=== PATIENT | male | born 1945 | race Caucasian/White ===

== ENCOUNTER 2019-10-19 10:04 | Outpatient (CLI) | payer MEDICARE, SELFPAY ==
[2019-10-19 10:29] LABS: Basophils # 0.1 10^3/uL (0.0-0.1); Basophils % 0.5 %; Eosinophils # 0.3 10^3/uL (0.0-0.8); Eosinophils % 1.3 %; Hematocrit 38.8 % (42.0-52.0); Hemoglobin 12.7 g/dL (11.7-16.6); Lymphocytes # 18.9 10^3/uL (0.8-4.8); Lymphocytes % 74.9 %; Mean Corpuscular HGB Conc 32.7 g/dL (30.0-36.0); Mean Corpuscular Hemoglobin 30.1 pg (28.0-34.0); Mean Corpuscular Volume 91.9 fL (80-94); Mean Platelet Volume 11.7 fL (7.4-10.4); Monocytes # 0.9 10^3/uL (0.2-0.9); Monocytes % 3.4 %; Neutrophils % 19.7 %; Nucleated Red Blood Cells % 0 %; Platelet Count 212 10^3/cmm (130-400); Red Blood Count 4.22 10^6/uL (4.1-5.3); Red Cell Distribution Width 14.3 % (12.1-15.1); White Blood Count 25.3 10^3/uL (4.0-10.0)
[2019-10-19 10:42] LABS: Alanine Aminotransferase 39 U/L (0-41); Albumin Level 4.8 g/dL (3.5-5.2); Alkaline Phosphatase 56 IU/L (40-130); Anion Gap 17.6 (5-19); Aspartate Amino Transferase 30 U/L (0-40); Blood Urea Nitrogen 22 mg/dL (8-23); Calcium 9.6 mg/Dl (8.8-10.2); Carbon Dioxide 22 mmol/L (22-29); Chloride 102 mmol/L (98-107); Globulin 2.1 g/dL (1.3-4.6); Glucose 178 mg/dL (74-106); Lactate Dehydrogenase 185 U/L (135-225); Potassium 4.6 mmol/L (3.5-5.1); Sodium 137 mmol/L (136-145); Total Bilirubin 0.5 mg/dL (0.15-1.2); Total Protein 6.9 g/dL (6.6-8.7)
--- NOTE | 2019-10-19 12:31 | ONC FU_ITS ---
Dr. Phoenix follow up note Patient: Gianni Page Unit #: [id number]: 1945 Dicatated By: Gustavo Phoenix M.D.Date of Visit:Oct 19, 2019 Onc Med Follow-up/Prog Note History of Present Illness: Mr. 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 On 10/18/2017 his white blood count was 51,000 hemoglobin 13.8 hematocrit 43.5 platelets 126,000 neutrophil 14.9% lymphocytes 83.4% and on 10/23/2017 his white blood count was 19.2 hemoglobin 11.4 hematocrit 36 platelets 132,000 neutrophil 22.1% lymphocytes 74.4%. CT scan of chest abdomen pelvis done on 11/05/2017 showed no evidence of central lymphadenopathy or organomegaly except enlarged prostate gland Came for follow-up, denies any specific complaints, no fever or chills, no night sweats, no weight loss, no peripheral lymphadenopathy, no abdominal fullness. Patient has chronic hip problem for which he is going to [place] for evaluation. Medications: Allopurinol 1 (100 mg) Tablet Oral daily, Aspirin 1 (81 mg) Tablet Oral daily, Crestor 1 (20 mg) Tablet Oral daily, Ibuprofen 4 Tablet (of 200 mg) Oral t.i.d., Lisinopril 1 Tablet (of 20 mg) Oral daily, MetFORMIN HCl 1 Tablet (of 850 mg) Oral b.i.d., Metoprolol Succinate ER 0.5 (100 mg) Tablet SR 24 HR Oral daily Allergies: No Known Allergies. Review of Systems: Constitutional - Appetite is good and weight is stable. No fever, chills, hot flashes, or night sweats. Energy level is fair, ENMT - He has sinus congestion/drainage. No mouth sores. No sore throat or difficulty swallowing, Hematologic/Lymphatic - Patient states he bruises easily, Respiratory - No shortness of breath or cough. No pleuritic pain or hemoptysis, Cardiovascular - No angina pain. No palpitations, Gastrointestinal - Patient denies any nausea or vomiting. No heartburn or acid reflux. No diarrhea or constipation. No blood in the stool or black stools, Genitourinary (M) - No dysuria or hematuria. No urinary frequency. No urgency or incontinence, Musculoskeletal - Positive for pain, has appt with orthopedic physician, Neurologic - No headache or dizziness. No numbness/paresthesias or other focal neurologic symptoms, Psychiatric - No anxiety or depression. No insomnia. Vital Signs: Performed on Oct 19, 2019 11:30 Height - 70.00 in Weight - 231.2 lbs (HIGH) BSA - 2.22 sq.m BMI - 33.17 (HIGH) Temperature - 97.1 F (LOW) Pulse - 48 /min (LOW) Respiration - 20 /min BP - 142/70 mm(hg) (HIGH) O2 Sat - 95 % (LOW) Pain - 6 Performance Status: 1 - No physically strenuous activity, but ambulatory and able to carry out light or sedentary work (e.g. office work, light house work). (ECOG) Physical Examination: ENMT - No oral exudates, ulcers, masses, thrush or mucositis. Oropharynx clear. Tongue normal, Hematologic/Lymphatic - No petechiae or purpura. No tender or palpable lymph nodes in the cervical, supraclavicular, axillary or inguinal area, Respiratory - Lungs are clear to auscultation without rhonchi or wheezing, Cardiovascular - Regular rate and rhythm of heart, Abdomen - Non-tender, non-distended, Good bowel sounds. No guarding or rebound tenderness. No pulsatile masses, Extremities - no edema. Lab/Imaging: Test performed on Oct 19, 2019 10:16 Glucose 178 mg/dL LDH, Total 185 IU/L BUN 22 mg/dL Creatinine 0.9 mg/dL Cr Clearance (Est) 105.2000 mL/min Sodium 137 mmol/L Potassium 4.6 mmol/L Chloride 102 mmol/L CO2 22 mmol/L Calcium 9.6 mg/dL Protein, Total 6.9 g/dL Albumin 4.8 g/dL Globulin 2.1 g/dL Bilirubin, Total 0.5 mg/dL Alkaline Phosphatase 56 IU/L AST (SGOT) 30 IU/L ALT (SGPT) 39 IU/L WBC 25.3 10^9/L RBC 4.22 10^12/L HGB 12.7 g/dL HCT 38.8 % MCV 91.9 fl MCH 30.1 pg MCHC 32.7 g/dL RDW 14.3 % Platelet Count 212 10^9/L MPV 11.7 fL Neutrophils (Gran) 5.0 10^9/L Lymphocytes 18.9 10^9/L Monocytes 0.9 10^9/L Eosinophils 0.3 10^9/L Basophils 0.1 10^9/L Neutrophil % 1.3 % Manual Lymphocytes 74.9 % Manual Monocytes 3.4 % Manual Eosinophils 1.3 % Manual Basophils 0.5 % NRBCs 0.00 /100 WBC Test performed on May 04, 2019 12:32 Anion Gap 16.4 Lymphocyte % 71.3 % Monocyte % 4.2 % Eosinophil % 1.4 % Basophils % 0.4 % Impression: Chronic lymphocytic leukemia as per flow cytometry done on hold blood on 10/19/2017. It showed monotypic B cells lymphocytes positive for CD19, CD20, CD5 and CD23. And shows surface lambda light chains restriction. CD10 and FMC 7 are negative. For than 30% of monotypic B-cell expressed CD38 Stage 0 FISH analysis shows positive for gain or rearrangement of IGH, however IGH/CCND1 fusion was not detected ,so this finding suggests either again of IGH or an IGH rearrangement with an unidentified partner. this pattern is not of known prognostic significance IgA 290, IgG 790, IgM 170 and total LDH 227 , All within normal limits CT scan of chest abdomen pelvis done on 11/05/2017 showed no axillary supraclavicular, mediastinal or hilar lymphadenopathy and also there is a no evidence of intra-abdominal, retroperitoneal or pelvic lymphadenopathy either Prostrate gland enlargement, being followed by Dr. Lewis Plan: Discussed with patient regarding his labs white blood count 25.3 hemoglobin 12.7 crit 38.8 platelets 212,000 CMP within normal limit except glucose 178 and his LDH is also normal at 185 Clinically, patient is doing well with no B symptoms suggestive of disease progression his lab workup is within normal range. And no evidence of peripheral lymphadenopathy, At this point we'll continue to monitor and he will return to clinic in 6 months with CBC CMP and LDH. Signed By: Gustavo Phoenix M.D. <<Signature on File>>
== END 2019-10-19 10:05 | disposition home or self-care (01) ==
LOC: ONCMED 10:09
PROVIDERS: Family Provider Internal Medicine; PCP Internal Medicine; Visit Provider Internal Medicine Hematology & Oncology
DX: C91.10 Chronic lymphocytic leukemia of B-cell type not having achieved remission (principal); Z79.82 Long term (current) use of aspirin; N40.0 Benign prostatic hyperplasia without lower urinary tract symptoms
CPT/HCPCS: 80053; 83615; 85025; G0463

== ENCOUNTER 2020-04-19 09:28 | Outpatient (CLI) | payer MEDICARE, SELFPAY ==
[2020-04-19 09:54] LABS: Basophils # 0.2 10^3/uL (0.0-0.1); Basophils % 0.6 %; Eosinophils # 0.3 10^3/uL (0.0-0.8); Eosinophils % 1.1 %; Hematocrit 42.8 % (42.0-52.0); Hemoglobin 13.5 g/dL (11.7-16.6); Lymphocytes # 22.9 10^3/uL (0.8-4.8); Lymphocytes % 79.3 %; Mean Corpuscular HGB Conc 31.5 g/dL (30.0-36.0); Mean Corpuscular Hemoglobin 29.8 pg (28.0-34.0); Mean Corpuscular Volume 94.5 fL (80-94); Mean Platelet Volume 12.2 fL (7.4-10.4); Monocytes # 0.8 10^3/uL (0.2-0.9); Monocytes % 2.7 %; Neutrophils # 4.68 10^3/uL (1.8-7.7); Neutrophils % 16.1 %; Nucleated Red Blood Cells % 0 %; Platelet Count 175 10^3/cmm (130-400); Red Blood Count 4.53 10^6/uL (4.1-5.3); Red Cell Distribution Width 14.3 % (12.1-15.1); White Blood Count 28.9 10^3/uL (4.0-10.0)
[2020-04-19 10:26] LABS: Alanine Aminotransferase 36 U/L (0-41); Albumin Level 4.8 g/dL (3.5-5.2); Alkaline Phosphatase 52 IU/L (40-130); Anion Gap 17.8 (5-19); Aspartate Amino Transferase 33 U/L (0-40); Blood Urea Nitrogen 13 mg/dL (8-23); Calcium 9.2 mg/dL (8.5-10.5); Carbon Dioxide 23 mmol/L (22-29); Chloride 104 mmol/L (98-107); Globulin 2.7 g/dL (1.3-4.6); Glucose 154 mg/dL (65-115); Lactate Dehydrogenase 183 U/L (135-225); Osmolality Calculated 289 mOsm/kg (285-295); Potassium 4.8 mmol/L (3.5-5.1); Sodium 140 mmol/L (136-145); Total Bilirubin 0.6 mg/dL (0.15-1.2); Total Protein 7.5 g/dL (6.6-8.7)
[2020-04-19 10:50] LABS: Slide Review Slide Review Perform
--- NOTE | 2020-04-19 11:27 | ONC FU_ITS ---
Dr. Phoenix follow up note Patient: Gianni Page Unit #: [id number]: 1945 Dicatated By: Gustavo Phoenix M.D.Date of Visit:Apr 19, 2020 Onc Med Follow-up/Prog Note History of Present Illness: Mr. 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 On 10/18/2017 his white blood count was 51,000 hemoglobin 13.8 hematocrit 43.5 platelets 126,000 neutrophil 14.9% lymphocytes 83.4% and on 10/23/2017 his white blood count was 19.2 hemoglobin 11.4 hematocrit 36 platelets 132,000 neutrophil 22.1% lymphocytes 74.4%. CT scan of chest abdomen pelvis done on 11/05/2017 showed no evidence of central lymphadenopathy or organomegaly except enlarged prostate gland Came for follow-up, denies any specific complaints, no fever chills, no nausea or vomiting, no diarrhea or constipation, no night sweats, no weight loss, no peripheral lymphadenopathy, no recurrent fever. Patient is scheduled for left hip surgery/replacement. Medications: Allopurinol 1 (100 mg) Tablet Oral daily, Aspirin 1 (81 mg) Tablet Oral daily, Crestor 1 (20 mg) Tablet Oral daily, Ibuprofen 4 Tablet (of 200 mg) Oral t.i.d., Lisinopril 1 Tablet (of 20 mg) Oral daily, MetFORMIN HCl 1 Tablet (of 850 mg) Oral b.i.d., Metoprolol Succinate ER 0.5 (100 mg) Tablet SR 24 HR Oral daily Allergies: No Known Allergies. Review of Systems: Constitutional - Appetite is good and weight is stable. No fever, chills, hot flashes, or night sweats. Energy level is fair, ENMT - He has sinus congestion/drainage. No mouth sores. No sore throat or difficulty swallowing, Hematologic/Lymphatic - Patient states he bruises easily, Respiratory - No shortness of breath or cough. No pleuritic pain or hemoptysis, Cardiovascular - No angina pain. No palpitations, Gastrointestinal - Patient denies any nausea or vomiting. No heartburn or acid reflux. No diarrhea or constipation. No blood in the stool or black stools, Genitourinary (M) - No dysuria or hematuria. No urinary frequency. No urgency or incontinence, Musculoskeletal - Positive for pain, has appt with orthopedic physician, Neurologic - No headache or dizziness. No numbness/paresthesias or other focal neurologic symptoms, Psychiatric - No anxiety or depression. No insomnia. Vital Signs: Performed on Apr 19, 2020 11:05 Height - 70.00 in Weight - 218.0 lbs (LOW) BSA - 2.17 sq.m BMI - 31.28 (HIGH) Temperature - 97.6 F (LOW) Pulse - 50 /min (LOW) Respiration - 20 /min BP - 130/64 mm(hg) O2 Sat - 97 % Pain - 0 Performance Status: 1 - No physically strenuous activity, but ambulatory and able to carry out light or sedentary work (e.g. office work, light house work). (ECOG) Physical Examination: ENMT - No mouth sores no thrush no jaundice, Respiratory - Lungs are clear, Cardiovascular - Regular rate and rhythm of heart, Abdomen - soft, bowel sounds present, Extremities - No visible edema. Lab/Imaging: Most recent lab results are not available for this patient. Impression: Chronic lymphocytic leukemia as per flow cytometry done on hold blood on 10/19/2017. It showed monotypic B cells lymphocytes positive for CD19, CD20, CD5 and CD23. And shows surface lambda light chains restriction. CD10 and FMC 7 are negative. For than 30% of monotypic B-cell expressed CD38 Stage 0 FISH analysis shows positive for gain or rearrangement of IGH, however IGH/CCND1 fusion was not detected ,so this finding suggests either again of IGH or an IGH rearrangement with an unidentified partner. this pattern is not of known prognostic significance IgA 290, IgG 790, IgM 170 and total LDH 227 , All within normal limits CT scan of chest abdomen pelvis done on 11/05/2017 showed no axillary supraclavicular, mediastinal or hilar lymphadenopathy and also there is a no evidence of intra-abdominal, retroperitoneal or pelvic lymphadenopathy either Prostrate gland enlargement, being followed by Dr. Lewis Plan: Discussed with patient regarding his labs white blood count 28.9 hemoglobin 13.5 crit 42.8 platelets 175,000 CMP within normal limits except glucose 154 and an LDH is also within normal limits at 183 Clinically, patient doing well with no signs symptoms suggestive of disease progression his follow-up labs shows mild/moderate lymphocytosis due to CLL with a normal hemoglobin and platelets as well as LDH. No evidence of peripheral lymphadenopathy or organomegaly we will continue to monitor and he will return to clinic in 6 months with CBC CMP and LDH Signed By: Gustavo Phoenix M.D. <<Signature on File>>
== END 2020-04-19 09:29 | disposition home or self-care (01) ==
LOC: ONCMED 09:31
PROVIDERS: PCP Internal Medicine; Visit Provider Internal Medicine Hematology & Oncology
DX: C91.10 Chronic lymphocytic leukemia of B-cell type not having achieved remission (principal); N40.0 Benign prostatic hyperplasia without lower urinary tract symptoms
CPT/HCPCS: 80053; 83615; 85025; G0463

== ENCOUNTER 2020-10-11 09:23 | Outpatient (CLI) | payer MEDICARE, SELFPAY ==
[2020-10-11 10:15] LABS: Basophils # 0.1 10^3/uL (0.0-0.1); Basophils % 0.5 %; Eosinophils # 0.2 10^3/uL (0.0-0.8); Hematocrit 40.1 % (42.0-52.0); Hemoglobin 12.7 g/dL (11.7-16.6); Lymphocytes # 14.1 10^3/uL (0.8-4.8); Mean Corpuscular HGB Conc 31.7 g/dL (30.0-36.0); Mean Corpuscular Hemoglobin 29.5 pg (28.0-34.0); Mean Corpuscular Volume 93.3 fL (80-94); Mean Platelet Volume 12.8 fL (7.4-10.4); Monocytes # 0.8 10^3/uL (0.2-0.9); Neutrophils # 1.57 10^3/uL (1.8-7.7); Neutrophils % 9.4 %; Nucleated Red Blood Cells % 0 %; Platelet Count 169 10^3/cmm (130-400); Red Cell Distribution Width 14.8 % (12.1-15.1); White Blood Count 16.7 10^3/uL (4.0-10.0)
[2020-10-11 10:34] LABS: Alanine Aminotransferase 32 U/L (0-41); Albumin Level 4.7 g/dL (3.5-5.2); Alkaline Phosphatase 58 IU/L (40-130); Anion Gap 16.7 (5-19); Aspartate Amino Transferase 28 U/L (0-40); Blood Urea Nitrogen 23 mg/dL (8-23); Calcium 9.3 mg/dL (8.5-10.5); Carbon Dioxide 22 mmol/L (22-29); Chloride 102 mmol/L (98-107); Globulin 2.6 g/dL (1.3-4.6); Glucose 139 mg/dL (65-115); Lactate Dehydrogenase 181 U/L (135-225); Osmolality Calculated 288 mOsm/kg (285-295); Potassium 4.7 mmol/L (3.5-5.1); Sodium 136 mmol/L (136-145); Total Protein 7.3 g/dL (6.6-8.7)
[2020-10-11 11:28] LABS: Slide Review Slide Review Perform
--- NOTE | 2020-10-11 12:20 | ONC FU_ITS ---
Dr. Phoenix follow up note Patient: Gianni Page Unit #: [id number]: 1945 Dicatated By: Gustavo Phoenix M.D.Date of Visit:Oct 11, 2020 Onc Med Follow-up/Prog Note History of Present Illness: Mr. 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 On 10/18/2017 his white blood count was 51,000 hemoglobin 13.8 hematocrit 43.5 platelets 126,000 neutrophil 14.9% lymphocytes 83.4% and on 10/23/2017 his white blood count was 19.2 hemoglobin 11.4 hematocrit 36 platelets 132,000 neutrophil 22.1% lymphocytes 74.4%. CT scan of chest abdomen pelvis done on 11/05/2017 showed no evidence of central lymphadenopathy or organomegaly except enlarged prostate gland Came for follow-up, denies any specific complaints, no fever chills, no nausea vomiting, no diarrhea or constipation, no night sweats, no recurrent fever but weight loss which is intentional to control diabetes. Patient is watching his diet and following diabetic diet. No peripheral lymphadenopathy Medications: Allopurinol 1 (100 mg) Tablet Oral daily, Aspirin 1 (81 mg) Tablet Oral daily, Crestor 1 (20 mg) Tablet Oral daily, Ibuprofen 4 Tablet (of 200 mg) Oral t.i.d., Lisinopril 1 Tablet (of 20 mg) Oral daily, MetFORMIN HCl 1 Tablet (of 850 mg) Oral b.i.d., Metoprolol Succinate ER 0.5 (100 mg) Tablet SR 24 HR Oral daily Allergies: No Known Allergies. Review of Systems: Review of Systems is not available for this patient. Vital Signs: Performed on Oct 11, 2020 11:22 Height - 70.00 in Weight - 212.4 lbs (LOW) BSA - 2.14 sq.m BMI - 30.48 (HIGH) Temperature - 97.3 F (LOW) Pulse - 51 /min (LOW) Respiration - 16 /min BP - 126/63 mm(hg) O2 Sat - 97 % Pain - 0 Performance Status: 0 - Fully active, able to carry on all predisease activities without restrictions. (ECOG) Physical Examination: ENMT - No mouth sores, no thrush, no jaundice no cervical or axillary lymphadenopathy, Respiratory - Lungs are clear to auscultation, Cardiovascular - Regular rate and rhythm of heart, Abdomen - Soft, bowel sounds present, Extremities - No visible edema. Lab/Imaging: Test performed on Apr 19, 2020 09:39 LDH (Total) 183 U/L Sodium 140 mmol/L Potassium 4.8 mmol/L Chloride 104 mmol/L CO2 23 mmol/L Anion Gap 17.8 BUN 13 mg/dL Creatinine 0.7 mg/dL Cr Clearance (Est) 125.57 mL/min Glucose 154 mg/dL Calcium 9.2 mg/dL Osmolality - Calculated 289 mOsm/kg Protein, Total 7.5 g/dL Albumin 4.8 g/dL Globulin 2.7 g/dL Bilirubin, Total 0.6 mg/dL ALT (SGPT) 36 U/L AST (SGOT) 33 U/L Alkaline Phosphatase 52 IU/L WBC 28.9 10 3/uL RBC 4.53 10 6/uL HGB 13.5 g/dL HCT 42.8 % MCV 94.5 fL MCH 29.8 pg MCHC 31.5 g/dL RDW 14.3 % Platelet Count 175 10 3/cmm MPV 12.2 fL Neutrophils 4.68 10 3/uL Lymphocytes 22.9 10 3/uL Monocytes 0.8 10 3/uL Eosinophils 0.3 10 3/uL Basophils 0.2 10 3/uL Neutrophil % 16.1 % Lymphocyte % 79.3 % Monocyte % 2.7 % Eosinophil % 1.1 % Basophils % 0.6 % NRBC % 0 % CBC Slide Review Slide Review Perform SLIDE REVIEW AGREES WITH AUTOMATED DIFFERENTIAL Impression: Chronic lymphocytic leukemia as per flow cytometry done on hold blood on 10/19/2017. It showed monotypic B cells lymphocytes positive for CD19, CD20, CD5 and CD23. And shows surface lambda light chains restriction. CD10 and FMC 7 are negative. For than 30% of monotypic B-cell expressed CD38 Stage 0 FISH analysis shows positive for gain or rearrangement of IGH, however IGH/CCND1 fusion was not detected ,so this finding suggests either again of IGH or an IGH rearrangement with an unidentified partner. this pattern is not of known prognostic significance IgA 290, IgG 790, IgM 170 and total LDH 227 , All within normal limits CT scan of chest abdomen pelvis done on 11/05/2017 showed no axillary supraclavicular, mediastinal or hilar lymphadenopathy and also there is a no evidence of intra-abdominal, retroperitoneal or pelvic lymphadenopathy either Prostrate gland enlargement, being followed by Dr. Lewis Plan: Discussed with patient regarding his labs white blood count 16.7 compared to 28.9 on April 19, 2020, hemoglobin 12.7 g hematocrit 40.1 platelets 169,000 CMP within normal limits LDH 181 Clinically, patient doing well with no new signs symptoms, no B symptoms, no peripheral lymphadenopathy, no abdominal fullness, there is no signs symptom suggestive of disease progression his follow-up labs shows mild leukocytosis/lymphocytosis which is stable rather improved with normal hemoglobin and platelet count and LDH, will continue to monitor and he will return to clinic in 6 months with CBC CMP and LDH. Signed By: Gustavo Phoenix M.D. <<Signature on File>>
== END 2020-10-11 09:24 | disposition home or self-care (01) ==
LOC: ONCMED 09:26
PROVIDERS: PCP Physician Assistant; Visit Provider Internal Medicine Hematology & Oncology
DX: C91.10 Chronic lymphocytic leukemia of B-cell type not having achieved remission (principal); D72.820 Lymphocytosis (symptomatic); N40.0 Benign prostatic hyperplasia without lower urinary tract symptoms; Z79.899 Other long term (current) drug therapy
CPT/HCPCS: 36415; 80053; 83615; 85025; G0463

== ENCOUNTER 2021-04-18 09:04 | Outpatient (CLI) | payer MEDICARE, SELFPAY ==
[2021-04-18 09:45] LABS: Basophils # 0.1 10^3/uL (0.0-0.1); Basophils % 0.5 %; Eosinophils # 0.4 10^3/uL (0.0-0.8); Eosinophils % 1.4 %; Hematocrit 38.3 % (42.0-52.0); Hemoglobin 12.5 g/dL (11.7-16.6); Lymphocytes # 22.7 10^3/uL (0.8-4.8); Mean Corpuscular HGB Conc 32.6 g/dL (30.0-36.0); Mean Corpuscular Hemoglobin 31.6 pg (28.0-34.0); Monocytes # 0.8 10^3/uL (0.2-0.9); Monocytes % 2.9 %; Neutrophils # 4.27 10^3/uL (1.8-7.7); Nucleated Red Blood Cells % 0.1 %; Platelet Count 185 10^3/cmm (130-400); Red Blood Count 3.95 10^6/uL (4.1-5.3); Red Cell Distribution Width 14.3 % (12.1-15.1); White Blood Count 28.4 10^3/uL (4.0-10.0)
[2021-04-18 10:10] LABS: Alanine Aminotransferase 20 U/L (0-41); Albumin Level 4.3 g/dL (3.5-5.2); Alkaline Phosphatase 45 IU/L (40-130); Anion Gap 15.7 (5-19); Aspartate Amino Transferase 18 U/L (0-40); Blood Urea Nitrogen 25 mg/dL (8-23); Calcium 8.7 mg/dL (8.5-10.5); Carbon Dioxide 20 mmol/L (22-29); Chloride 105 mmol/L (98-107); Globulin 2.2 g/dL (1.3-4.6); Glucose 125 mg/dL (65-115); Lactate Dehydrogenase 172 U/L (135-225); Osmolality Calculated 288 mOsm/kg (285-295); Potassium 4.7 mmol/L (3.5-5.1); Sodium 136 mmol/L (136-145); Total Bilirubin 0.4 mg/dL (0.15-1.2); Total Protein 6.5 g/dL (6.6-8.7)
--- NOTE | 2021-04-18 11:53 | ONC FU_ITS ---
Dr. Phoenix follow up note Patient: Gianni Page Unit #: [id number]: 1945 Dicatated By: Gustavo Phoenix M.D.Date of Visit:Apr 18, 2021 Onc Med Follow-up/Prog Note History of Present Illness: Mr. 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 On 10/18/2017 his white blood count was 51,000 hemoglobin 13.8 hematocrit 43.5 platelets 126,000 neutrophil 14.9% lymphocytes 83.4% and on 10/23/2017 his white blood count was 19.2 hemoglobin 11.4 hematocrit 36 platelets 132,000 neutrophil 22.1% lymphocytes 74.4%. CT scan of chest abdomen pelvis done on 11/05/2017 showed no evidence of central lymphadenopathy or organomegaly except enlarged prostate gland Came for follow-up, denies any specific complaint, patient said he is feeling much better after hip replacement, no fever chills, no nausea or vomiting, no diarrhea or constipation, no night sweats, no recurrent fever but weight loss which is intentional as patient is watching carbs and sugars. No peripheral lymphadenopathy, no abdominal fullness Medications: Allopurinol 1 (100 mg) Tablet Oral daily, Aspirin 1 (81 mg) Tablet Oral daily, Crestor 1 (20 mg) Tablet Oral daily, Ibuprofen 4 Tablet (of 200 mg) Oral t.i.d., Lisinopril 1 Tablet (of 20 mg) Oral daily, MetFORMIN HCl 1 Tablet (of 850 mg) Oral b.i.d., Metoprolol Succinate ER 0.5 (100 mg) Tablet SR 24 HR Oral daily Allergies: No Known Allergies. Review of Systems: Review of Systems is not available for this patient. Vital Signs: Performed on Apr 18, 2021 11:00 Height - 70.00 in Weight - 203.2 lbs (LOW) BSA - 2.10 sq.m BMI - 29.16 Temperature - 97.3 F (LOW) Pulse - 53 /min (LOW) Respiration - 18 /min BP - 131/69 mm(hg) O2 Sat - 97 % Pain - 5 Fatigue - 0 Performance Status: 0 - Fully active, able to carry on all predisease activities without restrictions. (ECOG) Physical Examination: ENMT - No mouth sores, no thrush, no jaundice shotty cervical lymphadenopathy, Respiratory - Lungs are clear to auscultation, Cardiovascular - Regular rate and rhythm of heart, Abdomen - Soft, bowel sounds present, Extremities - No visible edema or rash. Lab/Imaging: Most recent lab results are not available for this patient. Impression: Chronic lymphocytic leukemia as per flow cytometry done on hold blood on 10/19/2017. It showed monotypic B cells lymphocytes positive for CD19, CD20, CD5 and CD23. And shows surface lambda light chains restriction. CD10 and FMC 7 are negative. For than 30% of monotypic B-cell expressed CD38 Stage 0 FISH analysis shows positive for gain or rearrangement of IGH, however IGH/CCND1 fusion was not detected ,so this finding suggests either again of IGH or an IGH rearrangement with an unidentified partner. this pattern is not of known prognostic significance IgA 290, IgG 790, IgM 170 and total LDH 227 , All within normal limits CT scan of chest abdomen pelvis done on 11/05/2017 showed no axillary supraclavicular, mediastinal or hilar lymphadenopathy and also there is a no evidence of intra-abdominal, retroperitoneal or pelvic lymphadenopathy either Prostrate gland enlargement, being followed by Dr. Lewis Plan: . Discussed with patient regarding his labs white blood count 28.4 compared to 16.7 previously hemoglobin 12.5 hematocrit 38.3 platelets 185,000 absolute lymphocyte count 22,700, CMP within normal limits including LDH Clinically, doing well with no new signs symptoms, no B symptoms his follow-up lab work-up shows fluctuating leukocytosis/lymphocytosis but normal hemoglobin and platelet count no evidence of peripheral lymphadenopathy or organomegaly, will continue to monitor and he will return to clinic in 6 months with CBC CMP and LDH Signed By: Gustavo Phoenix M.D. <<Signature on File>>
== END 2021-04-18 09:05 | disposition home or self-care (01) ==
LOC: ONCMED 09:11
PROVIDERS: PCP Internal Medicine; Visit Provider Internal Medicine Hematology & Oncology
DX: Z08 Encounter for follow-up examination after completed treatment for malignant neoplasm (principal); Z85.72 Personal history of non-Hodgkin lymphomas; N40.0 Benign prostatic hyperplasia without lower urinary tract symptoms; Z79.899 Other long term (current) drug therapy
CPT/HCPCS: 36415; 80053; 83615; 85025; 99214

== ENCOUNTER 2022-12-03 14:51 | Inpatient (IN) | payer MEDICARE, SELFPAY ==
[2022-12-03] VITALS (13 sets, daily range): BP systolic 107–160; BP diastolic 51–84; PULSE 78–92; RESP 18–45; TEMP 37; O2SAT 82–95; BMI 31.4
--- NOTE | 2022-12-03 15:31 | CTR_ITS ---
PROCEDURE INFORMATION: Exam: CT Chest With Contrast; Diagnostic Exam date and time: 12/03/2022 4:27 PM Age: 77 years old Clinical indication: Shortness of breath; Additional info: Covid with hypoxia TECHNIQUE: Imaging protocol: Diagnostic computed tomography of the chest with contrast. Contrast material: OMNI 350; Contrast volume: 80 ml; Contrast route: INTRAVENOUS (IV); REPORTING DATA: Count of CT and Cardiac NM exams in prior 12 months: This patient has received 0 known CTs and 0 known cardiac nuclear medicine studies in the 12 months prior to the current study. COMPARISON: CT chest abd pel w con* 11/05/2017 1:46 PM RADIATION DOSE METRICS: Total DLP (mGy-cm): 460.41 FINDINGS: Lungs: Right upper lobe 22 mm thick walled solitary cavitary lesion, concerning for malignancy, consider further evaluation with tissue sampling. Bilateral dependent airspace infiltrates. Pleural spaces: Unremarkable. No pneumothorax. No pleural effusion. Heart: Cardiomegaly. Coronary arteries: Coronary artery atherosclerotic calcifications. Lymph nodes: Scattered prominent subcentimeter short axis nonspecific mediastinal lymph nodes. Vasculature: Unremarkable. No aortic aneurysm. Liver: Hepatic steatosis. Kidneys and ureters: Right kidney cyst, negative for follow up. Bones/joints: Unremarkable. No acute fracture. Soft tissues: Unremarkable. CT/CT angio chest PE protcl [id number] IMPRESSION: 1. Negative for pulmonary embolus. 2. Right upper lobe 22 mm thick walled solitary cavitary lesion, concerning for malignancy, consider further evaluation with tissue sampling. 3. Coronary artery atherosclerotic calcifications. 4. Cardiomegaly. 5. Bilateral dependent airspace infiltrates. 6. Right kidney cyst, negative for follow up. 7. Hepatic steatosis. 8. Scattered prominent subcentimeter short axis nonspecific mediastinal lymph nodes. COMMENTS: Consistent with the [employer]'s Incidental Findings Committee white paper (J Am Marcell Radiol 2018): Any incidental renal lesion less than 1 cm or classified as too small to characterize, or any incidental cystic renal lesion characterized as simple-appearing, is likely benign. No follow-up imaging is recommended for these lesions per consensus recommendations based on imaging criteria.
--- NOTE | 2022-12-03 15:32 | ED_ITS ---
HPI - SOB/Dyspnea General: Chief Complaint: Shortness of Breath/Dyspnea Stated Complaint: BC sent, Covid + Time Seen by Provider: 12/03/22 15:24 Source: patient and family Mode of arrival: ambulatory Limitations: no limitations History of Present Illness: HPI Narrative: This patient presents to the emergency department by private vehicle accompanied by his family. His daughter assists in providing the history due to his presbycusis and not having his hearing aids with him. He has had body aches fever productive cough sore throat over the past number of days and was deter mined to be COVID-positive at his outpatient clinic. He apparently was started on Paxlovid but states that he is continues to be short of breath and have sore throat and productive cough sometimes of white sometimes of discolored sputum. He apparently has had oxygen saturations in the low to mid 80s at home on room air. He does wear CPAP at night but does not have a history of COPD as diagnosed. He does not have a history of heart failure or coronary artery disease. He has not been eating or drinking well over the last 24 hours. He is a non-smoker. He previously smoked many years ago but has not smoked for approximately 20 years. MD elicited complaint: shortness of breath and cough Associated symptoms: Reports fever(s); Deny abdominal pain, chest pain, extremity pain, hemoptysis, nausea, palpitations, polydipsia, polyuria or vomiting Related Data: Home oxygen amount: none Review of Systems Const: Reports: fever(s), chills and body aches Eyes: Denies: change in vision ENMT: Reports: throat pain and odynophagia Card: Denies: chest pain, palpitations or irregular heart rhythm Resp: Reports: productive cough; Denies: dyspnea, non-productive cough or hemoptysis GI: Denies: abdominal pain, nausea, vomiting or diarrhea : Denies: flank pain, difficulty urinating, dysuria or urinary frequency Musc: Reports: joint pain; Denies: neck pain, back pain, extremity pain or extremity swelling Skin/Breast: Denies: rash or erythema Neuro: Denies: headache(s), numbness in extremities or weakness in extremities Endo: Denies: polyuria or polydipsia [facility] ED PFSH: Medical History (Updated 12/03/22 @ 18:55 by Ant Krishnan MD) HOCM (hypertrophic obstructive cardiomyopathy) Hypertension Prediabetes Surgical History (Updated 12/03/22 @ 18:49 by Ant Krishnan MD) History of hip surgery Family History (Updated 12/03/22 @ 18:49 by Ant Krishnan MD) Other CAD (coronary artery disease) Social History (Updated 12/03/22 @ 18:50 by Ant Krishnan MD) Smoking and tobacco status: former smoker Alcohol intake: current Alcohol intake frequency: few times a week Housing: House Physical Exam Narrative: EXAM NARRATIVE: Appears to be in no acute distress. He is able to communicate with speaking with loud voice and his answers are appropriate and goal-directed. Const: COMMON NORMALS: average body habitus, patient oriented x3 and alert GENERAL APPEARANCE: cooperative ORIENTATION/CONSCIOUSNESS: Yes awake HENMT: COMMON NORMALS: normocephalic, Normal nasal mucous membranes and turbinates present, moist oral mucous membranes and oropharynx normal (No erythema, no masses, uvula midline. Tongue mobile.) HEAD & SCALP: normocephalic FACE & SINUS: normal facial exam and face symmetric NOSE: Normal nasal mucous membranes and turbinates present Eye: COMMON NORMALS: Equal, round and reactive pupils present, EOMs intact bilaterally and conjunctivae normal CONJUNCTIVA: Yes conjunctivae normal PUPIL: Yes Equal, round and reactive pupils present Neck/C-Spine: COMMON NORMALS: full ROM, no JVD and No carotid bruits Chest: COMMONS NORMALS: normal inspection of the chest Resp: COMMON NORMALS: normal respiratory effort and No retractions AUSCULTATION: crackles and no wheezes Cardio: COMMON NORMALS: no JVD, regular rate, regular rhythm, No murmurs present (Cardio) and Peripheral pulses 2+ throughout RATE: regular rate RHYTHM: regular rhythm PERIPHERAL PULSES: Peripheral pulses 2+ throughout GI: COMMON NORMALS: Normal to inspection, nondistended, normoactive bowel sounds present, Soft to palpation and non-tender PALPATION: Yes Soft to palpation : COMMON NORMALS: Yes no CVA tenderness BLADDER/KIDNEY EXAM: Yes no CVA tenderness Back/Pelvis: COMMON NORMALS: no CVA tenderness, thoracic and lumbar spine normal to inspection, no thoracic nor lumbar tenderness and thoraco-lumbar ROM normal Extremity: COMMON NORMALS: normal to inspection, full ROM, capillary refill normal, no calf tenderness and no pedal edema Neuro: COMMON NORMALS: patient oriented x3, moves all extremities and no focal motor deficits SENSORIUM/ORIENTATION: Yes alert Psych: COMMON NORMALS: mental status grossly normal Skin: COMMON NORMALS: no rashes or lesions noted and turgor normal GENERAL SKIN EXAM: no rashes or lesions noted and turgor normal Course Reevaluation(s): Reevaluation #1: The patient clinically looks somewhat better. His CTA is reassuring and that there is no pulmonary embolus however there is other changes that will need to be followed up. His initial laboratories are noted. Discussed admission with patient and family who agreed to that plan. Time: 17:58 Consultations: Consultation #1: Spoke with Dr. Rodriguez from the hospitalist service who agreed to accept the patient for admission. Time: 17:57 Vital Signs: Vital signs: Vital Signs Pulse Rate 89 12/03/22 18:30 Respiratory Rate 45 H 12/03/22 18:30 Blood Pressure 160/70 12/03/22 18:30 Pulse Oximetry 89 L 12/03/22 18:30 Oxygen Delivery Me thod 12/03/22 15:13 MDM - SOB/Dyspnea Medical Decision Making This patient with a history of COVID-positive status determined earlier this week who had progressive cough, subjective shortness of breath without chest pain as well as associated fever and notable hypoxia on room air noted by pulse oximetry at home presented to our emergency department for further evaluation and treatment. It was noted that he required oxygen to maintain his O2 sat greater than 90% in the emergency department. His work-up ensued to evaluate for any other potential etiologies to his current presentation other than Covid 19. It was notable that he had an elevation in his D-dimer which is known and expected as well as elevation in his BNP and troponin which certainly could be related to his acute COVID-19 illness but certainly also could be unmask cardiovascular disease. He has a history of chronic lymphocytic leukemia and is also notable that he had an incidental finding on the mass on his chest CT this evening. Negative for any evidence of pulmonary embolus. Does not appear to be ACS or other worrisome condition at this time. The patient is being admitted to the hospital service for continuing oxygen therapy, steroids as indicated, and monitoring his cardiovascular status. Medical Records I reviewed the patient's medical records. Prior history of CLL. Lab Data I reviewed the patient's lab results. 12/03/22 15:25 12/03/22 15:25 Labs/Radiology: Radiology Impressions Chest CTA 12/03/22 15:31 IMPRESSION: 1. Negative for pulmonary embolus. 2. Right upper lobe 22 mm thick walled solitary cavitary lesion, concerning for malignancy, consider further evaluation with tissue sampling. 3. Coronary artery atherosclerotic calcifications. 4. Cardiomegaly. 5. Bilateral dependent airspace infiltrates. 6. Right kidney cyst, negative for follow up. 7. Hepatic steatosis. 8. Scattered prominent subcentimeter short axis nonspecific mediastinal lymph nodes. COMMENTS: Consistent with the [employer]'s Incidental Findings Committee white paper (J Am Marcell Radiol 2018): Any incidental renal lesion less than 1 cm or classified as too small to characterize, or any incidental cystic renal lesion characterized as simple-appearing, is likely benign. No follow-up imaging is recommended for these lesions per consensus recommendations based on imaging criteria. Laboratory Results WBC 27.7 10^3/uL (4.0-10.0) H 12/03/22 15:25 RBC 4.05 10^6/uL (4.1-5.3) L 12/03/22 15:25 Hgb 12.3 g/dL (11.7-16.6) 12/03/22 15:25 Hct 37.6 % (42.0-52.0) L 12/03/22 15:25 MCV 92.8 fl (80-94) 12/03/22 15:25 MCH 30.4 pg (28.0-34.0) 12/03/22 15:25 MCHC 32.7 g/dL (30.0-36.0) 12/03/22 15:25 RDW 15.1 % (12.1-15.1) 12/03/22 15:25 Plt Count 157 10^3/cmm (130-400) 12/03/22 15:25 MPV 12.0 fL (7.4-10.4) H 12/03/22 15:25 Neut % (Auto) 21.3 % 12/03/22 15:25 Lymph % (Auto) 77.1 % 12/03/22 15:25 [place] % (Auto) 1.4 % 12/03/22 15:25 Eos % (Auto) 0.0 % 12/03/22 15:25 Baso % (Auto) 0.1 % 12/03/22 15:25 Neut # (Auto) 5.90 10^3/uL (1.8-7.7) 12/03/22 15:25 Lymph # (Auto) 21.4 10^3/uL (0.8-4.8) H 12/03/22 15:25 [place] # (Auto) 0.4 10^3/uL (0.2-0.9) 12/03/22 15:25 Eos # (Auto) 0.0 10^3/uL (0.0-0.8) 12/03/22 15:25 Baso # (Auto) 0.0 10^3/uL (0.0-0.1) 12/03/22 15:25 Nucleated RBC % (auto) 0 % 12/03/22 15:25 Nucleated RBCs # 0.0 /100WBC 12/03/22 15:25 D-Dimer 2.11 ug/mIFEU (0-0.59) H 12/03/22 15:25 Sodium 129 mmol/L (136-145) L 12/03/22 15:25 Potassium 4.5 mmol/L (3.5-5.1) 12/03/22 15:25 Chloride 92 mmol/L (98-107) L 12/03/22 15:25 Carbon Dioxide 17 mmol/L (22-29) L 12/03/22 15:25 Anion Gap 24.5 (5-19) H 12/03/22 15:25 BUN 45 mg/dL (8-23) H 12/03/22 15:25 Creatinine 1.8 mg/dL (0.7-1.2) H 12/03/22 15:25 GFR Calculation Not Reportable 12/03/22 15:25 Glucose 170 mg/dL (65-115) H 12/03/22 15:25 Calculated Osmolality 284 mOsm/kg (285-295) L 12/03/22 15:25 Calcium 8.4 mg/dL (8.5-10.5) L 12/03/22 15:25 Total Bilirubin 1.2 mg/dL (0.15-1.2) 12/03/22 15:25 AST 24 U/L (0-40) 12/03/22 15:25 ALT 22 U/L (0-41) 12/03/22 15:25 Alkaline Phosphatase 41 U/L (40-130) 12/03/22 15:25 Troponin T Baseline 203 ng/L (0-15) H* 12/03/22 15:25 Troponin T 120 Minute 145.6 ng/L (0-15) H 12/03/22 17:27 Delta Troponin T -57.4 ABS# (0-10) L 12/03/22 17:27 NT-Pro-B Natriuret Pep 707 pg/mL (0-450) H 12/03/22 15:25 Total Protein 7.2 g/dL (6.6-8.7) 12/03/22 15:25 Albumin 3.9 g/dL (3.5-5.2) 12/03/22 15:25 Globulin 3.3 g/dL (1.3-4.6) 12/03/22 15:25 Influenza Type A Ag negative (Negative) 12/03/22 15:58 Influenza Type B Ag negative (Negative) 12/03/22 15:58 SARS-CoV-2 Ag (Rapid) negative (Negative) 12/03/22 15:58 EKG Data EKG 1: I personally reviewed and interpreted this EKG as follows: Interpretation: Contemporaneous review of EKG reveals sinus rhythm with ventricular rate of 95 bpm. Normal OH interval, QRS duration, corrected QT interval. Loss of R wave anterior precordial leads suggestive of possible remote anterior wall MN. Isolated nonspecific ST-T wave changes noted in limb lead III. 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
--- NOTE | 2022-12-03 15:39 | ECG_ITS ---
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 Measurements Intervals [place] Rate: 95 P: 11 SD: 168 QRS: 33 QRSD: 90 T: 64 QT: 321 QTc: 405 Interpretive Statements SINUS RHYTHM POSSIBLE ANTERIOR MYOCARDIAL INFARCTION , OF INDETERMINATE AGE [30 ms Q WAVE IN V3/V4, OR R < 0.2 mV IN V4] Compared to ECG 10/19/2017 11:07:59 Myocardial infarct finding now present T-wave abnormality no longer present Electronically Signed On 12-03-2022 18:04:19 MICROMATIC HONE OPERATOR by Adryan Vieira M.D. [id number]
[2022-12-03 15:43] LABS: Basophils % 0.1 %; Hematocrit 37.6 % (42.0-52.0); Hemoglobin 12.3 g/dL (11.7-16.6); Lymphocytes # 21.4 10^3/uL (0.8-4.8); Lymphocytes % 77.1 %; Mean Corpuscular HGB Conc 32.7 g/dL (30.0-36.0); Mean Corpuscular Hemoglobin 30.4 pg (28.0-34.0); Mean Corpuscular Volume 92.8 fl (80-94); Monocytes # 0.4 10^3/uL (0.2-0.9); Monocytes % 1.4 %; Neutrophils % 21.3 %; Nucleated Red Blood Cells % 0 %; Platelet Count 157 10^3/cmm (130-400); Red Blood Count 4.05 10^6/uL (4.1-5.3); Red Cell Distribution Width 15.1 % (12.1-15.1); White Blood Count 27.7 10^3/uL (4.0-10.0)
[2022-12-03 15:58] LABS: D Dimer 2.11 ug/mIFEU (0-0.59)
[2022-12-03] MEDS: dexamethasone 10 mg/mL INJ IVP (16:01)
[2022-12-03] MEDS: sodium chloride 0.9% 1,000 ML 999 ML IV (16:01)
[2022-12-03 16:02] LABS: Troponin(5th) Baseline 203 ng/L (0-15)
[2022-12-03 16:11] LABS: Alanine Aminotransferase 22 U/L (0-41); Albumin Level 3.9 g/dL (3.5-5.2); Alkaline Phosphatase 41 U/L (40-130); Anion Gap 24.5 (5-19); Aspartate Amino Transferase 24 U/L (0-40); Blood Urea Nitrogen 45 mg/dL (8-23); Calcium 8.4 mg/dL (8.5-10.5); Carbon Dioxide 17 mmol/L (22-29); Chloride 92 mmol/L (98-107); Globulin 3.3 g/dL (1.3-4.6); Glucose 170 mg/dL (65-115); NT Pro B Type Natriuretic Pept 707 pg/mL (0-450); Osmolality Calculated 284 mOsm/kg (285-295); Potassium 4.5 mmol/L (3.5-5.1); Sodium 129 mmol/L (136-145); Total Bilirubin 1.2 mg/dL (0.15-1.2); Total Protein 7.2 g/dL (6.6-8.7)
[2022-12-03 16:33] LABS: Influenza A by IFA negative (Negative); Influenza B by IFA negative (Negative)
[2022-12-03 16:36] LABS: Slide Review Slide Review Perform
[2022-12-03] MEDS: iohexol 350 mg/mL 500 mL Btl (per mL) IV (16:41)
[2022-12-03 16:51] LABS: SARS Covid-2 Antigen negative (Negative)
--- NOTE | 2022-12-03 17:39 | ECG_ITS ---
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 Measurements Intervals [place] Rate: 89 P: 47 W[place]: 175 QRS: 42 QRSD: 93 T: 63 QT: 337 QTc: 412 Interpretive Statements SINUS RHYTHM POSSIBLE ANTERIOR MYOCARDIAL INFARCTION , OF INDETERMINATE AGE [30 ms Q WAVE IN V3/V4, OR R < 0.2 mV IN V4] Compared to ECG 12/03/2022 15:57:52 No significant changes Electronically Signed On 12-03-2022 18:09:23 ZINC PLATER by Adryan Vieira M.D. [email or web address]/store/[id number]
[2022-12-03 18:05] LABS: Troponin 5 2HR 145.6 ng/L (0-15); Troponin 5 2HR Delta -57.4 ABS# (0-10)
--- NOTE | 2022-12-03 18:06 | PC.NURSE ---
NOTIFIED DR. VELEZ OF [place] OF 145.6 HE VERBALIZED UNDERSTANDING NO FURTHER ORDERS.
--- NOTE | 2022-12-03 18:20 | PM.HP ---
Providers/Chief Complaint Primary Care Provider: Adriel Barboza DO Chief Complaint: BC sent, Covid + History of Present Illness Gianni Page is a 77 year old male who carries history of hokum, hypertension, prediabetes, COPD presented to the hospital for worsening of shortness of breath and hypoxia. He was diagnosed with COVID-19 this Wednesday by his PCP. His symptoms started a few days before his diagnosis, he has not noticed any fever but endorsing shortness of breath, productive cough yellow sputum production, no active chest pain, diarrhea or vomiting. He is endorsing sore throat which is making him very uncomfortable to the point he is not able to eat anything freely. In the ER CT was done to rule out PE however it showed right upper lobe 22 mm cavitary lesion, case was discussed with Dr. Rob who recommended management of COVID-19 first and then outpatient management for cavitary lesion Patient is requiring 6 L of oxygen Pleasant and cooperative Cracking jokes Very hard of tolerating Daughter is present in the room Patient is full code Review of Systems Const: Denies: fever(s) Eyes: Denies: change in vision ENMT: Denies: throat pain Card: Reports: dyspnea on exertion Resp: Reports: dyspnea and productive cough GI: Denies: abdominal pain : Denies: flank pain Musc: Denies: neck pain Skin/Breast: Denies: rash Neuro: Denies: headache(s) Psych: Denies: anxiety Endo: Denies: polyuria [place]/Lymph: Denies: easy bruising All/Imm: Denies: urticaria Medications/Allergies Home Medications Medication Instructions Recorded Confirmed Last Taken Type allopurinol 100 mg tablet 100 mg PO DAILY 12/03/22 12/03/22 12/02/22 History amlodipine 10 mg tablet 10 mg PO DAILY 12/03/22 12/03/22 12/02/22 History aspirin 81 mg chewable tablet 81 mg PO DAILY 12/03/22 12/03/22 12/02/22 History lisinopril 40 mg tablet 40 mg PO DAILY 12/03/22 12/03/22 12/02/22 History metformin 850 mg tablet 850 mg PO BID 12/03/22 12/03/22 12/02/22 History metoprolol succinate 100 mg 50 mg PO DAILY 12/03/22 12/03/22 12/02/22 History tablet,extended release 24 hr nirmatrelvir 300 mg (150 mg 1 ea PO . DIRECTED 12/03/22 12/03/22 12/03/22 History x2)-ritonavir 100 mg tablet,dose pack(EUA) (Paxlovid) rosuvastatin 20 mg tablet 20 mg PO DAILY 12/03/22 12/03/22 12/02/22 History Allergies Allergy/AdvReac Type Severity Reaction Status Date / Time No Known Allergies Allergy Verified 12/03/22 15:15 PFSH Acute PFSH: Medical History (Updated 12/03/22 @ 18:55 by Ant Krishnan MD) HOCM (hypertrophic obstructive cardiomyopathy) Hypertension Prediabetes Surgical History (Updated 12/03/22 @ 18:49 by Ant Krishnan MD) History of hip surgery Family History (Updated 12/03/22 @ 18:49 by Ant Krishnan MD) Other CAD (coronary artery disease) Social History (Updated 12/03/22 @ 18:50 by Ant Krishnan MD) Smoking and tobacco status: former smoker Alcohol intake: current Alcohol intake frequency: few times a week Housing: House Vitals/I&O/Wt Last Vital Signs Pulse 86 12/03/22 18:00 Resp 36 H 12/03/22 18:00 BP 147/69 12/03/22 18:00 Pulse Ox 90 12/03/22 18:00 O2 Del Method 12/03/22 15:13 Weight last 48 hrs Weight 92.986 kg Physical Exam Narrative: Morbidly obese Very hard of hearing Pleasant and cooperative Cracking jokes in the ER Currently on 6 L He is checking his email on the phone S1, S2 No audible stridor or wheezing Abdomen soft No signs of edema Clinically looks dehydrated Currently on 6 L of oxygen No audible stridor or wheezing Daughter at the bedside Appears stated age Data 12/03/22 15:25 12/03/22 15:25 A&P Assessment and plan (1) COVID-19: (2) Hypoxia: (3) Cavitary lesion of lung: (4) JO (acute kidney injury): (5) Sore throat: (6) Dehydration: Plan Acute hypoxia related to COVID-19 2.2 cm cavitary lesion right upper lobe Currently on 6 L Clinically looks dehydrated With history of HOCM I would like to hydrate him gently overnight D-dimer is high however no signs of PE Start remdesivir and Decadron He has taken a few doses of Paxlovid as well Patient is full code Cardiac diet I will check him A1c level and start sliding scale of insulin Admit to [facility] inpatient Afebrile Significant leukocytosis: Daughter is stating that he has some kind of leukemia for which she is following up with Dr. Lebron Phoenix, they are not aware of the diagnosis, review of records revealed he has been diagnosed with CLL and he follows up with him every 6 months No B-cell symptoms HOCM: Gentle fluid hydration Avoid diuresis Request echo Prediabetes Insulin sliding scale Hypertension: I would continue his amlodipine and hold lisinopril JO related to dehydration gentle fluid hydration Hold lisinopril Significant troponin elevation: No active chest pain: No ischemic changes on EKG, type II NM? Myocarditis? We will follow-up with echo No signs of PE High D-dimer All these elements could point towards underlying leukemia I would use DVT prophylaxis with heparin Full code Cardiac diet Attestations Medical Necessity Statement*: More than 2 midnights and is Diagnoses COVID-19 U07.1 Hypoxia R09.02 Cavitary lesion of lung J98.4 JO (acute kidney injury) N17.9 Sore throat J02.9 Dehydration E86.0
--- NOTE | 2022-12-03 19:39 | USCV_ITS ---
Camilo Asa Age: 77 Gender: M : 1945 Exam Date: 12/03/2022 20:23 Ordering Phys: Ant Krishnan MD Technologist: CYNTHIA Exam Location: [facility] [place] Indication: HCM, COVID + isolation, productive cough. No history of cardiac intervention per patient BP: 160 / 70 HR: 75 Rhythm: Sinus Technical Quality: Fair with OPTISON MEASUREMENTS (Male / Female) Normal Values 2D ECHO LV Diastolic Diameter PLAX 3.8 cm 4.2 - 5.9 / 3.9 - 5.3 cm LV Systolic Diameter PLAX 2.7 cm IVS Diastolic Thickness 1.2 cm 0.6 - 1.0 / 0.6 - 0.9 cm IVS Systolic Thickness 1.4 cm LVPW Diastolic Thickness 1.5 cm 0.6 - 1.0 / 0.6 - 0.9 cm LVPW Systolic Thickness 1.8 cm LVOT Diameter 2.2 cm LV Ejection Fraction 2D Teich 58.3 % LV Ejection Fraction MOD 2C 62.9 % LV Ejection Fraction 2C AL 64.2 % LA Diameter 4.6 cm LA Width 4.2 cm LA Height 6.3 cm RA Width 3.6 cm RA Height 4.2 cm Aorta at Sinotubular Diameter 3.0 cm IVC Diameter 1.6 cm M-MODE Aortic Annulus Diameter 3.1 cm LA Ao Ratio MM 1.5 MV E Point Septal Separation 0.4 cm DOPPLER AV Peak Velocity 145.0 cm/s LVOT Peak Velocity 137.0 cm/s AV Area Cont Eq vti 3.1 cm squared AV Area Cont Eq pk 3.5 cm squared MV Area PHT 2.4 cm squared Mitral E to A Ratio 0.7 MV E' Velocity 51.0 cm/s Mitral E to MV E' Ratio 12.0 Mitral E to LV E' Lateral Ratio 11.0 Mitral E to LV E' Septal Ratio 13.2 TR Peak Velocity 194.0 cm/s TR Peak Gradient 15.1 mmHg TV Peak E Velocity 64.0 cm/s Right Atrial Pressure 5.0 mmHg Pulmonary Artery Systolic Pressu 20.1 mmHg FINDINGS Left Ventricle Normal left ventricular size and systolic function, EF 57 %. No regional wall motion abnormalities. Grade I/IV diastolic dysfunction (abnormal relaxation filling pattern), normal to mildly elevated filling pressures. Right Ventricle The right ventricle is normal in size and function. Right Atrium The right atrium is normal in size. Left Atrium Mildly increased left atrial size. Mitral Valve No gross abnormalities noted Aortic Valve Thickened aortic valve. Tricuspid Valve No gross abnormalities noted Pulmonic Valve Pulmonic valve not well visualized. Pericardium Normal pericardium without effusion. Aorta Normal aortic annulus size. IVC Normal inferior vena cava. CONCLUSIONS Normal left ventricular size and systolic function, EF 57 %. No regional wall motion abnormalities. Grade I/IV diastolic dysfunction (abnormal relaxation filling pattern), normal to mildly elevated filling pressures. Thickened aortic valve. No significant stenotic or regurgitant lesions, based on the color-flow Doppler studies There is no pericardial effusion. Technically somewhat difficult study because of the poor ultrasonic window. Dr Lolis Corea MD FACC (Electronically Signed) Final Date: 04 December 2022 09:58 S
[2022-12-03 19:45] LABS: Procalcitonin 24.82 ng/mL (0-0.5)
[2022-12-03 20:09] LABS: Adenovirus Not Detected (NOT DETECT); Chlamydia Pneumoniae Not Detected (NOT DETECT); Coronavirus 229E,HKU1,NL63,OC4 Not Detected (NOT DETECT); Human Metapneumovirus Not Detected (NOT DETECT); Human Rhinovirus/Enterovirus Not Detected (NOT DETECT); Influenza A Not Detected (NOT DETECT); Influenza A H1 Not Detected (NOT DETECT); Influenza A H1-2009 Not Detected (NOT DETECT); Influenza A H3 Not Detected (NOT DETECT); Influenza B Not Detected (NOT DETECT); Mycoplasma Pneumoniae Not Detected (NOT DETECT); Parainfluenza Virus Type 1 Not Detected (NOT DETECT); Parainfluenza Virus Type 2 Not Detected (NOT DETECT); Parainfluenza Virus Type 3 Not Detected (NOT DETECT); Parainfluenza Virus Type 4 Not Detected (NOT DETECT); Respiratory Syncytial Virus A Not Detected (NOT DETECT); Respiratory Syncytial Virus B Not Detected (NOT DETECT); SARS-COV-2 Detected (NOT DETECT)
[2022-12-03 20:58] LABS: Lactate Dehydrogenase 187 U/L (135-225)
--- NOTE | 2022-12-03 21:39 | ECG_ITS ---
[facility] Test Date: 2022-12-03 Pat Name: Gianni Page Department: Room: 261 Gender: Male It Applications Analyst: : 1945 Requested By: Syed Bacon Order Number: [id number] Familia MD: Lolis Corea M.D. Measurements Intervals [place] Rate: 80 P: 37 FL: 189 QRS: 14 QRSD: 96 T: 47 QT: 369 QTc: 428 Interpretive Statements SINUS RHYTHM LOW QRS VOLTAGE IN PRECORDIAL LEADS [QRS DEFLECTION < 1.0 mV IN CHEST LEADS] POSSIBLE ANTERIOR MYOCARDIAL INFARCTION , OF INDETERMINATE AGE [30 ms Q WAVE IN V3/V4, OR R < 0.2 mV IN V4] Compared to ECG 12/03/2022 17:44:19 Low QRS voltage now present Myocardial infarct finding still present Electronically Signed On 12-04-2022 21:52:37 MANAGER MONEY by Lolis Corea M.D. [id number]
[2022-12-03] MEDS: aspirin 325 mg EC Tablet PO (21:40)
[2022-12-03] MEDS: hyDRALAzine 10 mg Tablet PO (21:41)
[2022-12-03] MEDS: sodium chloride 0.9% 1,000 ML 75 ML IV (21:42)
[2022-12-03] MEDS: remdesivir 200 MG in sodium chloride 0.9% (100 ml) 60 ML 100 MG IV (21:42)
[2022-12-03 21:55] LABS: Troponin 5 6HR 130.9 ng/L (0-15)
[2022-12-03 22:19] LABS: Glucose Point of Care 228 mg/dL (70-110)
[2022-12-03] MEDS: heparin drip 25,000 UNIT/500 ML PREMIX 26 UNIT IV (23:03)
[2022-12-03] MEDS: heparin 5,000 unit/mL INJ 1 mL IV (23:07)
[2022-12-03 23:08] LABS: Partial Thromboplastin Time 28.3 SECONDS (23.9-36.7)
[2022-12-04] VITALS (11 sets, daily range): BP systolic 106–134; BP diastolic 60–75; PULSE 63–88; RESP 16–20; TEMP 36.4–36.9; O2SAT 91–95
[2022-12-04 04:46] LABS: ABG PCO2 34.1 mmHg (35-45); ABG PH Result 7.35 (7.35-7.45); Arterial Blood Gas Hematocrit 36.1 % (42-52); Base Excess ABG -6.1 mmol/L (-2.0-2.0); Blood Gas Allen Test Pos; Blood Gas Sample Type Arterial; HCO3 ABG 18.8 mmol/L (22-26); PO2 ABG 70.9 mmHg (80.0-100.0)
[2022-12-04 04:48] LABS: Blood Gas Sample Site Radial, left; Oxygen Device BIPAP
[2022-12-04 05:29] LABS: Hematocrit 34.3 % (42.0-52.0); Hemoglobin 11.3 g/dL (11.7-16.6); Mean Corpuscular HGB Conc 32.9 g/dL (30.0-36.0); Mean Corpuscular Hemoglobin 30.1 pg (28.0-34.0); Mean Corpuscular Volume 91.5 fl (80-94); Mean Platelet Volume 12.1 fL (7.4-10.4); Platelet Count 125 10^3/cmm (130-400); Red Blood Count 3.75 10^6/uL (4.1-5.3); Red Cell Distribution Width 14.9 % (12.1-15.1); White Blood Count 24.4 10^3/uL (4.0-10.0)
[2022-12-04 05:49] LABS: Anion Gap 19.8 (5-19); Blood Urea Nitrogen 32 mg/dL (8-23); C Reactive Protein 292.6 mg/L (0.0-4.9); Calcium 8.2 mg/dL (8.5-10.5); Carbon Dioxide 18 mmol/L (22-29); Chloride 102 mmol/L (98-107); Glucose 266 mg/dL (65-115); Osmolality Calculated 298 mOsm/kg (285-295); Potassium 3.8 mmol/L (3.5-5.1); Sodium 136 mmol/L (136-145)
[2022-12-04] MEDS: perflutren protein-a microsphr 0.22 mg/mL SDV 3 mL IV (05:58)
[2022-12-04 06:08] LABS: Absolute Segmented Neutrophil 5.9 10/cmm (1.6-7.1); Eosinophils 0 %; Lymphocytes 74 %; Lymphocytes Absolute 18.1 10^3/cmm (1.2-3.4); Monocytes Absolute 0.5 10^3/cmm (0.1-0.6); Segmented Neutrophils 24 %; Total Cells Counted 100 (0-100)
[2022-12-04 06:09] LABS: Absolute Neutrophil 5.9 10^3/cmm (1.4-6.5); Burr Cells Trace; Platelet Estimate Decreased (Normal)
[2022-12-04 06:22] LABS: Partial Thromboplastin Time 124.2 SECONDS (23.9-36.7)
[2022-12-04 06:42] LABS: Glucose Point of Care 256 mg/dL (70-110)
[2022-12-04 06:47] LABS: INR 1.28 (0.8-1.2)
[2022-12-04 06:48] LABS: Fibrinogen 903 mg/dL (174-498)
[2022-12-04 06:51] LABS: D Dimer 2.26 ug/mIFEU (0-0.59)
[2022-12-04 06:55] LABS: Partial Thromboplastin Time 109.7 SECONDS (23.9-36.7)
[2022-12-04] MEDS: insulin lispro 100 unit/1 mL SUBCUT ×3 (08:42→17:52)
[2022-12-04] MEDS: atorvastatin 40 mg Tablet 80 MG PO (08:44)
[2022-12-04] MEDS: sennosides-docusate Tablet 1 TAB PO (08:44)
[2022-12-04] MEDS: amlodipine 10 mg Tablet PO (08:44)
[2022-12-04] MEDS: allopurinol 100 mg Tablet PO (08:44)
[2022-12-04] MEDS: zinc gluconate 50 mg Tablet PO (08:45)
[2022-12-04] MEDS: metoprolol succinate ER (24 HR) 100 mg Tablet 50 MG PO (08:45)
[2022-12-04] MEDS: ascorbic acid 500 mg Tablet PO (08:45)
[2022-12-04] MEDS: dexamethasone 4 mg Tablet 6 MG PO (08:45)
[2022-12-04] MEDS: aspirin 81 mg Chew Tablet PO (08:45)
[2022-12-04 11:50] LABS: Glucose Point of Care 306 mg/dL (70-110)
[2022-12-04] MEDS: sodium chloride 0.9% 1,000 ML 75 ML IV (12:17)
[2022-12-04 13:03] LABS: Partial Thromboplastin Time 57.8 SECONDS (23.9-36.7)
--- NOTE | 2022-12-04 17:05 | PM.PN ---
Subjective Subjective: Patient's cardiac enzymes down trended with negative troponin delta at 2 one 6-hour. He denies any current chest pain. No acute ST-T wave changes noted on his EKGs. Echocardiogram does not show any regional wall motion abnormalities. He has in the interim developed lower extremity minimal pitting edema and has a puffiness over his face. Medications: Reviewed: Yes Vitals/I&O/Wt Last Vital Signs Temp 98.0 F 12/04/22 14:00 Pulse 77 12/04/22 14:00 Resp 16 12/04/22 14:00 BP 134/68 12/04/22 14:00 Pulse Ox 95 12/04/22 14:00 O2 Del Method 12/04/22 14:00 O2 Flow Rate 6 12/04/22 09:18 12/04/22 12/04/22 12/04/22 06:59 14:59 22:59 Intake Total 191.967 / 1840.900 2471 / 1600 Balance 191.967 / 4624.928 2778 / 1600 Weight last 48 hrs Weight 93.621 kg Weight 92.986 kg Physical Exam Narrative: General: No acute distress, AO x3 HEENT: PERRLA, pupils bilaterally equal and reactive, pallors not present Chest: Normal vesicular breath sounds, no added sounds, equal good air entry bilaterally CVS: S1-S2 regular, no murmurs, no tachycardia, no gallops, no rubs Abdomen: Soft, nontender, no organomegaly, bowel sounds present Neuro: No focal deficits, no facial deformity, AO x3, power 5/5 in all limbs Extremities: Bilateral lower extremity pitting edema Data 12/04/22 05:04 12/04/22 05:04 Micro: Microbiology 12/03/22 23:10 MRSA Culture - Final Nose A&P Assessment and plan (1) COVID-19: (2) Hypoxia: (3) Cavitary lesion of lung: (4) JO (acute kidney injury): (5) Sore throat: (6) Dehydration: Plan # Acute hypoxia related to COVID-19 Currently on 6 L per minute Remdisivir 200mg iv x 1 followed by 100mg iv daily dexamethasone 6mg daily, change p.o. to IV duoneb q6h, budesonide q12h empiric CTX and azithromycin Flutter valve/spirometer at bedside trend inflammatory markers including CRP CTA negative for PE #Elevated troponins, NSTEMI Suspect this is related to NSTEMI versus type II [place] Troponin trend has been downtrending at 2 and 6-hour No acute ST-T wave changes on EKG Echocardiogram without any focal wall motion abnormalities Discontinue heparin drip, changed to full dose Lovenox subcutaneously to minimize fluid load We will likely benefit from ischemic w/up when optimized On asa 81mg daily continue lisinopril and metoprolol #Fluid overload Patient developing signs of fluid overload today with interval development of pitting edema, facial puffiness. Discontinue IV fluids and switch heparin to Lovenox to minimize fluid load Lasix 20 mg IV x1 #Complains of oropharyngeal dysphagia, difficulty swallowing, states this is new since COVID. May be related to sore throat and pharyngeal edema which would be helped with the steroids. We will additionally ask for a swallow evaluation to make sure patient is not aspirating. #Incidentally noted 2.2 cm cavitary lesion on CT scan, will need outpatient work-up for possible underlying malignancy. Full code Cardiac diet Attestations Medical Necessity Statement*: Needs ongoing treatment for COVID-19, IV remdesivir, IV steroids, antibiotics, anticoagulation Coding Level of Care Code Acute Code for [facility] Fwd Diagnoses COVID-19 U07.1 Hypoxia R09.02 Cavitary lesion of lung J98.4 JO (acute kidney injury) N17.9 Sore throat J02.9 Dehydration E86.0
[2022-12-04 17:10] LABS: Glucose Point of Care 289 mg/dL (70-110)
[2022-12-04] MEDS: remdesivir 100 MG in sodium chloride 0.9% (100 ml) 80 ML IV (17:52)
[2022-12-04] MEDS: enoxaparin 100 mg/mL Syringe 90 MG SUBCUT (18:02)
[2022-12-04] MEDS: cefTRIAXone 1,000 MG in sodium chloride 0.9% (plus) 50 ML 100 MG IV (18:02)
[2022-12-04] MEDS: FUROsemide 10 mg/mL SDV 2mL 20 MG IVP (18:03)
[2022-12-04] MEDS: dexamethasone 4 mg/mL INJ 6 MG IVP (18:04)
[2022-12-04] MEDS: budesonide 0.5 mg/2 mL Neb INHALATION (20:48)
[2022-12-04] MEDS: ipratropium-albuterol 3 mL Neb INHALATION (20:49)
[2022-12-04 20:55] LABS: Glucose Point of Care 357 mg/dL (70-110)
[2022-12-04] MEDS: hyDRALAzine 10 mg Tablet PO (21:34)
[2022-12-05] VITALS (12 sets, daily range): BP systolic 115–135; BP diastolic 62–74; PULSE 57–75; RESP 15–19; TEMP 36.4–36.8; O2SAT 93–98
[2022-12-05] MEDS: acetaminophen 500 mg Tablet PO (00:10)
[2022-12-05 04:22] LABS: Basophils % 0.2 %; Hematocrit 32.5 % (42.0-52.0); Hemoglobin 10.8 g/dL (11.7-16.6); Lymphocytes # 17.5 10^3/uL (0.8-4.8); Lymphocytes % 75.2 %; Mean Corpuscular HGB Conc 33.2 g/dL (30.0-36.0); Mean Corpuscular Hemoglobin 30.2 pg (28.0-34.0); Mean Corpuscular Volume 90.8 fl (80-94); Mean Platelet Volume 12.7 fL (7.4-10.4); Monocytes # 0.5 10^3/uL (0.2-0.9); Neutrophils # 5.15 10^3/uL (1.8-7.7); Neutrophils % 22.2 %; Nucleated Red Blood Cells % 0 %; Platelet Count 139 10^3/cmm (130-400); Red Blood Count 3.58 10^6/uL (4.1-5.3); Red Cell Distribution Width 14.8 % (12.1-15.1); White Blood Count 23.2 10^3/uL (4.0-10.0)
[2022-12-05 04:52] LABS: NT Pro B Type Natriuretic Pept 1224 pg/mL (0-450); Procalcitonin 8.58 ng/mL (0-0.5)
[2022-12-05 05:03] LABS: Alanine Aminotransferase 18 U/L (0-41); Albumin Level 3.1 g/dL (3.5-5.2); Alkaline Phosphatase 44 U/L (40-130); Aspartate Amino Transferase 24 U/L (0-40); Blood Urea Nitrogen 37 mg/dL (8-23); C Reactive Protein 185.2 mg/L (0.0-4.9); Carbon Dioxide 18 mmol/L (22-29); Chloride 99 mmol/L (98-107); Globulin 2.9 g/dL (1.3-4.6); Glucose 361 mg/dL (65-115); Osmolality Calculated 293 mOsm/kg (285-295); Sodium 130 mmol/L (136-145); Total Bilirubin 0.4 mg/dL (0.15-1.2)
[2022-12-05] MEDS: enoxaparin 100 mg/mL Syringe 90 MG SUBCUT ×2 (05:47→18:03)
[2022-12-05] MEDS: benzonatate 100 mg Capsule 200 MG PO ×2 (05:47→21:30)
[2022-12-05 06:46] LABS: Glucose Point of Care 301 mg/dL (70-110)
[2022-12-05] MEDS: budesonide 0.5 mg/2 mL Neb INHALATION ×2 (07:45→19:44)
[2022-12-05] MEDS: ipratropium-albuterol 3 mL Neb INHALATION ×3 (07:45→19:44)
[2022-12-05] MEDS: atorvastatin 40 mg Tablet 80 MG PO (09:46)
[2022-12-05] MEDS: aspirin 81 mg Chew Tablet PO (09:46)
[2022-12-05] MEDS: ascorbic acid 500 mg Tablet PO (09:46)
[2022-12-05] MEDS: allopurinol 100 mg Tablet PO (09:46)
[2022-12-05] MEDS: zinc gluconate 50 mg Tablet PO (09:46)
[2022-12-05] MEDS: sennosides-docusate Tablet 1 TAB PO (09:46)
[2022-12-05] MEDS: insulin lispro 100 unit/1 mL SUBCUT ×3 (09:46→18:01)
[2022-12-05] MEDS: amlodipine 10 mg Tablet PO (09:47)
[2022-12-05] MEDS: hyDRALAzine 10 mg Tablet PO ×3 (09:47→21:31)
[2022-12-05] MEDS: metoprolol succinate ER (24 HR) 100 mg Tablet 50 MG PO (09:48)
[2022-12-05 12:00] LABS: Glucose Point of Care 428 mg/dL (70-110)
[2022-12-05 16:22] LABS: Glucose Point of Care 414 mg/dL (70-110)
--- NOTE | 2022-12-05 16:54 | PM.PN ---
Subjective Subjective: Symptomatically feels like he is improving. He is sitting up in a chair today out of bedside. Cough is improved compared to yesterday. Reports easier swallowing. While in the room talking to him I have turned down his oxygen from 6 L/min to 3 L/min at which she is maintaining saturation around 93 to 94%. He was able to ambulate in the room while maintaining the same saturations. Edema is also additionally improved. Medications: Reviewed: Yes Vitals/I&O/Wt Last Vital Signs Temp 97.8 F 12/05/22 16:00 Pulse 75 12/05/22 16:00 Resp 16 12/05/22 16:00 BP 129/74 12/05/22 16:00 Pulse Ox 95 12/05/22 16:00 O2 Del Method 12/05/22 13:33 O2 Flow Rate 5 12/05/22 13:33 12/05/22 12/05/22 12/05/22 06:59 14:59 22:59 Intake Total 840 / 840 Balance 840 / 840 Weight last 48 hrs Weight 93.621 kg Physical Exam Narrative: General: No acute distress, AO x3 HEENT: PERRLA, pupils bilaterally equal and reactive, pallors not present Chest: Normal vesicular breath sounds, no added sounds, equal good air entry bilaterally CVS: S1-S2 regular, no murmurs, no tachycardia, no gallops, no rubs Abdomen: Soft, nontender, no organomegaly, bowel sounds present Neuro: No focal deficits, no facial deformity, AO x3, power 5/5 in all limbs Extremities: Bilateral lower extremity edema is now resolved Data 12/05/22 04:05 12/05/22 04:05 Micro: Microbiology 12/03/22 23:10 MRSA Culture - Final Nose A&P Assessment and plan (1) COVID-19: (2) Hypoxia: (3) Cavitary lesion of lung: (4) JO (acute kidney injury): (5) Sore throat: (6) Dehydration: Plan # Acute hypoxia related to COVID-19 Turned down to 3 L/min today which she is tolerating, we will continue to monitor closely Remdisivir 200mg iv x 1 followed by 100mg iv daily for 5 days dexamethasone 6mg IV daily duoneb q6h, budesonide q12h empiric CTX Flutter valve/spirometer at bedside trend inflammatory markers including CRP, down from greater than 2 70-1 80 today CTA negative for PE #Elevated troponins, NSTEMI Suspect this is related to NSTEMI versus type II [place] Troponin trend has been downtrending at 2 and 6-hour No acute ST-T wave changes on EKG Echocardiogram without any focal wall motion abnormalities changed to full dose Lovenox subcutaneously to minimize fluid load We will likely benefit from ischemic w/up when optimized, will plan for stress test on Wednesday On asa 81mg daily continue lisinopril and metoprolol #Fluid overload Now improving after discontinuing IV fluids and receiving Lasix yesterday. Breathing is significantly improved. Lasix 20 mg IV x1 additionally today #Complains of oropharyngeal dysphagia, difficulty swallowing, states this is new since COVID. May be related to sore throat and pharyngeal edema which would be helped with the steroids. We will additionally ask for a swallow evaluation to make sure patient is not aspirating. #Incidentally noted 2.2 cm cavitary lesion on CT scan, will need outpatient work-up for possible underlying malignancy. Full code Cardiac diet Attestations Medical Necessity Statement*: Continued attempts at oxygen weaning, trend inflammatory markers, continue IV steroids for treatment of COVID, plan stress test on Wednesday Coding Level of Care Code Acute Code for [facility] Fwd Diagnoses COVID-19 U07.1 Hypoxia R09.02 Cavitary lesion of lung J98.4 JO (acute kidney injury) N17.9 Sore throat J02.9 Dehydration E86.0
[2022-12-05] MEDS: FUROsemide 10 mg/mL SDV 2mL 20 MG IVP (18:00)
[2022-12-05] MEDS: cefTRIAXone 1,000 MG in sodium chloride 0.9% (plus) 50 ML 100 MG IV (18:01)
[2022-12-05] MEDS: dexamethasone 4 mg/mL INJ 6 MG IVP (18:02)
[2022-12-05] MEDS: remdesivir 100 MG in sodium chloride 0.9% (100 ml) 80 ML IV (18:18)
[2022-12-05 22:51] LABS: Glucose Point of Care 396 mg/dL (70-110)
[2022-12-06] VITALS (14 sets, daily range): BP systolic 133–147; BP diastolic 64–75; PULSE 59–75; RESP 16–19; TEMP 36.6–36.7; O2SAT 91–97
[2022-12-06] MEDS: ipratropium-albuterol 3 mL Neb INHALATION ×4 (02:06→19:54)
[2022-12-06 05:22] LABS: Basophils # 0.1 10^3/uL (0.0-0.1); Basophils % 0.2 %; Hematocrit 34.6 % (42.0-52.0); Hemoglobin 11.5 g/dL (11.7-16.6); Lymphocytes # 18.7 10^3/uL (0.8-4.8); Lymphocytes % 73.1 %; Mean Corpuscular HGB Conc 33.2 g/dL (30.0-36.0); Mean Corpuscular Hemoglobin 29.9 pg (28.0-34.0); Mean Corpuscular Volume 89.9 fl (80-94); Mean Platelet Volume 12.6 fL (7.4-10.4); Monocytes # 0.5 10^3/uL (0.2-0.9); Neutrophils # 6.06 10^3/uL (1.8-7.7); Neutrophils % 23.8 %; Nucleated Red Blood Cells % 0 %; Platelet Count 176 10^3/cmm (130-400); Red Blood Count 3.85 10^6/uL (4.1-5.3); Red Cell Distribution Width 14.6 % (12.1-15.1); White Blood Count 25.6 10^3/uL (4.0-10.0)
[2022-12-06 05:45] LABS: Alanine Aminotransferase 26 U/L (0-41); Albumin Level 3.2 g/dL (3.5-5.2); Alkaline Phosphatase 50 U/L (40-130); Anion Gap 19.1 (5-19); Aspartate Amino Transferase 31 U/L (0-40); Blood Urea Nitrogen 32 mg/dL (8-23); C Reactive Protein 95.9 mg/L (0.0-4.9); Calcium 8.3 mg/dL (8.5-10.5); Carbon Dioxide 19 mmol/L (22-29); Chloride 101 mmol/L (98-107); Globulin 3.2 g/dL (1.3-4.6); Glucose 358 mg/dL (65-115); Osmolality Calculated 301 mOsm/kg (285-295); Potassium 4.1 mmol/L (3.5-5.1); Sodium 135 mmol/L (136-145); Total Bilirubin 0.4 mg/dL (0.15-1.2); Total Protein 6.4 g/dL (6.6-8.7)
[2022-12-06] MEDS: enoxaparin 100 mg/mL Syringe 90 MG SUBCUT ×2 (06:02→17:19)
[2022-12-06 06:24] LABS: Glucose Point of Care 325 mg/dL (70-110)
[2022-12-06 07:01] LABS: Slide Review Slide Review Perform
[2022-12-06] MEDS: insulin lispro 100 unit/1 mL SUBCUT ×4 (08:42→21:33)
[2022-12-06] MEDS: amlodipine 10 mg Tablet PO (08:43)
[2022-12-06] MEDS: metoprolol succinate ER (24 HR) 100 mg Tablet 50 MG PO (08:43)
[2022-12-06] MEDS: sennosides-docusate Tablet 1 TAB PO (08:43)
[2022-12-06] MEDS: zinc gluconate 50 mg Tablet PO (08:43)
[2022-12-06] MEDS: aspirin 81 mg Chew Tablet PO (08:43)
[2022-12-06] MEDS: atorvastatin 40 mg Tablet 80 MG PO (08:44)
[2022-12-06] MEDS: allopurinol 100 mg Tablet PO (08:44)
[2022-12-06] MEDS: ascorbic acid 500 mg Tablet PO (08:44)
[2022-12-06] MEDS: hyDRALAzine 10 mg Tablet PO ×3 (08:44→20:49)
[2022-12-06] MEDS: budesonide 0.5 mg/2 mL Neb INHALATION ×2 (09:09→19:54)
--- NOTE | 2022-12-06 09:59 | PC.SOCIAL ---
Imm update Imm updated with patient by phone. Copy of page 2 provided. Patient verbalized understanding. Copy in chart initialed, dated and timed.
[2022-12-06 12:38] LABS: Glucose Point of Care 397 mg/dL (70-110)
--- NOTE | 2022-12-06 16:09 | PM.PN ---
Subjective Subjective: Patient feels much better today. oxygen requirement is down to 1 lpm today. Blood sugar continues to be uncontrolled today. Overnight he had an episode of dyspnea, he felt suffocated , no chest pain, states that symptoms resolved once he turned the heat down. 02 saturation was maintained. Medications: Reviewed: Yes Vitals/I&O/Wt Last Vital Signs Temp 98.0 F 12/06/22 07:58 Pulse 75 12/06/22 13:56 Resp 18 12/06/22 13:56 BP 133/72 12/06/22 12:00 Pulse Ox 93 12/06/22 13:56 O2 Del Method 12/06/22 13:56 O2 Flow Rate 1 12/06/22 13:56 12/06/22 12/06/22 12/06/22 06:59 14:59 22:59 Intake Total 480 / 2270 480 / 480 Balance 480 / 2270 480 / 480 Physical Exam Narrative: General: No acute distress, AO x3 HEENT: PERRLA, pupils bilaterally equal and reactive, pallors not present Chest: Normal vesicular breath sounds, no added sounds, equal good air entry bilaterally CVS: S1-S2 regular, no murmurs, no tachycardia, no gallops, no rubs Abdomen: Soft, nontender, no organomegaly, bowel sounds present Neuro: No focal deficits, no facial deformity, AO x3, power 5/5 in all limbs Extremities: Bilateral lower extremity edema is now resolved Data 12/06/22 04:48 12/06/22 04:48 A&P Assessment and plan (1) COVID-19: (2) Hypoxia: (3) Cavitary lesion of lung: (4) JO (acute kidney injury): (5) Sore throat: (6) Dehydration: Plan # Acute hypoxia related to COVID-19 Tested positive on home test on 11/30/22 , day 7 since positive test Turned down to 1 L/min today which he is tolerating, we will continue to monitor closely Remdisivir 200mg iv x 1 followed by 100mg iv daily for 5 days; day 4 today dexamethasone 6mg IV daily---> taper down to 3mg today given uncontrolled blood sugar duoneb q6h, budesonide q12h empiric CTX 1g iv q24h given consolidation on CT chest Flutter valve/spirometer at bedside trend inflammatory markers including CRP, down from greater than 2 70 ---> 1 80 ---> 90 today CTA negative for PE #Elevated troponins, NSTEMI Suspect this is related to NSTEMI versus type II [place] Troponin trend downtrending at 2 and 6-hour No acute ST-T wave changes on EKG Echocardiogram without any focal wall motion abnormalities no chest pain however overnight had one episode of suffocation no new changes on EKG will plan for stress test on Wednesday On asa 81mg daily continue lisinopril and metoprolol #Fluid overload Now resolved after lasix 20mg iv over 2 days # Dm with uncotnrolled blood sugar. Increase to high dose sliding scale. Add Lantus 10mg at night. Check Hba1c #Complains of oropharyngeal dysphagia, difficulty swallowing, states this is new since COVID. May be related to sore throat and pharyngeal edema which would be helped with the steroids. this is now much improved #Incidentally noted 2.2 cm cavitary lesion on CT scan, will need outpatient work-up for possible underlying malignancy. Full code Cardiac diet Attestations Medical Necessity Statement*: continued care for covid 19, slowly improving now, planned stress test Coding Level of Care Code Acute Code for [facility] Fwd Diagnoses COVID-19 U07.1 Hypoxia R09.02 Cavitary lesion of lung J98.4 JO (acute kidney injury) N17.9 Sore throat J02.9 Dehydration E86.0
[2022-12-06 16:29] LABS: SARS Covid-2 Antigen negative (Negative)
[2022-12-06 16:53] LABS: Glucose Point of Care 447 mg/dL (70-110)
[2022-12-06] MEDS: cefTRIAXone 1,000 MG in sodium chloride 0.9% (plus) 50 ML 100 MG IV (17:13)
[2022-12-06] MEDS: dexamethasone 4 mg/mL INJ 3 MG IVP (17:15)
[2022-12-06] MEDS: remdesivir 100 MG in sodium chloride 0.9% (100 ml) 80 ML IV (18:09)
[2022-12-06] MEDS: benzonatate 100 mg Capsule 200 MG PO (20:49)
[2022-12-06 21:01] LABS: Glucose Point of Care 362 mg/dL (70-110)
[2022-12-06] MEDS: insulin glargine 100 units/1 mL 10 UNIT SUBCUT (21:34)
[2022-12-07] VITALS (8 sets, daily range): BP systolic 155–169; BP diastolic 74–83; PULSE 57–76; RESP 17–18; TEMP 36.3–36.6; O2SAT 90–94
[2022-12-07 02:27] LABS: Estmated Average Glucose 197; Hemoglobin A1C 8.5 % (4.0-6.0)
[2022-12-07] MEDS: enoxaparin 100 mg/mL Syringe 90 MG SUBCUT (05:45)
[2022-12-07 06:03] LABS: Basophils # 0.1 10^3/uL (0.0-0.1); Basophils % 0.2 %; Hematocrit 37.9 % (42.0-52.0); Hemoglobin 12.4 g/dL (11.7-16.6); Lymphocytes # 17.4 10^3/uL (0.8-4.8); Lymphocytes % 69.8 %; Mean Corpuscular HGB Conc 32.7 g/dL (30.0-36.0); Mean Corpuscular Hemoglobin 30.5 pg (28.0-34.0); Mean Corpuscular Volume 93.1 fl (80-94); Mean Platelet Volume 12.1 fL (7.4-10.4); Monocytes # 0.7 10^3/uL (0.2-0.9); Monocytes % 2.6 %; Neutrophils # 6.32 10^3/uL (1.8-7.7); Neutrophils % 25.4 %; Nucleated Red Blood Cells % 0.2 %; Platelet Count 199 10^3/cmm (130-400); Red Blood Count 4.07 10^6/uL (4.1-5.3); Red Cell Distribution Width 15.4 % (12.1-15.1); White Blood Count 24.9 10^3/uL (4.0-10.0)
[2022-12-07 06:12] LABS: Glucose Point of Care 259 mg/dL (70-110)
[2022-12-07] MEDS: budesonide 0.5 mg/2 mL Neb INHALATION (07:53)
[2022-12-07] MEDS: ipratropium-albuterol 3 mL Neb INHALATION (07:53)
--- NOTE | 2022-12-07 08:29 | P.DS_ITS ---
Discharge Providers Date of Admission: 12/03/22 18:34 Date of Discharge: December 07, 2022 Attending Provider at Admission: Kelsi Rodriguez MD Attending Provider at Discharge: Juan M Borden MD Primary Care Provider: Adriel Barboza DO Diagnoses at Discharge Discharge Diagnosis (1) COVID-19: Status: Acute (2) Hypoxia: Status: Acute (3) Cavitary lesion of lung: Status: Acute (4) JO (acute kidney injury): Status: Acute (5) Sore throat: Status: Acute (6) Dehydration: Status: Acute (7) Type 2 CA (myocardial infarction): Status: Acute Reason for Visit Reason for Visit: BC sent, Covid + Brief History: Gianni Page is a 77 year old male who carries history of HOCM, hypertension, prediabetes, COPD presented to the hospital for worsening of shortness of breath and hypoxia.? He was diagnosed with COVID-19 on 11/30 by his PCP.? His symptoms started a few days before his diagnosis, he has not noticed any fever but endorsing shortness of breath, productive cough yellow sputum production, no active chest pain, diarrhea or vomiting.? He is endorsing sore throat which is making him very uncomfortable to the point he is not able to eat anything freely. He had a new 02 requirement of 6-7 lpm on admission. Treatment course as below: Hospital Course Hospital Course # Acute hypoxia related to COVID-19 Tested positive on home test on 11/30/22 , day 8 since positive test at discharge 02 requirement improved from 6lpm to 1 L/min during course of admission. Home 02 eval obtained prior to discharge, Received Remdisivir 200mg iv x 1 followed by 100mg iv daily for 5 days dexamethasone 6mg IV daily---> tapered down to 3mg today given uncontrolled blood sugar---> discharge on PRednisone 20mg x 5 days duoneb q6h, budesonide q12h schdeuled nebulization empiric CTX 1g iv q24h given consolidation on CT chest---> transitioned to po augmentin at discharge Flutter valve/spirometer at bedside CRP, down from greater than 2 70 ---> 1 80 ---> 90 CTA negative for PE #Elevated troponins Suspect this is related type II CA vs possible NSTEMI Troponin trend?downtrending at 2 and 6-hour No acute ST-T wave changes on EKG Echocardiogram without any focal wall motion abnormalities no chest pain during course of admission Patient was planned for a stress test today however as an oversight he consumed caffeine this morning. Stress test has therefore been canceled. We will attempt to obtain the stress test as an outpatient, hopefully within the next week. Patient is instructed to return to the ER immediately in case of any chest pain, dyspnea that is worsened, reduced exercise capacity On asa 81mg daily continue lisinopril and metoprolol #Fluid overload Now resolved after lasix 20mg iv over 2 days he is currently euvolemic # Dm with uncotnrolled blood sugar. HbA1c at 8.5. Patient had uncontrolled fingersticks during admission, likely as a result of high-dose steroids. He has been tapered down to 20 mg at discharge over the next 5 days. He can continue his home doses of metformin. Follow-up with primary care provider to ensure better glycemic control. #Complains of oropharyngeal dysphagia, difficulty swallowing, states this is new since COVID.? May be related to sore throat and pharyngeal edema which would be helped with the steroids. this is now much improved. #Incidentally noted 2.2 cm cavitary lesion on CT scan, will need outpatient work-up for possible underlying malignancy. Follow up with pulmonology. Physical Exam Narrative: General: No acute distress, AO x3 HEENT: PERRLA, pupils bilaterally equal and reactive, pallors not present Chest: Normal vesicular breath sounds, no added sounds, equal good air entry bilaterally CVS: S1-S2 regular, no murmurs, no tachycardia, no gallops, no rubs Abdomen: Soft, nontender, no organomegaly, bowel sounds present Neuro: No focal deficits, no facial deformity, AO x3, power 5/5 in all limbs Discharge Data Studies Completed and Pending Completed Studies During Hospitalization Category Date Time Status CT angio chest PE protcl [id number] Stat Cat Scan 12/03/22 15:31 Completed CV. echo wo/w contrast [id number] Routine Ultrasound 12/03/22 19:39 Completed Pending at discharge Category Date Time Status Cardiac Stress Test MIBI [Sestamibi Stress Test Request Exams 12/06/22 16:08 Ordered ] Routine C Reactive Protein Routine Lab 12/07/22 06:47 Ordered Complete Blood Count w/Auto AM LABS Lab 12/08/22 04:00 Ordered Comprehensive Metabolic Panel Routine Lab 12/07/22 06:47 Ordered Radiology Impressions Chest CTA 12/03/22 15:31 IMPRESSION: 1. Negative for pulmonary embolus. 2. Right upper lobe 22 mm thick walled solitary cavitary lesion, concerning for malignancy, consider further evaluation with tissue sampling. 3. Coronary artery atherosclerotic calcifications. 4. Cardiomegaly. 5. Bilateral dependent airspace infiltrates. 6. Right kidney cyst, negative for follow up. 7. Hepatic steatosis. 8. Scattered prominent subcentimeter short axis nonspecific mediastinal lymph nodes. COMMENTS: Consistent with the [employer]'s Incidental Findings Committee white paper (J Am Marcell Radiol 2018): Any incidental renal lesion less than 1 cm or classified as too small to characterize, or any incidental cystic renal lesion characterized as simple-appearing, is likely benign. No follow-up imaging is recommended for these lesions per consensus recommendations based on imaging criteria. Laboratory Results WBC 24.9 10^3/uL (4.0-10.0) H 12/07/22 05:37 RBC 4.07 10^6/uL (4.1-5.3) L 12/07/22 05:37 Hgb 12.4 g/dL (11.7-16.6) 12/07/22 05:37 Hct 37.9 % (42.0-52.0) L 12/07/22 05:37 MCV 93.1 fl (80-94) 12/07/22 05:37 MCH 30.5 pg (28.0-34.0) 12/07/22 05:37 MCHC 32.7 g/dL (30.0-36.0) 12/07/22 05:37 RDW 15.4 % (12.1-15.1) H 12/07/22 05:37 Plt Count 199 10^3/cmm (130-400) 12/07/22 05:37 MPV 12.1 fL (7.4-10.4) H 12/07/22 05:37 Neut % (Auto) 25.4 % 12/07/22 05:37 Lymph % (Auto) 69.8 % 12/07/22 05:37 [place] % (Auto) 2.6 % 12/07/22 05:37 Eos % (Auto) 0.0 % 12/07/22 05:37 Baso % (Auto) 0.2 % 12/07/22 05:37 Neut # (Auto) 6.32 10^3/uL (1.8-7.7) 12/07/22 05:37 Lymph # (Auto) 17.4 10^3/uL (0.8-4.8) H 12/07/22 05:37 [place] # (Auto) 0.7 10^3/uL (0.2-0.9) 12/07/22 05:37 Eos # (Auto) 0.0 10^3/uL (0.0-0.8) 12/07/22 05:37 Baso # (Auto) 0.1 10^3/uL (0.0-0.1) 12/07/22 05:37 Nucleated RBC % (auto) 0.2 % 12/07/22 05:37 Total Counted 100 (0-100) 12/04/22 05:04 Atypical Lymphs % 0.0 % (0-5) 12/04/22 05:04 Absolute Neutrophils 5.9 10^3/cmm (1.4-6.5) 12/04/22 05:04 Segmented Neutrophils 24 % 12/04/22 05:04 Abs Segm Neuts (Man) 5.9 10/cmm (1.6-7.1) 12/04/22 05:04 Band Neutrophils 0.0 % 12/04/22 05:04 Abs Band Neuts (Man) 0.0 10^3/cmm (0.0-1.2) 12/04/22 05:04 Absolute Lymphocytes 18.1 10^3/cmm (1.2-3.4) H 12/04/22 05:04 Lymphocytes (Manual) 74 % 12/04/22 05:04 Monocytes (Manual) 2.0 % 12/04/22 05:04 Absolute Monocytes 0.5 10^3/cmm (0.1-0.6) 12/04/22 05:04 Eosinophils (Manual) 0 % 12/04/22 05:04 Absolute Eosinophils 0.0 10^3/cmm (0.0-0.7) 12/04/22 05:04 Basophils (Manual) 0.0 % 12/04/22 05:04 Absolute Basophils 0.0 10^3/cmm (0.0-0.2) 12/04/22 05:04 Nucleated RBCs # 0.0 /100WBC 12/07/22 05:37 Platelet Estimate Decreased (Normal) 12/04/22 05:04 [place] Cells Trace 12/04/22 05:04 PT 16.40 SECONDS (12.1-14.9) H 12/04/22 05:04 INR 1.28 (0.8-1.2) H 12/04/22 05:04 APTT 57.8 SECONDS (23.9-36.7) H 12/04/22 12:38 Fibrinogen 903 mg/dL (174-498) H 12/04/22 05:04 Fibrin Degrad Products Pos, >=40 ug/mL (NEG) H 12/04/22 05:04 D-Dimer 2.26 ug/mIFEU (0-0.59) H 12/04/22 05:04 Specimen Type Arterial 12/04/22 04:36 Sample Site Radial, left 12/04/22 04:36 ABG pH 7.35 (7.35-7.45) 12/04/22 04:36 ABG pCO2 34.1 mmHg (35-45) L 12/04/22 04:36 ABG pO2 70.9 mmHg (80.0-100.0) L 12/04/22 04:36 ABG HCO3 18.8 mmol/L (22-26) L 12/04/22 04:36 ABG Base Excess -6.1 mmol/L (-2.0-2.0) L 12/04/22 04:36 Russ Test Pos 12/04/22 04:36 Hematocrit 36.1 % (42-52) L 12/04/22 04:36 O2 Delivery Device Bipap 12/04/22 04:36 FiO2 21.0 % 12/04/22 04:36 CPAP 10.0 cmH20 12/04/22 04:36 [employer]as[employer]er [employer] [id number] 12/04/22 04:36 Sodium Cancelled 12/07/22 05:37 Potassium Cancelled 12/07/22 05:37 Chloride Cancelled 12/07/22 05:37 Carbon Dioxide Cancelled 12/07/22 05:37 Anion Gap Cancelled 12/07/22 05:37 BUN Cancelled 12/07/22 05:37 Creatinine Cancelled 12/07/22 05:37 GFR Calculation Cancelled 12/07/22 05:37 Glucose Cancelled 12/07/22 05:37 POC Glucose 259 mg/dL (70-110) H 12/07/22 06:09 Estimat Average Glucose 197 12/06/22 04:48 Hemoglobin A1c 8.5 % (4.0-6.0) H 12/06/22 04:48 Calculated Osmolality Cancelled 12/07/22 05:37 Calcium Cancelled 12/07/22 05:37 Phosphorus 3.0 mg/dL (2.5-4.5) 12/04/22 05:04 Magnesium 2.0 mg/dL (1.7-2.3) 12/04/22 05:04 Total Bilirubin Cancelled 12/07/22 05:37 AST Cancelled 12/07/22 05:37 ALT Cancelled 12/07/22 05:37 Alkaline Phosphatase Cancelled 12/07/22 05:37 Lactate Dehydrogenase 187 U/L (135-225) 12/03/22 20:25 Troponin T Baseline 203 ng/L (0-15) H* 12/03/22 15:25 Troponin T 120 Minute 145.6 ng/L (0-15) H 12/03/22 17:27 Delta Troponin T -57.4 ABS# (0-10) L 12/03/22 17:27 Troponin T Hi Sens 6Hr 130.9 ng/L (0-15) H 12/03/22 20:25 Troponin T Hi Sens 6Hr Delta -72.1 ng/L (0-12) L 12/03/22 20:25 C-Reactive Protein Cancelled 12/07/22 05:37 NT-Pro-B Natriuret Pep 1224 pg/mL (0-450) H 12/05/22 04:05 Total Protein Cancelled 12/07/22 05:37 Albumin Cancelled 12/07/22 05:37 Globulin Cancelled 12/07/22 05:37 Procalcitonin 8.58 ng/mL (0-0.5) H 12/05/22 04:05 Coronavirus 229E (PCR) Not detected (NOT DETECT) 12/03/22 18:20 Influenza Type A Ag negative (Negative) 12/03/22 15:58 Influenza Type B Ag negative (Negative) 12/03/22 15:58 SARS-CoV-2 (PCR) Detected (NOT DETECT) A 12/03/22 18:20 SARS-CoV-2 Ag (Rapid) negative (Negative) 12/06/22 15:09 Vitals Last Vital Signs Temp 97.4 F L 12/07/22 08:00 Pulse 66 12/07/22 08:00 Resp 17 12/07/22 08:00 BP 155/83 12/07/22 08:00 Pulse Ox 90 12/07/22 08:00 O2 Del Method 12/07/22 08:00 O2 Flow Rate 1 12/07/22 04:00 Discharge Plan Discharge Patient Disposition: Home Condition: Stable Prescriptions: New benzonatate 100 mg Capsule 200 mg PO Q6H PRN (Reason: Cough) 10 Days Qty: 30 0RF prednisone 20 mg tablet 20 mg PO DAILY 5 Days Qty: 10 0RF amoxicillin-pot clavulanate 875-125 mg tablet 1 tab PO BID 5 Days Qty: 10 0RF Advair Diskus 500-50 mcg/dose blister with device 1 inh inhalation BID 30 Days Qty: 60 0RF Spiriva with HandiHaler 18 mcg capsule, w/inhalation device 1 cap inhalation DAILY 14 Days Qty: 14 0RF Rx Instructions: puncture 1 cap using device; one dose = 2 inhalations Continued metoprolol succinate 100 mg tablet extended release 24 hr 50 mg PO DAILY metformin 850 mg tablet 850 mg PO BID allopurinol 100 mg tablet 100 mg PO DAILY amlodipine 10 mg tablet 10 mg PO DAILY aspirin 81 mg Tablet,Chewable 81 mg PO DAILY lisinopril 40 mg tablet 40 mg PO DAILY rosuvastatin 20 mg tablet 20 mg PO DAILY Discontinued Paxlovid (EUA) 300 mg (150 mg x 2)-100 mg tablets,dose pack 1 ea PO . DIRECTED Discharge Orders: Discharge Order (Routine); Ordered 12/07/22 Ordered By: Marianela Martinez Other Ambulatory Orders: Sestamibi Stress Test Request (Routine) Timeframe: 1 Week Facility: [facility] - Location: Card[facility] Diagnostic Laboratory Ordered By: Marianela Martinez Referrals: Beltran Sauceda MD [Physician] - 2 weeks (cavitary lung lesion suspicious for malignancy ) Adriel Barboza DO [Primary Care Provider] - 1 week (follow up hospital discharge after covid 19, uncontrolled blood sugar) Hanna Campo FNP [Nurse Practitioner] - 2 weeks (reveiw of stress test results ) Discharge Diet: Cardiac and Diabetic Discharge Activity: Resume usual activity Patient Instructions: Opioid Safety Discharge Attestations Time Spent in Discharge Care*: greater than 30 min Specific Discharge Activities: educating patient, educating and/or supporting family/caregiver, discussing with pcp/other providers, discussing with case checker/social workers/dc planners, documenting/other paperwork and evaluating patient/reviewing data Quality Metrics Clinical Quality Measures [ No reported AMI, CVA or VTE this stay] Coding Level of Care Code Acute Code for Chg Fwd Diagnoses COVID-19 U07.1 Hypoxia R09.02 Cavitary lesion of lung J98.4 JO (acute kidney injury) N17.9 Sore throat J02.9 Dehydration E86.0 Type 2 CA (myocardial infarction) I21.A1
[2022-12-07] MEDS: aspirin 81 mg Chew Tablet PO (09:57)
[2022-12-07] MEDS: ascorbic acid 500 mg Tablet PO (09:57)
[2022-12-07] MEDS: amlodipine 10 mg Tablet PO (09:57)
[2022-12-07] MEDS: allopurinol 100 mg Tablet PO (09:57)
[2022-12-07] MEDS: insulin lispro 100 unit/1 mL SUBCUT (09:57)
[2022-12-07] MEDS: metoprolol succinate ER (24 HR) 100 mg Tablet 50 MG PO (09:58)
[2022-12-07] MEDS: zinc gluconate 50 mg Tablet PO (09:58)
[2022-12-07] MEDS: hyDRALAzine 10 mg Tablet PO (09:58)
[2022-12-07] MEDS: sennosides-docusate Tablet 1 TAB PO (09:58)
[2022-12-07] MEDS: atorvastatin 40 mg Tablet 80 MG PO (09:58)
== END 2022-12-07 13:30 | disposition home or self-care (01) | DRG 177 ==
LOC: ER 18:34 → MEDSURG 18:34
PROVIDERS: Internal Medicine; Student in an Organized Health Care Education/Training Program; Admitting Provider Internal Medicine; Emergency Provider Emergency Medicine; PCP Internal Medicine; Visit Provider Student in an Organized Health Care Education/Training Program
DX: U07.1 COVID-19 (principal); I21.A1 Myocardial infarction type 2; I42.1 Obstructive hypertrophic cardiomyopathy; C91.10 Chronic lymphocytic leukemia of B-cell type not having achieved remission; N17.9 Acute kidney failure, unspecified; I10 Essential (primary) hypertension; E11.65 Type 2 diabetes mellitus with hyperglycemia; J44.9 Chronic obstructive pulmonary disease, unspecified; R13.12 Dysphagia, oropharyngeal phase; Z79.84 Long term (current) use of oral hypoglycemic drugs; Z79.82 Long term (current) use of aspirin; R91.8 Other nonspecific abnormal finding of lung field; Z87.891 Personal history of nicotine dependence; H91.90 Unspecified hearing loss, unspecified ear; E87.70 Fluid overload, unspecified; E86.0 Dehydration
CPT/HCPCS: 36415; 36416; 36600; 71275; 80048; 80053; 82803; 82962; 83036; 83615; 83735; 83880; 84100; 84145; 84484; 85007; 85025; 85362; 85378; 85384; 85610; 85730; 86140; 87426; 87635; 87641; 87804; 92523; 92610; 93005; 93306; 94640; 94660; 94664; 94760; 96372; 96374; 99285; C8929; J0248; J0696; J1100; J1644; J1650; J1815; J1940; J7030; J7626; J8540; Q9956; Q9967

== ENCOUNTER 2022-12-09 07:12 | Outpatient (CLI) | payer MEDICARE, SELFPAY ==
--- NOTE | 2022-12-09 | ECG_ITS ---
[facility] Test Date: 2022-12-09 Pat Name: Gianni Page Department: Room: Gender: Male Director Of Diversity And Inclusion: Alicja Guadarrama : 1945 Requested By: Marianela Martinez Order Number: [id number] Familia MD: Lolis Corea M.D. Interpretive Statements NAME OF STUDY: LEXISCAN SESTAMIBI STRESS TEST INDICATION: Chest Pain PROCEDURE: At the baseline, the EKG revealed normal sinus rhythm with a diffuse nonspecific ST-T changes. The baseline heart was 68 bpm with a blood pressue of 109/65 mm of Hg Lexiscan was infused over a period of 20 seconds. A total of 0.4 milligrams of Lexiscan was infused. The stress phase was continued for a total of 5 minutes. Heart rate at the end of the stress phase was 74 bpm with a blood pressure 97/58 mm of Hg. The EKG at the peak infusion revealed no significant changes. Sestamibi was injected 20 seconds after the Lexiscan infusion. Heart rate at the end of the recovery phase was 75 bpm with a blood pressure of 98/56 mm of Hg. CONCLUSION: 1. No significant EKG changes with the LexiScan infusion 2. No LexiScan induced chest pain or cardiac arrhythmia 3. Normal blood pressure and heart rate response 4. Sestamibi/sestamibi perfusion scan pending; see separate report. Electronically Signed On 12-13-2022 23:35:29 CDT by Lolis Corea M.D. [email or web address]
[2022-12-09 07:30] VITALS: BMI 29.6
--- NOTE | 2022-12-09 09:07 | NMCV_ITS ---
NM rama perf SPECT r/s* [id number] Camilo, Asa Age: 77 Gender: M : 1945 Exam Date: 12/09/2022 09:07 Ordering Phys: Marianela Martinez MD Technologist: ALYSSA Nagel Exam Location: [facility] Indications: MYOCARDIAL INFARCTION STRESS TEST Please see separate stress test report in [facility] for full findings IMAGE PROTOCOL Rest/Stress 1 Lexiscan Day Radiopharmaceutical Dose (mCi) Administration Site Administered by Rest: Tc-99m 10.8 IV ALYSSA De Jesus Sestamibi Stress:Tc-99m 32.5 IV ALYSSA De Jesus Sestamibi Rest: 09-Dec-2022 60 Discovery 630 Stress: 09-Dec-2022 30 Discovery 630 0.4mg Lexiscan. Images obtained in supine and prone position. SPECT RESULTS Technical Quality: Excellent Raw Data Analysis: Normal Image Corrections: No attenuation or motion correction applied Summed Stress Score: 9 Summed Rest Score: 5 Summed Difference Score: 4 PERFUSION FINDINGS Moderate area of moderately decreased tracer uptake was noted in the basal and mid inferior, inferolateral and apical lateral regions. Some reversibility was noted in these regions at rest. FUNCTIONAL RESULTS (calculated via Gated SPECT) Stress Image LV EF (%): 77 Stress EDV (mL):69 TID: 1 Stress ESV (mL):16 FUNCTIONAL FINDINGS: Segmental wall motion analysis revealing no gross wall motion abnormalities IMPRESSIONS 1. MPI revealed moderate area of moderately decreased tracer uptake in the inferior, inferolateral and apical lateral region with some reversibility, suggesting myocardial scarring in the distribution of the right coronary artery and circumflex artery with some areas of rajendra-infarction ischemia. 2. Normal LV ejection fraction of 77% 3. LV wall motion analysis revealing no gross wall motion abnormalities. 4. Normal LV volume No similar previous studies are available for comparison revised copy of the results from 12/09/2022 Dr Lolis Corea MD [facility] (Electronically Signed) Final Date: 09 December 2022 13:06 Amended: 09 December 2022 13:09 C
[2022-12-09] MEDS: regadenoson 0.4 Mg/5 ml Syringe IVP (09:40)
[2022-12-09 09:55] VITALS: BP 92/58; PULSE 94
== END 2022-12-09 07:13 | disposition home or self-care (01) ==
PROVIDERS: PCP Internal Medicine; Visit Provider Student in an Organized Health Care Education/Training Program
DX: I21.9 Acute myocardial infarction, unspecified (principal); R07.9 Chest pain, unspecified
CPT/HCPCS: 36415; 78452; 93017; 96374; A9500; J2785

== ENCOUNTER → 2023-01-12 14:47 | Outpatient (BNVA) | payer MEDICARE, SELFPAY | PROVIDERS: PCP Internal Medicine; Visit Provider Internal Medicine Pulmonary Disease | DX: J98.4 Other disorders of lung (principal); I21.4 Non-ST elevation (NSTEMI) myocardial infarction; F17.200 Nicotine dependence, unspecified, uncomplicated; R06.09 Other forms of dyspnea; Z86.16 Personal history of COVID-19 | CPT/HCPCS: 99204 ==

== ENCOUNTER 2023-01-16 10:29 | Outpatient (CLI) | payer MEDICARE, SELFPAY ==
--- NOTE | 2023-01-16 11:00 | CT_ITS ---
WS: [id number] CT chest wo con [id number] HISTORY: Check for resolution of lesion TECHNIQUE: Axial imaging performed through the thorax. Coronal and sagittal reformats are submitted. All CT scans at [facility] use at least one of these dose optimization techniques: automated exposure control; mA and/or kV adjustment per patient size (includes targeted exams where dose is mat ched to clinical indication); or iterative reconstruction. CONTRAST: None DLP: 370.91 mGy.cm COMPARISON: 12/03/2022, 11/05/2017 Lungs and central airway: Thick walled cavitary lesion RIGHT upper lobe is reidentified measuring 2.4 x 1.9 cm. Spiculated margins. Asymmetric soft tissue thickening is greatest along the inferior remington n measuring 0.8 cm. There is a ocean transportation intermediary stable pleural nodule measuring 5 mm in the RIGHT middle lob e. No change since 11/05/2017. No new mass. No pneumonia. Pleura: Normal. No pleural effusion. Heart and pericardium: Normal size heart. Extensive coronary artery atherosclerosis involving all 3 m ajor coronary arteries. Mediastinum and heriberto: No mediastinum or hilar adenopathy. Vessels: Moderate atherosclerosis aorta. No aneurysm. Normal size pulmonary artery. Chest wall and lower neck: No soft tissue masses. Upper abdomen: Incompletely visualized cystic mass lateral RIGHT kidney measures 4.6 x 6.0 cm. No adr enal mass. Osseous structures: Moderate thoracic spondylosis. No destructive bone lesions identified. CT/CT chest wo con [id number] IMPRESSION: 1. No improvement within the thick-walled cavitary mass RIGHT upper lobe measu ring 2.4 x 1.9 cm. Spiculated margins with asymmetric wall thickening. Highly s uspicious for neoplasm. 2. No mediastinal or hilar adenopathy. 3. Extensive coronary artery atherosclerosis involving all 3 major arteries.
== END 2023-01-16 10:30 | disposition home or self-care (01) ==
PROVIDERS: PCP Internal Medicine; Visit Provider Internal Medicine Pulmonary Disease
DX: J98.4 Other disorders of lung (principal)
CPT/HCPCS: 71250

== ENCOUNTER → 2023-01-27 14:51 | Outpatient (BNVA) | payer MEDICARE, SELFPAY | PROVIDERS: PCP Internal Medicine; Visit Provider Internal Medicine Cardiovascular Disease | DX: R94.39 Abnormal result of other cardiovascular function study (principal); R06.09 Other forms of dyspnea; J98.4 Other disorders of lung; E78.5 Hyperlipidemia, unspecified; Z87.891 Personal history of nicotine dependence; Z79.82 Long term (current) use of aspirin; R06.02 Shortness of breath | CPT/HCPCS: 36415; 80048; 83880; 99204 ==

== ENCOUNTER 2023-01-28 13:40 | Outpatient (CLI) | payer MEDICARE, SELFPAY | END 2023-01-28 13:41 | disposition home or self-care (01) | LOC: RT 13:42 | PROVIDERS: PCP Internal Medicine; Visit Provider Internal Medicine Pulmonary Disease | DX: R06.02 Shortness of breath (principal) | CPT/HCPCS: 94010; 94726; 94729 ==

== ENCOUNTER 2023-01-30 10:50 | Outpatient (CLI) | payer MEDICARE, SELFPAY ==
--- NOTE | 2023-01-30 10:00 | PETR_ITS ---
PROCEDURE INFORMATION: Exam: PET/CT Skull Base to Mid-thigh Exam date and time: 01/30/2023 1:31 PM Age: 77 years old Clinical indication: Abnormal findings; Lung mass noted on recent CT scan; Additional info: Lung lesion, please schedule for Wednesday01/23/23 LABS AND CLINICAL REPORTS: Glucose: 158 mg/dl Treatment strategy for malignancy (PET staging): Initial Staging (PI) TECHNIQUE: Imaging protocol: Following at least four-hour fasting and following the injection of radiopharmaceutical, low dose CT images were obtained. Then, PET images were obtained. Attenuation corrected images were constructed using the CT scan. Fused images of PET and CT were reviewed. The standardized uptake values (SUV) reported below are maximum values within a region of interest, expressed in gm/ml. Exam includes orbital meatal line to mid-thigh. Radiopharmaceutical: 14.25 mCi F-18 FDG (Fluorodeoxyglucose), IV. Time of imaging post radiopharmaceutical administration: 1 hour Injection site: Left antecubital vein COMPARISON: CT chest [facility] [id number] 01/16/2023 FINDINGS: Brain: Visualized brain has normal physiologic uptake. Paranasal sinuses: No abnormal uptake. Mild mucosal thickening inferiorly in the right maxillary sinus with no air-fluid level compatible with chronic sinusitis. Pharynx: No abnormal uptake. Larynx: No abnormal uptake. Lungs, pleura and trachea: 2.4 x 1.9 cm cavitary nodule in the right upper lobe with 1 x 0.9 cm central cavity and maximum wall thickness of 0.8 cm measures 9.9 SUV suggestive of malignancy. Subsegmental atelectases are seen in the lung bases. No pleural effusion. Heart: No abnormal uptake. No cardiomegaly. There is no pericardial effusion. Coronary arteries: Coronary artery calcification is present. Mediastinal space: No abnormal uptake. Diaphragm: There is a small hiatal hernia. Liver: No abnormal uptake. Fatty liver. Gallbladder and bile ducts: No abnormal uptake. No calcified gallstones. There is layering slightly hyperdense material in the gallbladder possibly representing sludge. Pancreas: No abnormal uptake. Spleen: No abnormal uptake. No splenomegaly. Adrenal glands: No abnormal uptake. No nodules. Kidneys and ureters: Normal physiologic uptake. No hydronephrosis. Nonobstructive stone in the lower blaine of each kidney measuring 5 mm on the left side and 3 mm on the right side. 6.5 cm simple cyst exophytic from the upper pole of the right kidney. Stomach and bowel: Increased uptake in the entire length of the colon most prominent in the sigmoid colon with no corresponding CT abnormality is benign. There is no abnormal dilatation of the bowel. Mild diverticulosis of the left and right colon. Reproductive: The prostate is severely enlarged (7.8 x 5.7 x 6.3 cm) with no abnormal uptake. Intraperitoneal space: No abnormal uptake. Minimal amount of free fluid in the pelvis. Vasculature: No abnormal uptake. 3.2 cm nonruptured infrarenal abdominal aortic aneurysm. Calcifications in the aorta, iliac and femoral arteries and visceral branches of the aorta including bilateral renal arteries. That is calcifications in the bifurcation of bilateral common carotid arteries. Lymph nodes: No abnormal uptake. No lymphadenopathy in the head, neck, chest, abdomen, pelvis, and extremities. Bones/joints: Bilateral increased synovial uptake in the shoulders is compatible with benign finding. Degenerative changes in the cervical spine including significant facet hypertrophy in the left C3-C4 facet and the right C4-C5 facet joint. There is metallic screw in the left humeral head suggestive of prior rotator cuff repair surgery. Status post left hip replacement. Soft tissues: No abnormal uptake in the visualized head, neck, chest, abdomen, pelvis, and extremities. PET/PET skulltothi INITIAL [id number] IMPRESSION: 1. 2.4 x 1.9 cm cavitary nodule in the right upper lobe with the highest uptake of 9.9 SUV suggestive of malignancy. No evidence of FDG avid metastatic disease. 2. Benign incidental findings (mild chronic sinusitis in the right maxillary sinus, small hiatal hernia, fatty liver, sludge in the gallbladder, bilateral small renal stones, simple cysts in the right kidney, mild diverticulosis of the left and right colon, severe enlargement of the prostate, minimal amount of free intraperitoneal fluid in the pelvis, diffuse arterial atherosclerosis, 3.2 cm abdominal aortic aneurysm, degenerative changes in the cervical spine and the shoulders, prior repair of the left rotator cuff, for left hip replacement).
== END 2023-01-30 10:51 | disposition home or self-care (01) ==
PROVIDERS: PCP Internal Medicine; Visit Provider Internal Medicine Pulmonary Disease
DX: J98.4 Other disorders of lung (principal); R91.8 Other nonspecific abnormal finding of lung field; R06.09 Other forms of dyspnea; R09.02 Hypoxemia; F17.200 Nicotine dependence, unspecified, uncomplicated; I71.40 Abdominal aortic aneurysm, without rupture, unspecified; K44.9 Diaphragmatic hernia without obstruction or gangrene; K76.0 Fatty (change of) liver, not elsewhere classified; N40.0 Benign prostatic hyperplasia without lower urinary tract symptoms; J32.0 Chronic maxillary sinusitis; N20.0 Calculus of kidney; U09.9 Post COVID-19 condition, unspecified
CPT/HCPCS: 78815; A9552

== ENCOUNTER 2023-02-02 05:52 | Day surgery (SDC) | payer MEDICARE, SELFPAY ==
[2023-01-29 10:36] VITALS: BMI 30.4
[2023-02-02] VITALS (8 sets, daily range): BP systolic 110–131; BP diastolic 44–73; PULSE 61–86; RESP 15–18; TEMP 36.1–36.2; O2SAT 93–100
[2023-02-02] MEDS: sodium chloride 0.9% 1,000 ML 30 ML IV (06:20)
[2023-02-02 06:51] LABS: Basophils # 0.1 10^3/uL (0.0-0.1); Basophils % 0.6 %; Eosinophils # 0.5 10^3/uL (0.0-0.8); Eosinophils % 2.5 %; Hematocrit 35.8 % (42.0-52.0); Hemoglobin 11.5 g/dL (11.7-16.6); Lymphocytes # 14.7 10^3/uL (0.8-4.8); Lymphocytes % 71.4 %; Mean Corpuscular HGB Conc 32.1 g/dL (30.0-36.0); Mean Corpuscular Hemoglobin 29.9 pg (28.0-34.0); Monocytes # 0.9 10^3/uL (0.2-0.9); Monocytes % 4.2 %; Neutrophils # 4.34 10^3/uL (1.8-7.7); Neutrophils % 21.1 %; Nucleated Red Blood Cells % 0 %; Platelet Count 182 10^3/cmm (130-400); Red Blood Count 3.85 10^6/uL (4.1-5.3); Red Cell Distribution Width 14.8 % (12.1-15.1); White Blood Count 20.6 10^3/uL (4.0-10.0)
--- NOTE | 2023-02-02 07:00 | ANES.PREANE2 ---
Pre-Anesthetic Assessment Height/Weight: Height 1.73 m Weight 90.718 kg Temp Pulse Resp BP Pulse Ox O2 Del Method 97.0 F L 61 18 119/62 96 Room Air 02/02/23 06:09 02/02/23 06:09 02/02/23 06:09 02/02/23 06:09 02/02/23 06:09 02/02/23 06:09 Operation Date: 02/02/23 07:00 Proposed Procedures p ION/EBUS,[id number],13920,96335,J98.4(Not Applicable) - Belrtan Sauceda MD s Ebus(Not Applicable) - Beltran Sauceda MD Familial anesthetic complications: Fam hx malignant hyperthermia Was Beta Sara taken within 24 hours: N/A Was Clonidine taken within 24 hours: N/A Last intake: Intake Last Liquid Date 02/01/23 Last Liquid Time 21:00 Last Solid Date 02/01/23 Last Solid Time 21:00 Social Tobacco and No alcohol Exam alert, oriented x 3, clear to auscultation bilaterally and regular rate & rhythm Airway Mallampati: Class IV Dentition: full CV/HEM Hypertension and Myocardial Infarction Metabolic Diabetes Mellitus, Hyperlipidemia and Morbid Obesity Anesthetic Plan ASA status: 3 Anesthesia: General Risk of > 500 ml blood loss (7ml/kg in children): No Medications/Allergies Home Medications Medication Instructions Recorded Confirmed Last Taken Type allopurinol 100 mg tablet 100 mg PO DAILY 12/03/22 01/29/23 02/01/23 History amlodipine 10 mg tablet 10 mg PO DAILY 12/03/22 01/29/23 02/02/23 History aspirin 81 mg chewable tablet 81 mg PO DAILY 12/03/22 01/29/23 01/29/23 History lisinopril 40 mg tablet 40 mg PO DAILY 12/03/22 01/29/23 02/01/23 History metformin 850 mg tablet 850 mg PO BID 12/03/22 01/29/23 02/01/23 History metoprolol succinate 100 mg 50 mg PO DAILY 12/03/22 01/29/23 02/02/23 History tablet,extended release 24 hr rosuvastatin 20 mg tablet 20 mg PO DAILY 12/03/22 01/29/23 02/02/23 History Allergies Allergy/AdvReac Type Severity Reaction Status Date / Time No Known Allergies Allergy Verified 02/02/23 06:18 Current Medications Generic Name Dose Route Start Last Admin Trade Name Freq PRN Reason Stop Dose Admin Sodium Chloride 1,000 mls @ 30 mls/hr 02/02/23 06:00 02/02/23 06:20 Sodium Chloride 0.9% IV 02/03/23 05:59 30 mls/hr .Q24H VIRGEN Administration PFSH Anesthesia Medical History (Updated 01/27/23 @ 20:24 by Lolis Corea MD) HOCM (hypertrophic obstructive cardiomyopathy) Hypertension Prediabetes Surgical History History of hip surgery Family History Other CAD (coronary artery disease) Social History Smoking and tobacco status: former smoker Alcohol intake: current Alcohol intake frequency: few times a week Housing: House Data Anesthesia 02/02/23 06:14 Short CBC 02/02/23 Range/Units 06:14 WBC 20.6 H (4.0-10.0) 10^3/uL Hgb 11.5 L (11.7-16.6) g/dL Hct 35.8 L (42.0-52.0) % MCV 93.0 (80-94) fl Plt Count 182 (130-400) 10^3/cmm Neut % (Auto) 21.1 % Neut # (Auto) 4.34 (1.8-7.7) 10^3/uL Cardiac Studies: Echocardiogram 12/03/22 Sestamibi Stress Test (Cardiology) 12/09/22
--- NOTE | 2023-02-02 07:18 | P.HPUD_ITS ---
Surgery/Procedure H&P Update DATE OF PROCEDURE: February 02, 2023 DATE H&P PERFORMED: 01/12/23 H&P UPDATE INFORMATION: I have reviewed H&P completed within last 30 days, I have examined patient prior to procedure and Changes to prior documentation as noted here CHANGES TO PREVIOUS DOCUMENTATION: Patient had PET/CT on 01/30/2023-reported 2.4 x 1.9 cm cavitary nodule right upper lobe highest uptake 9.9 SUV suggestive of malignancy. No evidence of FDG avid metastatic disease. Cardiology cleared the patient for procedure on 01/27/2023 PREOP DIAGNOSIS: right upper lobe lesion suspicious for malignancy PRIMARY INDICATION FOR PROCEDURE: rule out malignancy PLANNED PROCEDURE: Operation Date: 02/02/23 07:00 Proposed Procedures p ION/EBUS,[id number] ,67421,59018,J98.4(Not Applicable) - Beltran Sauceda MD s Ebus(Not Applicable) - Beltran Sauceda MD
[2023-02-02] MEDS: lidocaine 1% INJ 10 mL (per mL) XX (08:07)
--- NOTE | 2023-02-02 08:26 | P.ANESUD_ITS ---
Pre-Anesthetic Update Pre-Anesthetic Assessment: Date of Surgery/Procedure: 02/02/23 Preop Nelly gnosis: right upper lobe lesion suspicious for malignancy Proposed Procedure: Operation Date: 02/02/23 07:00 Proposed Procedures p ION/EBUS,[id number] ,17626,46708,J98.4(Not Applicable) - Beltran Sauceda MD s Ebus(Not Applicable) - Beltran IrizarryrMD Any changes to Pre-Anesthetic Assessment?: Yes Changes from Pre-Anesthetic Assessment: Patient reports family history of MH. Last Intake: Intake Last Liquid Date 02/01/23 Last Liquid Time 21:00 Last Solid Date 02/01/23 Last Solid Time 21:00 Labs Last 48hrs: Short CBC 02/02/23 Range/Units 06:14 WBC 20.6 H (4.0-10.0) 10^3/ uL Hgb 11.5 L (11.7-16.6) g/dL Hct 35.8 L (42.0-52.0) % MCV 93.0 (80-94) fl Plt Count 182 (130-400) 10^3/c mm Neut % (Auto) 21.1 % Neut # (Auto) 4.34 (1.8-7.7) 10^3/u L Vitals: Temperature 97.0 F L 02/02/23 06:09 Temperature Source Temporal Artery S can 02/02/23 06:09 Pulse Rate 61 02/02/23 06:09 Respiratory Rate 18 02/02/23 06:09 Blood Pressure 119/62 02/02/23 06:09 Blood Pressure Alena n 81 02/02/23 06:09 Pulse Oximetry 96 02/02/23 06:09 Oxygen Delivery Me thod Room Air 02/02/23 06:09 Cardiac Studies: Echocardiogram 12/03/22 Sestamibi Stress Test (Cardiology) 12/09
--- NOTE | 2023-02-02 09:24 | PM.OP ---
Operative Report Date of procedure: February 02, 2023 Pre-op diagnosis: Preop Diagnosis right upper lobe lesion suspicious for malignancy Procedure done: 78298? ? Dx Bronchoscope w/Washings or airway inspection 75341? ? Dx Bronchoscope w/BAL 01541? ? Bronch with computer image guided Navigational Bronchoscopy 10594? ? Bronchoscopy w/Transbronchial lung biopsy(s), single lobe 24534? ? Bronchoscopy w/Transbronchial needle aspiration biopsy(s), tracheal, main stem, and/or lobar bronchus 39706? ? Bronchoscopy w/ therapeutic aspiration of the tracheobronchial tree (clearance of airway secretions, removal of mucus plugs) 16692? ? EBUS Sampling 1 or 2 lymph nodes 11697? ? EBUS Diag or Interven Peripheral lesion (radial EBUS) Surgeon: Beltran Sauceda MD, [facility] Brief History: Mr. Gianni Brennan is a 77-year-old male with past medical history of HOCM, hypertension, prediabetes, COPD recently discharged from hospital for hypoxic respiratory failure secondary to COVID-19 came to pulmonary clinic on 01/12/2023 for incidental cavitary lesion seen on CT chest. Patient tells me that he was a former smoker-smoked 1.5 to 2 pack/day for 50 years. ? There is no radiological evidence of emphysema; there is no evidence of CO2 retention; 12/03/2022 CTA-during COVID-19 hospitalization-found to have incidental 2.2 cm thick-walled cavitary lesion on CTA 12/03/2022, 12/09/2022-myocardial perfusion scan-moderate area of moderately decreased tracer uptake in inferior, inferior lateral and apical lateral region with some reversibility suggesting myocardial scarring. 01/16/2023 follow-up CT chest-no improvement-showed 2.4 x 1.9 cm thick-walled cavitary right upper lobe lesion. 01/30/2023 PET/CT showed 2.4 x 1.9 cm cavitary nodule right upper lobe highest uptake 9.9 SUV suggestive of malignancy.? No evidence of FDG avid metastatic disease. 01/27/2023-cardiology cleared the patient for right upper lobe cavitary mass biopsies-given the patient had abnormal myocardial perfusion scan-he never had any chest pain hence further investigations were deferred at this point 02/02/2023:-Today scheduled for robotic navigational assisted bronchoscopic biopsies of right upper lobe lesion and endobronchial ultrasound surveillance of mediastinal/hilar lymph nodes. Today he denied any shortness of breath, fever, chills, chest pains.? Reported that he is breathing has improved and is slowly getting back his energy. Procedure: 95258? ? Dx Bronchoscope w/Washings or airway inspection 58100? ? Dx Bronchoscope w/BAL 88062? ? Bronch with computer image guided Navigational Bronchoscopy 42295? ? Bronchoscopy w/Transbronchial lung biopsy(s), single lobe 70817? ? Bronchoscopy w/Transbronchial needle aspiration biopsy(s), tracheal, main stem, and/or lobar bronchus 84153? ? Bronchoscopy w/ therapeutic aspiration of the tracheobronchial tree (clearance of airway secretions, removal of mucus plugs) 22682? ? EBUS Sampling 1 or 2 lymph nodes 85168? ? EBUS Diag or Interven Peripheral lesion (radial EBUS) Description of the procedure: The procedure was explained to the patient and the consent was obtained.? The patient was brought to the OR.? Anesthesia: The patient underwent endotracheal intubation for general anesthesia. Local anesthesia: The distal trachea-Suzanne, right and left mainstem bronchi were anesthetized with 1% lidocaine, 3 mL. Following induction of general anesthesia, the flexible bronchoscope was advanced through the? ET tube.? The? lower trachea mucosa appeared normal, no endotracheal lesion was seen.? The suzanne was sharp.? There were some mucus globs in the trachea which were suctioned right away.The suzanne, the right and left mainstem bronchi are anesthetized with 1% lidocaine.? There were some in a systematic manner bilateral bronchial tree was then examined. ? The bronchoscope was advanced into the left mainstem bronchus.? The mucosa appeared normal with no endobronchial lesions.? The left upper lobe, lingula and left lower lobe bronchi were examined up to the third subsegmental level and no abnormalities were identified.? Mucosa appeared normal with no endobronchial lesion, active bleeding or mucous plug.??There were some mucus secretions in all segments-which were suctioned right away.(11709) ?The bronchoscope was then introduced into the right mainstem bronchus.? The right upper lobe, right middle lobe and right lower lobe bronchi were examined up to the third subsegmental level and no abnormalities were identified.There were some mucus secretions in? Right upper, middle and lower lobe-which were suctioned right away.(81490) After initial inspection as well as?airway clearance with flexible bronchoscope(13192),?ION robotic assisted navigational bronchoscope (03917)?was introduced-and?right?upper lobe lesion was accessed.? After?confirming the location with radial EBUS (49476),?under the fluoroscopy guidance? -we were able to obtain biopsies using fine-needle, forceps.? 1 pass with forceps and fine-needle were used for touch prep and sent for rapid onsite evaluation-pathology reported seeing cells suspicious for malignancy on both forceps and biopsy slides.? Targeting the same area, 3 additional passes were made with fine-needle and 3 passes were made with forceps and all the samples were placed in formalin for histopathology examination. Bronchoscope was wedged at the entrance of the posterior segment of? right upper lobe, 10 mL of saline was instilled and returned 6 mL of bronchoalveolar lavage (91644).? The fluid was mixed with blood and specks of tissue. There was some evidence of grade 2 bleeding-cold saline was instilled and after making sure there is no active bleeding, ION robotic assisted navigational bronchoscope was retracted and?introduced Endobronchial ultrasound EBUS(77802). ? With the help of EBUS, identified a lymph node at station 7.??Fine-needle aspiration biopsies? were performed from station 7 (19823).?Rapid onsite evaluation by pathology did not see any malignant cells.? 3 additional passes were made at station 7 and the material was placed in formalin for histopathology review.? There was some evidence of bleeding-cold saline was instilled. ?After making sure there is no active bleeding EBUS was retracted and procedure terminated. ? Samples: Right upper lobe lesion 1.? Total of 4 passes were made?using needle aspiration(12340);?first pass used for touch prep -pathology reported seeing cells suspicious for malignancy; remaining material placed in formalin for histopathology 2.? Targeting the same area 4 passes were?made using forceps (39186); first pass used for touch prep -pathology reported seeing cells suspicious for malignancy; remaining material placed in formalin for histopathology 3.?Bronchoscope was wedged at the entrance of the posterior segment of right upper lobe, 10 mL of saline was instilled and returned 6 mL of bronchoalveolar lavage (08495).? The fluid was mixed with blood and specks of tissue..samples for cell count, cytology, cultures, fungal cultures. EBUS guided biopsies of station 7 lymph node (10342) 1.? Total of 4? passes were made?using needle aspiration(23159) from station 7;?first pass used for touch prep -pathology reported seeing?negative for malignancy;?remaining specimen were placed in formalin for histopathology Complications: None.The patient was extubated and brought to the PACU in stable condition. Postprocedure chest x-ray: No pneumothorax Disposition: Patient can be discharged home in stable condition. ? Pt, and family are aware that I am going to call them? to update final biopsy results once available. Related Problem List Diagnoses (1) Cavitary lesion of lung:
--- NOTE | 2023-02-02 09:36 | XR_ITS ---
WS: [id number] PORTABLE CHEST HISTORY: post ion COMPARISON: 10/23/2017 No pneumothorax post biopsy by bronchoscopy. Lung volumes are decreased. Mass RIGHT upper lobe measures 3.4 x 3.3 cm was targeted for biopsy. No p leural effusion or pneumothorax. Cardiac size: Normal. Mediastinum/Aorta: Mild atherosclerosis aorta. No osseous abnormality seen. XR/XR chest 1V portable [id number] IMPRESSION: 1. No pneumothorax status post RIGHT upper lobe mass biopsied by bronchoscopy. 2. No associated hemorrhage. Discussed with Beltran Sauceda MD at 02/02/2023 10:47 AM.
[2023-02-02 10:03] LABS: Apprearance, Bronch Wash Cloudy (CLEAR)
[2023-02-02 10:04] LABS: Bronch Source Right Upper Lobe; Color, Bronc Wash Slight Pink; PATH Referral Yes
[2023-02-02 12:32] LABS: Total Cells Counted Bronch 35
--- NOTE | 2023-02-02 13:55 | ANE.PACU2 ---
Inpatient post-anesthesia follow up: Airway intact: Yes Vital signs: Temperature 97.0 F Pulse Rate 71 Respiratory Rate 18 Blood Pressure 120/57 Pulse Oximetry 93 Oxygen Delivery Me thod Room Air Oxygen Flow Rate 6 Fraction of Inspir ed Oxygen Hydration adequate: Yes Nausea and vomiting: No Pain level: 1 Mental status: Baseline
== END 2023-02-02 10:40 | disposition home or self-care (01) ==
PROVIDERS: Anesthesiology; PCP Internal Medicine; Visit Provider Internal Medicine Pulmonary Disease
PROC: 0BJ08ZZ Inspection of Tracheobronchial Tree, Via Natural or Artificial Opening Endoscopic (ICD-10-PCS; CPT 31622; principal; 2023-02-02 07:00)
PROC: BB4BZZZ Ultrasonography of Pleura (ICD-10-PCS; 2023-02-02 07:00)
DX: C34.11 Malignant neoplasm of upper lobe, right bronchus or lung (principal); E11.9 Type 2 diabetes mellitus without complications; I10 Essential (primary) hypertension; E78.5 Hyperlipidemia, unspecified; J44.9 Chronic obstructive pulmonary disease, unspecified; I42.1 Obstructive hypertrophic cardiomyopathy; I25.2 Old myocardial infarction; E66.01 Morbid (severe) obesity due to excess calories; Z68.30 Body mass index [BMI] 30.0-30.9, adult; Z79.899 Other long term (current) drug therapy; Z79.82 Long term (current) use of aspirin; Z79.84 Long term (current) use of oral hypoglycemic drugs; Z86.16 Personal history of COVID-19; Z87.891 Personal history of nicotine dependence
CPT/HCPCS: 31624; 31627; 31628; 31629; 31645; 31652; 31654; 71045; 80503; 85025; 87070; 87102; 87205; 87206; 88112; 88305; 88309; 88342; 89050; J1100; J2405; J2704; J2710; J3010; J3490; J7030

== ENCOUNTER 2023-03-22 14:37 | Outpatient (CLI) | payer OTHER, SELFPAY ==
--- NOTE | 2023-03-22 14:47 | XR_ITS ---
WS: [id number] EXAMINATION: XR chest 2V* [id number] REASON FOR EXAM: pleural catheter COMPARISON: No postop chest radiographs for comparison. ORDER DATE: 03/22/2023 3:01 PM FINDINGS: There is a small triangular-shaped peripheral opacity in the medial right lower lobe. This is best s een on the lateral projection extending to the posterior costophrenic angle.. Slightly diminished rig ht lung volume remains. The nodule is no longer present due to partial lobectomy of the right upper l obe. There is a small lucency with a fluid level is present anteriorly on the lateral view with the t ip of the chest tube position posteriorly. The air-fluid level could be in either the lung due to res ection or in the pleural space. The cardiac and mediastinal outlines are unremarkable. There are no s ignificant pleural effusions . Degenerative spine changes with significant kyphosis noted. XR/XR chest 2V* [id number] IMPRESSION: INFILTRATE/ATELECTASIS IN THE MEDIAL RIGHT LOWER LOBE FLUID IN CAVITARY APPEARANCE IN THE LATERAL RIGHT UPPER LOBE NO OTHER SIGNS OF PNEUMOTHORAX MAY REQUIRE CT IMAGING FOR DISTINGUISHING THE SIGNIFICANCE OF THE ABOVE FINDING SUCH A BENIGN POSTSURGICAL CHANGE VERSUS A SMALL BRONCHOPLEURAL FISTULA IF CLINICALLY INDICATED
== END 2023-03-22 14:38 | disposition home or self-care (01) ==
PROVIDERS: PCP Internal Medicine; Visit Provider Internal Medicine Pulmonary Disease
DX: C34.90 Malignant neoplasm of unspecified part of unspecified bronchus or lung (principal); R06.09 Other forms of dyspnea; F17.200 Nicotine dependence, unspecified, uncomplicated; G31.89 Other specified degenerative diseases of nervous system; M40.209 Unspecified kyphosis, site unspecified
CPT/HCPCS: 71046

== ENCOUNTER 2023-03-29 11:13 | Outpatient (CLI) | payer OTHER, SELFPAY ==
--- NOTE | 2023-03-29 11:35 | XR_ITS ---
WS: [id number] Exam: XR chest 2V* [id number] Date/Time of Exam: 03/29/2023 11:37 AM Reason For Exam: post lung surgery Comparison 03/22/2023. Right-sided thoracostomy tube has been removed. The right lung remains fully inflated. Again noted is a possible fluid level in the upper lobe of the right lung. There is plaque atelectasis in the right lower lobe. The left lung remains clear and fully expanded. Normal cardiomediastinal silhouette. Bon y structures are intact. Degenerative changes noted in both shoulders. XR/XR chest 2V* [id number] IMPRESSION: 1. Right-sided thoracostomy tube has been removed since the prior study. No pne umothorax is seen. 2. Possible Fluid level seen in the upper lobe of the right lung essentially un changed since the previous study.
[2023-03-29 11:48] LABS: Basophils # 0.2 10^3/uL (0.0-0.1); Basophils % 0.8 %; Eosinophils # 0.5 10^3/uL (0.0-0.8); Eosinophils % 2.5 %; Hematocrit 32.7 % (42.0-52.0); Hemoglobin 10.1 g/dL (11.7-16.6); Lymphocytes # 12.4 10^3/uL (0.8-4.8); Mean Corpuscular HGB Conc 30.9 g/dL (30.0-36.0); Mean Corpuscular Hemoglobin 28.9 pg (28.0-34.0); Mean Corpuscular Volume 93.4 fl (80-94); Mean Platelet Volume 10.9 fL (7.4-10.4); Monocytes # 0.9 10^3/uL (0.2-0.9); Monocytes % 4.5 %; Neutrophils # 5.44 10^3/uL (1.8-7.7); Nucleated Red Blood Cells % 0 %; Platelet Count 396 10^3/cmm (130-400); Red Cell Distribution Width 14.6 % (12.1-15.1); White Blood Count 19.4 10^3/uL (4.0-10.0)
[2023-03-29 12:01] LABS: Alanine Aminotransferase 32 U/L (0-41); Albumin Level 3.9 g/dL (3.5-5.2); Alkaline Phosphatase 73 U/L (40-130); Anion Gap 18.8 (5-19); Aspartate Amino Transferase 27 U/L (0-40); Blood Urea Nitrogen 32 mg/dL (8-23); Carbon Dioxide 22 mmol/L (22-29); Chloride 102 mmol/L (98-107); Globulin 2.6 g/dL (1.3-4.6); Glucose 125 mg/dL (65-115); Osmolality Calculated 294 mOsm/kg (285-295); Potassium 4.8 mmol/L (3.5-5.1); Sodium 138 mmol/L (136-145); Total Bilirubin 0.2 mg/dL (0.15-1.2); Total Protein 6.5 g/dL (6.6-8.7)
== END 2023-03-29 11:14 | disposition home or self-care (01) ==
PROVIDERS: PCP Internal Medicine; Visit Provider Internal Medicine Pulmonary Disease
DX: C34.90 Malignant neoplasm of unspecified part of unspecified bronchus or lung (principal)
CPT/HCPCS: 36415; 71046; 80053; 85025

== ENCOUNTER → 2023-04-05 09:20 | Outpatient (BNVA) | payer OTHER, SELFPAY | PROVIDERS: PCP Internal Medicine; Visit Provider Internal Medicine Pulmonary Disease | DX: C34.90 Malignant neoplasm of unspecified part of unspecified bronchus or lung (principal) | CPT/HCPCS: 36415; 71046; 80048; 85025 ==

== ENCOUNTER 2023-04-12 08:02 | Oncology outpatient (recurring) (ONCR) | payer OTHER, SELFPAY ==
[2023-04-12 08:12] VITALS: BP 135/74; PULSE 76; RESP 18; TEMP 36.5; O2SAT 96
[2023-04-12 08:31] LABS: Basophils # 0.1 10^3/uL (0.0-0.1); Basophils % 0.6 %; Eosinophils # 0.7 10^3/uL (0.0-0.8); Eosinophils % 3.9 %; Hematocrit 34.2 % (42.0-52.0); Hemoglobin 10.7 g/dL (11.7-16.6); Lymphocytes # 10.5 10^3/uL (0.8-4.8); Mean Corpuscular HGB Conc 31.3 g/dL (30.0-36.0); Mean Corpuscular Hemoglobin 28.7 pg (28.0-34.0); Mean Corpuscular Volume 91.7 fl (80-94); Mean Platelet Volume 11.4 fL (7.4-10.4); Monocytes # 0.9 10^3/uL (0.2-0.9); Neutrophils # 5.28 10^3/uL (1.8-7.7); Neutrophils % 30.3 %; Nucleated Red Blood Cells % 0 %; Platelet Count 198 10^3/cmm (130-400); Red Blood Count 3.73 10^6/uL (4.1-5.3); Red Cell Distribution Width 14.8 % (12.1-15.1); White Blood Count 17.4 10^3/uL (4.0-10.0)
[2023-04-12 08:57] LABS: Alanine Aminotransferase 14 U/L (0-41); Albumin Level 4.2 g/dL (3.5-5.2); Alkaline Phosphatase 65 U/L (40-130); Anion Gap 18.5 (5-19); Aspartate Amino Transferase 17 U/L (0-40); Blood Urea Nitrogen 17 mg/dL (8-23); Calcium 8.9 mg/dL (8.5-10.5); Carbon Dioxide 22 mmol/L (22-29); Chloride 105 mmol/L (98-107); Globulin 2.4 g/dL (1.3-4.6); Glucose 135 mg/dL (65-115); Lactate Dehydrogenase 182 U/L (135-225); Osmolality Calculated 296 mOsm/kg (285-295); Potassium 4.5 mmol/L (3.5-5.1); Sodium 141 mmol/L (136-145); Total Bilirubin 0.5 mg/dL (0.15-1.2); Total Protein 6.6 g/dL (6.6-8.7)
[2023-04-12 09:20] LABS: Slide Review Slide Review Perform
[2023-04-12 11:15] LABS: Ferritin 36 ng/mL (30-400); Iron 67 ug/dL (59-158); Percent Saturation 17.8 % (20-50); Total Iron Binding Capacity 376 mcg/dl; Unsaturated Iron Binding 309 ug/dL (112-347)
[2023-04-12 11:31] LABS: Vitamin B12 433 pg/mL (232-1245)
== END 2023-05-03 23:59 | disposition home or self-care (01) ==
PROVIDERS: PCP Internal Medicine; Visit Provider Internal Medicine Hematology & Oncology
DX: C34.90 Malignant neoplasm of unspecified part of unspecified bronchus or lung (principal)
CPT/HCPCS: 36415; 80053; 82607; 82728; 83540; 83550; 83615; 85025

== ENCOUNTER 2023-05-04 06:00 | Outpatient (RCR) | payer OTHER, SELFPAY | END 2023-06-03 23:59 | disposition home or self-care (01) | LOC: PULRHB 06:00 | PROVIDERS: PCP Internal Medicine; Visit Provider Internal Medicine Pulmonary Disease | DX: U09.9 Post COVID-19 condition, unspecified (principal); R09.02 Hypoxemia; Z98.890 Other specified postprocedural states | CPT/HCPCS: 94625; G0239 ==

== ENCOUNTER 2023-06-25 09:37 | Outpatient (CLI) | payer MEDICARE, SELFPAY ==
--- NOTE | 2023-06-25 10:00 | CT_ITS ---
WS: [id number] CT CHEST TECHNIQUE: Contrast enhanced CT of the chest with coronal and sagittal reformatted images. CLINICAL INFORMATION: Follow up COMPARISON: CT 01/16/2023 DLP: 511.[address] scans at [facility] use at least one of these dose optimization techniques: automated e xposure control; mA and/or kV adjustment per patient size (includes targeted exams where dose is matc hed to clinical indication); or iterative reconstruction. FINDINGS: Interval postoperative changes RIGHT upper lobectomy. Resection of the previously described cavitary mass in the RIGHT upper lobe. No evidence of recurrent disease. Trace RIGHT pleural fluid. Small amou nt of fluid along the RIGHT fissure. Subsegmental atelectasis RIGHT lower lobe. Tiny subpleural nodule RIGHT superior segment lower lobe laterally adjacent to the fissure measuring 6 mm appears stable. LEFT lung is well aerated. Aortic calcification. No mediastinal or hilar lymphad enopathy. No axillary lymphadenopathy. Adrenal glands are normal. RIGHT renal cyst measuring 5.9 cm. Tiny esophageal hiatal hernia. Moderate thoracic kyphosis with ankylosis. IMPRESSION: 1. Interval postoperative changes RIGHT upper lobectomy. No evidence of recurrent disease. 2. 6 mm subpleural nodule RIGHT lower lobe near the fissure unchanged from previous. 3. Trace RIGHT pleural fluid with subsegmental atelectasis RIGHT lower lobe.
[2023-06-25] MEDS: iohexol 350 mg/mL 500 mL Btl (per mL) IV (10:36)
[2023-06-25 13:02] LABS: Blood Urea Nitrogen 18 mg/dL (8-23)
== END 2023-06-25 09:38 | disposition home or self-care (01) ==
PROVIDERS: PCP Internal Medicine; Visit Provider Internal Medicine Pulmonary Disease
DX: C91.10 Chronic lymphocytic leukemia of B-cell type not having achieved remission (principal); Z90.2 Acquired absence of lung [part of]; R91.1 Solitary pulmonary nodule; J98.11 Atelectasis
CPT/HCPCS: 71260; 82565; 84520; Q9967

== ENCOUNTER → 2023-07-05 08:29 | Outpatient (BNVA) | payer MEDICARE, SELFPAY | PROVIDERS: PCP Internal Medicine; Visit Provider Internal Medicine Pulmonary Disease | DX: C34.11 Malignant neoplasm of upper lobe, right bronchus or lung (principal); U09.9 Post COVID-19 condition, unspecified; I21.4 Non-ST elevation (NSTEMI) myocardial infarction; J44.9 Chronic obstructive pulmonary disease, unspecified; Z87.891 Personal history of nicotine dependence; Z90.2 Acquired absence of lung [part of] | CPT/HCPCS: 99214 ==

== ENCOUNTER → 2023-08-18 13:41 | Outpatient (BNVA) | payer MEDICARE, SELFPAY | PROVIDERS: PCP Internal Medicine; Visit Provider Internal Medicine Cardiovascular Disease | DX: I25.10 Atherosclerotic heart disease of native coronary artery without angina pectoris (principal); R06.09 Other forms of dyspnea; E78.5 Hyperlipidemia, unspecified; G47.33 Obstructive sleep apnea (adult) (pediatric); I10 Essential (primary) hypertension; Z87.891 Personal history of nicotine dependence | CPT/HCPCS: 99214 ==

== ENCOUNTER → 2023-08-19 13:47 | Outpatient (BNVA) | payer MEDICARE, SELFPAY | PROVIDERS: PCP Internal Medicine; Visit Provider Dermatology | DX: L57.0 Actinic keratosis (principal); L81.4 Other melanin hyperpigmentation; L57.8 Other skin changes due to chronic exposure to nonionizing radiation; L82.1 Other seborrheic keratosis; D22.62 Melanocytic nevi of left upper limb, including shoulder | CPT/HCPCS: 17000; 99204 ==

== ENCOUNTER 2023-08-25 13:59 | Outpatient (CLI) | payer MEDICARE, SELFPAY ==
--- NOTE | 2023-08-25 14:15 | USCV_ITS ---
Camilo Asa Age: 78 Gender: M : 1945 Exam Date: 08/25/2023 14:17 Ordering Phys: Lolis Corea MD ([email or web address]) Technologist: [place]am [place] [facility] [place]: sob BP: 118 / 64 HR: 60 Rhythm: Sinus Technical Quality: Adequate MEASUREMENTS (Male / Female) Normal Values 2D ECHO LV Diastolic Diameter PLAX 4.0 cm 4.2 - 5.9 / 3.9 - 5.3 cm LV Systolic Diameter PLAX 2.4 cm IVS Diastolic Thickness 1.6 cm 0.6 - 1.0 / 0.6 - 0.9 cm IVS Systolic Thickness 1.6 cm LVPW Diastolic Thickness 1.8 cm 0.6 - 1.0 / 0.6 - 0.9 cm LVPW Systolic Thickness 1.6 cm LVOT Diameter 2.1 cm LV Ejection Fraction 2D Teich 70.2 % LV Ejection Fraction MOD 2C 73.6 % LV Ejection Fraction 2C AL 74.1 % LA Diameter 4.8 cm M-MODE Aortic Annulus Diameter 3.7 cm LA Ao Ratio MM 1.4 MV E Point Septal Separation 0.8 cm DOPPLER AV Peak Velocity 140.0 cm/s LVOT Peak Velocity 107.0 cm/s AV Area Cont Eq vti 2.0 cm squared AV Area Cont Eq pk 2.6 cm squared MV Area PHT 2.7 cm squared Mitral E to A Ratio 0.9 MV E' Velocity 51.5 cm/s Mitral E to MV E' Ratio 14.8 Mitral E to LV E' Lateral Ratio 12.4 Mitral E to LV E' Septal Ratio 18.2 TR Peak Velocity 142.0 cm/s TR Peak Gradient 8.1 mmHg TV Peak E Velocity 89.0 cm/s Right Atrial Pressure 3.0 mmHg Pulmonary Artery Systolic Pressu 11.1 mmHg RV Acceleration Time 0.2 s FINDINGS Left Ventricle Normal left ventricular size and systolic function, EF 67 %. No regional wall motion abnormalities. Grade I/IV diastolic dysfunction (abnormal relaxation filling pattern), normal to mildly elevated filling pressures. Moderate left ventricular hypertrophy. Contrast echo was used Right Ventricle Right Atrium Left Atrium Mitral Valve No gross morphologic. abnormalities were noted. Aortic Valve Thickened aortic valve. Tricuspid Valve Pulmonic Valve Pericardium Aorta IVC CONCLUSIONS (Echo contrast - Optison was used to delineate the endocardium and to estimate the LV ejection fraction) Normal LV size with ejection fraction of around 73%. Moderate concentric left-ventricular hypertrophy. No gross wall motion abnormalities. Thickened aortic valve. The mitral valve appears to no significant morphologic abnormalities. Technically limited study Dr Lolis Corea MD FACC (Electronically Signed) Final Date: 27 August 2023 12:06 S
[2023-08-25] MEDS: perflutren protein-a microsphr 0.22 mg/mL SDV 3 mL IV (14:48)
== END 2023-08-25 14:00 | disposition home or self-care (01) ==
LOC: RAD 13:59
PROVIDERS: PCP Internal Medicine; Visit Provider Internal Medicine Cardiovascular Disease
DX: R06.09 Other forms of dyspnea (principal)
CPT/HCPCS: C8929; Q9956

== ENCOUNTER 2023-09-06 14:00 | Oncology outpatient (recurring) (ONCR) | payer OTHER, SELFPAY ==
[2023-09-06 14:13] VITALS: BP 129/70; PULSE 59; RESP 16; TEMP 36.3; O2SAT 97
[2023-09-06 14:47] LABS: Hematocrit 39.4 % (37-53); Mean Corpuscular HGB Conc 31.7 g/dL (30-55); Mean Corpuscular Hemoglobin 27.5 pg (27-33); Mean Corpuscular Volume 86.6 fl (82-101); Mean Platelet Volume 11.6 fL (7.4-10.4); Platelet Count 193 10^3/cmm (157-399); Red Blood Count 4.55 10^6/uL (3.85-5.65); Red Cell Distribution Width 15.9 % (12.1-15.1); White Blood Count 15.91 10^3/uL (3.29-11.43)
[2023-09-06 15:07] LABS: Alanine Aminotransferase 29 U/L (0-41); Albumin Level 4.5 g/dL (3.5-5.2); Alkaline Phosphatase 58 U/L (40-130); Anion Gap 14.9 (5-19); Aspartate Amino Transferase 28 U/L (0-40); Blood Urea Nitrogen 15 mg/dL (8-23); Carbon Dioxide 23 mmol/L (22-29); Chloride 102 mmol/L (98-107); Globulin 2.8 g/dL (1.3-4.6); Glucose 108 mg/dL (65-115); Lactate Dehydrogenase 201 U/L (135-225); Osmolality Calculated 281 mOsm/kg (285-295); Potassium 4.9 mmol/L (3.5-5.1); Sodium 135 mmol/L (136-145); Total Bilirubin 0.9 mg/dL (0.15-1.2); Total Protein 7.3 g/dL (6.6-8.7)
[2023-09-06 15:08] LABS: Slide Review Slide Review Perform
[2023-09-06 15:12] LABS: Absolute Eosinophils 0.5 10^3/cmm (0.0-0.7); Absolute Segmented Neutrophil 5.9 10/cmm (1.6-7.1); Band Neutrophils Absolute 0.3 10^3/cmm (0.0-1.2); Eosinophils 3 %; Lymphocytes 51 %; Monocytes Absolute 0.8 10^3/cmm (0.1-0.6); Segmented Neutrophils 37 %; Total Cells Counted 100 (0-100)
[2023-09-06 15:13] LABS: Lymphocytes Absolute 8.1 10^3/cmm (1.2-3.4)
[2023-09-06 15:14] LABS: Absolute Neutrophil 6.2 10^3/cmm (1.4-6.5); Platelet Estimate Normal (Normal); Smudge Cells 1+
[2023-09-06 15:15] LABS: Blastocytes 2 % (0-0)
[2023-09-06 17:16] LABS: LAB Peripheral Smear Sent for Review
== END 2023-10-03 23:59 | disposition home or self-care (01) ==
PROVIDERS: Internal Medicine; Nurse Practitioner Family; PCP Internal Medicine; Visit Provider Internal Medicine Medical Oncology
DX: C34.90 Malignant neoplasm of unspecified part of unspecified bronchus or lung (principal); C91.10 Chronic lymphocytic leukemia of B-cell type not having achieved remission; Z79.899 Other long term (current) drug therapy
CPT/HCPCS: 36415; 80053; 80503; 83615; 85007; 85025

== ENCOUNTER 2023-10-07 14:19 | Oncology outpatient (recurring) (ONCR) | payer OTHER, SELFPAY ==
[2023-10-07 15:06] LABS: Hematocrit 38.3 % (37-53); Mean Corpuscular HGB Conc 32.6 g/dL (30-55); Mean Corpuscular Hemoglobin 28.5 pg (27-33); Mean Corpuscular Volume 87.2 fl (82-101); Mean Platelet Volume 11.3 fL (7.4-10.4); Platelet Count 196 10^3/cmm (157-399); Red Blood Count 4.39 10^6/uL (3.85-5.65); Red Cell Distribution Width 15.9 % (12.1-15.1); White Blood Count 14.62 10^3/uL (3.29-11.43)
[2023-10-07 16:41] LABS: Slide Review Slide Review Perform
[2023-10-07 16:46] LABS: Absolute Eosinophils 0.9 10^3/cmm (0.0-0.7); Eosinophils 6 %; Lymphocytes 42 %; Lymphocytes Absolute 7.3 10^3/cmm (1.2-3.4); Monocytes Absolute 0.4 10^3/cmm (0.1-0.6); Platelet Estimate Normal (Normal); Segmented Neutrophils 41 %; Total Cells Counted 100 (0-100)
== END 2023-11-03 23:59 | disposition home or self-care (01) ==
PROVIDERS: Internal Medicine; PCP Internal Medicine; Visit Provider Internal Medicine Medical Oncology
DX: C91.10 Chronic lymphocytic leukemia of B-cell type not having achieved remission
CPT/HCPCS: 36415; 85007; 85025

== ENCOUNTER → 2023-11-25 10:07 | Outpatient (BNVA) | payer MEDICARE, SELFPAY | PROVIDERS: PCP Internal Medicine; Visit Provider Nurse Practitioner Family | DX: I10 Essential (primary) hypertension (principal); I25.10 Atherosclerotic heart disease of native coronary artery without angina pectoris; Z87.891 Personal history of nicotine dependence | CPT/HCPCS: 99214 ==

== ENCOUNTER 2023-12-09 12:23 | Oncology outpatient (recurring) (ONCR) | payer MEDICARE, SELFPAY ==
[2023-12-09 12:58] LABS: Basophils # 0.1 10^3/uL (0.0-0.1); Basophils % 0.7 %; Eosinophils # 0.3 10^3/uL (0.0-0.8); Eosinophils % 1.7 %; Hematocrit 42.9 % (37-53); Lymphocytes # 9.6 10^3/uL (0.8-4.8); Lymphocytes % 63.4 %; Mean Corpuscular HGB Conc 32.6 g/dL (30-55); Mean Corpuscular Hemoglobin 29.2 pg (27-33); Mean Corpuscular Volume 89.6 fl (82-101); Mean Platelet Volume 11.4 fL (7.4-10.4); Monocytes # 0.8 10^3/uL (0.2-0.9); Monocytes % 5.2 %; Neutrophils # 4.35 10^3/uL (1.8-7.7); Neutrophils % 28.7 %; Nucleated Red Blood Cells % 0 %; Platelet Count 185 10^3/cmm (157-399); Red Blood Count 4.79 10^6/uL (3.85-5.65); Red Cell Distribution Width 15.5 % (12.1-15.1); White Blood Count 15.18 10^3/uL (3.29-11.43)
[2023-12-09 13:19] LABS: Alanine Aminotransferase 30 U/L (0-41); Albumin Level 4.6 g/dL (3.5-5.2); Alkaline Phosphatase 61 U/L (40-130); Aspartate Amino Transferase 29 U/L (0-40); Blood Urea Nitrogen 14 mg/dL (8-23); Carbon Dioxide 27 mmol/L (22-29); Chloride 100 mmol/L (98-107); Globulin 2.8 g/dL (1.3-4.6); Glucose 159 mg/dL (65-115); Osmolality Calculated 290 mOsm/kg (285-295); Sodium 138 mmol/L (136-145); Total Bilirubin 0.7 mg/dL (0.15-1.2); Total Protein 7.4 g/dL (6.6-8.7)
[2023-12-09 13:25] LABS: Anion Gap 15.7 (5-19); Potassium 4.7 mmol/L (3.5-5.1)
[2023-12-09 13:29] LABS: Lactate Dehydrogenase 236 U/L (135-225)
[2023-12-09 13:33] LABS: LAB Peripheral Smear Sent for Review
[2023-12-09 13:49] LABS: Slide Review Slide Review Perform
== END 2024-01-02 23:59 | disposition home or self-care (01) ==
PROVIDERS: Internal Medicine; PCP Internal Medicine; Visit Provider Internal Medicine Medical Oncology
DX: C91.10 Chronic lymphocytic leukemia of B-cell type not having achieved remission (principal); Z79.899 Other long term (current) drug therapy
CPT/HCPCS: 36415; 80053; 83615; 85025; 99214

== ENCOUNTER 2023-12-15 12:19 | Outpatient (CLI) | payer MEDICARE, SELFPAY ==
--- NOTE | 2023-12-15 12:30 | CT_ITS ---
WS: [id number] CT ABDOMEN AND PELVIS WITH CONTRAST HISTORY: restaging/RUQ pain TECHNIQUE: Imaging performed of the abdomen and pelvis with IV contrast. Single phase imaging of the abdomen. Coronal and sagittal reformats are submitted. All CT scans at [facility] use at [facility] one of these dose optimization techniques: automated exposure control; mA and/or kV adjustment per patient size (includes targeted exams where dose is matched to clinical indication); or iterative re construction. IV CONTRAST: Omnipaque 350; 100 mL IV. Oral contrast: Yes. DLP: 704.51 mGy.cm COMPARISON: 11/05/2017 Lower thorax: Atelectatic changes at the lung bases. Mild cardiomegaly. Small hiatal hernia. Liver/biliary system: Normal size with no intrahepatic dilatation. Gallbladder: Normal. No gallstones or wall thickening. No pericholecystic fluid. Pancreas: Normal size pancreas and pancreatic duct. No adjacent inflammation. Spleen: Normal size spleen. No mass or infarct. Adrenal glands: Normal. Right kidney: Mild atrophy and cortical thinning. Nonobstructing 4 mm calcification in the lower pole . Exophytic simple cyst from the mid kidney measures 5.6 x 7.0 cm. No solid mass. Left kidney: Mild cortical thinning. Nonobstructing central calcification measuring 7 mm. No obstruct ion or mass. Aorta: Moderate atherosclerotic plaque throughout the aorta extending into the mesenteric arteries. C omponent of stenosis involving the origin of the celiac axis. No significant stenosis SMA although th ere is plaque. Heavy calcification near the renal arteries greater on the RIGHT. Mild aneurysmal dila tation infrarenal aorta of 3.1 cm. No interval change or progression. Heavy calcification continues i nto the iliac arteries. Lymphadenopathy: Stable subcentimeter RIGHT retrocrural lymph node. Small stable severo hepatis lymph nodes. No enlarging or new mesenteric lymph nodes. Small shotty unremarkable retroperitoneal lymph no yaima. No pelvic lymphadenopathy. Free fluid: None. GI tract: No obstruction. Prior appendectomy. Mild sigmoid diverticulosis. Abdominal wall: Unremarkable abdominal wall. No hernia. Pelvis: Enlarged heterogeneous prostate gland. Urinary bladder is not well distended. Bones: Prior LEFT hip arthroplasty. Mild RIGHT hip arthritis. IMPRESSION: 1. No new or enlarging lymph nodes throughout the abdomen or pelvis. 2. No ascites. 3. Nonobstructing bilateral renal calculi and RIGHT renal cyst. 4. Prior appendectomy. 5. Marked enlargement of the prostate gland encroaching into the urinary bladder. 6. Moderate atherosclerotic plaque abdominal aorta and mesenteric arteries. Component of stenosis at the celiac axis is likely. 7. Mild abdominal aortic aneurysm at 3.1 cm, unchanged since 2018.
[2023-12-15] MEDS: iohexol 350 mg/mL 500 mL Btl (per mL) PO (13:19)
[2023-12-15] MEDS: iohexol 350 mg/mL 500 mL Btl (per mL) IV (13:47)
== END 2023-12-15 12:20 | disposition home or self-care (01) ==
LOC: RAD 12:20
PROVIDERS: PCP Internal Medicine; Visit Provider Nurse Practitioner Family
DX: C91.10 Chronic lymphocytic leukemia of B-cell type not having achieved remission (principal); R10.11 Right upper quadrant pain; N20.0 Calculus of kidney; Z90.89 Acquired absence of other organs; N40.0 Benign prostatic hyperplasia without lower urinary tract symptoms; I70.0 Atherosclerosis of aorta; K55.1 Chronic vascular disorders of intestine; I71.40 Abdominal aortic aneurysm, without rupture, unspecified
CPT/HCPCS: 74177; Q9967

== ENCOUNTER → 2023-12-20 09:25 | Outpatient (BNVA) | payer MEDICARE, SELFPAY | PROVIDERS: PCP Internal Medicine; Visit Provider Nurse Practitioner Family | DX: L57.0 Actinic keratosis (principal); L81.4 Other melanin hyperpigmentation; L57.8 Other skin changes due to chronic exposure to nonionizing radiation; L82.1 Other seborrheic keratosis; D22.62 Melanocytic nevi of left upper limb, including shoulder | CPT/HCPCS: 17000; 99214 ==

== ENCOUNTER 2023-12-24 09:53 | Outpatient (CLI) | payer MEDICARE, SELFPAY ==
--- NOTE | 2023-12-24 10:00 | CTR_ITS ---
PROCEDURE INFORMATION: Exam: CT Chest Without Contrast; Diagnostic Exam date and time: 12/24/2023 10:08 AM Age: 78 years old Clinical indication: Condition or disease; Lung condition and disease; Other: F/u lung removal 03/2023; Prior surgery; Surgery date: 6+ months; Surgery type: RT lung removal TECHNIQUE: Imaging protocol: Diagnostic computed tomography of the chest without contrast. Radiation optimization: All CT scans at this facility use at least one of these dose optimization techniques: automated exposure control; mA and/or kV adjustment per patient size (includes targeted exams where dose is matched to clinical indication); or iterative reconstruction. COMPARISON: CT chest w con* [id number] 06/25/2023 10:14 AM RADIATION DOSE METRICS: Total DLP (mGy-cm): 546.41 FINDINGS: Lungs: The trachea is unremarkable. There is surgical truncation of the right upper lobe bronchus. There is volume loss in the right hemithorax with mild rightward mediastinal shift, similar to findings on 06/25/2023. There is subpleural scarring and atelectasis in the right lung base, similar to 06/25/2023. A right lower lobe nodule visible on 06/25/2023 is not visible on this exam, obscured by atelectasis. There is subsegmental atelectasis in the left lower lobe. The left lung is otherwise clear. Pleural spaces: There is mild chronic pleural thickening in the right base, similar to the findings on 06/25/2023. There is no pleural effusion or pneumothorax. Heart: There is mild cardiac enlargement. There is no pericardial effusion. Coronary arteries: There is severe coronary artery calcification. Mediastinal space: There are surgical changes in the right hilum. No mediastinal hematoma. Lymph nodes: There is no mediastinal or hilar lymphadenopathy. Vasculature: There is moderate aortic atherosclerotic disease. Liver: There is diffuse low-attenuation of the liver relative to the spleen consistent with fatty infiltration. Bones/joints: Bones are unremarkable. Soft tissues: The extrathoracic soft tissues are unremarkable. CT/CT chest con [id number] IMPRESSION: 1. No sign of disease progression in the thorax. 2. Right upper lobectomy. No apparent complications. No change since 06/25/2023. 3. Hepatic steatosis.
== END 2023-12-24 09:54 | disposition home or self-care (01) ==
LOC: RAD 09:53
PROVIDERS: PCP Internal Medicine; Visit Provider Internal Medicine Pulmonary Disease
DX: J98.4 Other disorders of lung (principal); K76.0 Fatty (change of) liver, not elsewhere classified
CPT/HCPCS: 71250

== ENCOUNTER → 2024-01-07 12:15 | Outpatient (BNVA) | payer MEDICARE, SELFPAY | PROVIDERS: PCP Internal Medicine; Visit Provider Specialist | DX: G56.20 Lesion of ulnar nerve, unspecified upper limb (principal); G56.03 Carpal tunnel syndrome, bilateral upper limbs; G56.23 Lesion of ulnar nerve, bilateral upper limbs; G58.7 Mononeuritis multiplex | CPT/HCPCS: 95910; 95911 ==

== ENCOUNTER → 2024-02-18 08:41 | Outpatient (BNVA) | payer MEDICARE, SELFPAY | PROVIDERS: PCP Internal Medicine; Visit Provider Physician Assistant | DX: R20.0 Anesthesia of skin (principal); G56.22 Lesion of ulnar nerve, left upper limb | CPT/HCPCS: 73080; 99214 ==

== ENCOUNTER 2024-03-08 10:25 | Oncology outpatient (recurring) (ONCR) | payer MEDICARE, SELFPAY ==
[2024-03-08 10:51] LABS: Basophils # 0.1 10^3/uL (0.0-0.1); Basophils % 0.7 %; Eosinophils # 0.3 10^3/uL (0.0-0.8); Eosinophils % 1.9 %; Hematocrit 39.1 % (37-53); Lymphocytes % 59.8 %; Mean Corpuscular Hemoglobin 30.3 pg (27-33); Mean Corpuscular Volume 91.8 fl (82-101); Mean Platelet Volume 11.7 fL (7.4-10.4); Monocytes # 0.7 10^3/uL (0.2-0.9); Monocytes % 4.4 %; Neutrophils # 4.94 10^3/uL (1.8-7.7); Neutrophils % 32.9 %; Nucleated Red Blood Cells % 0 %; Platelet Count 166 10^3/cmm (157-399); Red Blood Count 4.26 10^6/uL (3.85-5.65); Red Cell Distribution Width 14.6 % (12.1-15.1); White Blood Count 15.01 10^3/uL (3.29-11.43)
[2024-03-08 11:08] LABS: Alanine Aminotransferase 21 U/L (0-41); Albumin Level 4.2 g/dL (3.5-5.2); Alkaline Phosphatase 51 U/L (40-130); Anion Gap 15.5 (5-19); Aspartate Amino Transferase 21 U/L (0-40); Blood Urea Nitrogen 13 mg/dL (8-23); Calcium 8.8 mg/dL (8.5-10.5); Carbon Dioxide 23 mmol/L (22-29); Chloride 104 mmol/L (98-107); Globulin 2.5 g/dL (1.3-4.6); Glucose 139 mg/dL (65-115); Lactate Dehydrogenase 182 U/L (135-225); Osmolality Calculated 288 mOsm/kg (285-295); Potassium 4.5 mmol/L (3.5-5.1); Sodium 138 mmol/L (136-145); Total Bilirubin 0.7 mg/dL (0.15-1.2); Total Protein 6.7 g/dL (6.6-8.7)
[2024-03-08 11:24] LABS: Slide Review Slide Review Perform
[2024-03-15 14:16] LABS: CLL Prognostic Panel (BBPL) See Report
== END 2024-04-02 23:59 | disposition home or self-care (01) ==
PROVIDERS: Internal Medicine; Nurse Practitioner Family; PCP Internal Medicine; Visit Provider Internal Medicine Medical Oncology
DX: C91.10 Chronic lymphocytic leukemia of B-cell type not having achieved remission (principal); Z48.02 Encounter for removal of sutures
CPT/HCPCS: 36415; 80053; 81263; 82232; 83615; 85025; 88185; 88264; 88271; 88367; 88374; 99213

== ENCOUNTER 2024-03-30 05:50 | Day surgery (SDC) | payer MEDICARE, SELFPAY ==
[2024-03-30] VITALS (10 sets, daily range): BP systolic 138–169; BP diastolic 67–88; PULSE 60–84; RESP 16–18; TEMP 36.3–36.4; O2SAT 93–95; BMI 30.4
[2024-03-30] MEDS: acetaminophen 1,000 MG/100 ML PIGGYBACK 400 MG IV (06:50)
[2024-03-30] MEDS: ketorolac 30 mg/mL INJ IVP (06:51)
[2024-03-30] MEDS: sodium chloride 0.9% 1,000 ML 30 ML IV (06:53)
[2024-03-30] MEDS: scopolamine 1.5 Patch 1 PATCH TRANSDERMA (06:55)
--- NOTE | 2024-03-30 06:59 | W.PM.OPSFHP ---
Same Day Surgery H&P Indication for Procedure/HPI DATE OF PROCEDURE: March 30, 2024 CHIEF COMPLAINT/INDICATIONFOR SURGICAL PROCEDURE: Left cubital tunnel syndrome PREOP DIAGNOSIS: Left cubital tunnel syndrome PLANNED PROCEDURE: Operation Date: 03/30/24 07:00 Proposed Procedures p Cubital Tunnel Release at the Elbow 20504, G56.22(Left) - Bird Atwood DO s Possible Ulnar Nerve Transposition(Left) - Bird Atwood DO Medications/Allergies* Home Medications Medication Instructions Recorded Confirmed Type aspirin 81 mg chewable tablet 81 mg PO DAILY 12/03/22 03/29/24 History metformin 850 mg tablet 850 mg PO BID 12/03/22 03/29/24 History rosuvastatin 20 mg tablet 20 mg PO DAILY 12/03/22 03/29/24 History allopurinol 100 mg tablet 100 mg PO DAILY 03/23/23 03/29/24 History lisinopril 40 mg tablet 10 mg PO DAILY 03/23/23 03/29/24 History metoprolol succinate 100 mg 25 mg PO DAILY 03/23/23 03/29/24 History tablet,extended release 24 hr fluticasone propionate 50 1 spray intranasal DAILY PRN 07/05/23 03/29/24 History mcg/actuation nasal allergy symptoms spray,suspension Allergies/Adverse Reactions Allergy/AdvReac Type Severity Reaction Status Date / Time No Known Allergies Allergy Verified 03/29/24 16:22 Current Medications: Generic Name Dose Route Start Last Admin Trade Name Freq PRN Reason Stop Dose Admin Sodium Chloride 1,000 mls @ 30 mls/hr 03/30/24 06:00 03/30/24 06:53 Sodium Chloride 0.9% IV 03/31/24 05:59 30 mls/hr .Q24H VIRGEN Administration Pertinent History/Comorbid Conditions* Medical History (Updated 02/18/24 @ 09:05 by TIMOTHY Johns) CLL (chronic lymphocytic leukemia) Hypertension Prediabetes HOCM (hypertrophic obstructive cardiomyopathy) Surgical History (Updated 12/03/22 @ 18:49 by Ant Krishnan MD) History of hip surgery Family History (Updated 12/03/22 @ 18:49 by Ant Krishnan MD) CAD (coronary artery disease) Social History Smoking and tobacco/nicotine status: former use of tobacco/nicotine Quit status (tobacco/nicotine): has quit using Year quit tobacco: quit 25 years ago Former quit date comment: smoked for 45 + years Alcohol intake: current Alcohol intake frequency: few times a week Additional social history: Family history of Malignant Hyperthermia-Anesthesia Housing: House Pertinent Exam Findings alert, oriented x 3, operative site marked and procedure specific exam findings Please refer to detailed orthopedic examination on 02/18/2024 see below: Left Hand exam-negative Tinel's and negative Phalen's test. No thenar atrophy and No thenar muscle weakness. Full range of motion in fingers and wrist and fingers are warm and well-perfused with normal cap refill under 2 seconds. Radial pulse 2+, intrinsic muscle weakness and atrophy noted. Left Elbow exam-positiveTinel's test Recommendations Surgery/Procedure today Other Plans: Plan to proceed to the OR today for left cubital tunnel release with possible ulnar nerve transposition. 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 As result we will proceed with a left cubital tunnel release with possible ulnar nerve transposition he understands the ins and outs procedure risk benefits complication alternatives of surgery and through shared decision make elects proceed with surgical intervention. All questions answered at this time. Coding Level of Care Code Acute Code for Chg Fwvivian
--- NOTE | 2024-03-30 07:03 | ANES.PREANE2 ---
Pre-Anesthetic Assessment Height/Weight: Height 1.73 m Weight 90.718 kg Temp Pulse Resp BP Pulse Ox O2 Del Method 97.6 F 60 18 140/69 95 Room Air 03/30/24 06:12 03/30/24 06:12 03/30/24 06:12 03/30/24 06:12 03/30/24 06:12 03/30/24 06:24 Preop Diagnosis: Left cubital tunnel syndrome Operation Date: 03/30/24 07:00 Proposed Procedures p Cubital Tunnel Release at the Elbow 57816, G56.22(Left) - Bird Atwood DO s Possible Ulnar Nerve Transposition(Left) - Bird Atwood DO Familial anesthetic complications: family history MH Was Beta Sara taken within 24 hours: N/A Was Clonidine taken within 24 hours: N/A Last intake: Intake Last Liquid Date 03/29/24 Last Liquid Time 21:00 Last Solid Date 03/29/24 Last Solid Time 15:00 Social No alcohol and No tobacco Exam alert, oriented x 3, clear to auscultation bilaterally and regular rate & rhythm Airway Dentition: other (patient has toothache) Pulmonary Chronic Obstructive Pulmonary Disease and Sleep Apnea Lobe resection for lung SCC CV/HEM Coronary Artery Disease, Hypertension and Myocardial Infarction Metabolic Diabetes Mellitus and Hyperlipidemia Anesthetic Plan ASA status: 3 Anesthesia: General Risk of > 500 ml blood loss (7ml/kg in children): No Medications/Allergies Home Medications Medication Instructions Recorded Confirmed Last Taken Type aspirin 81 mg chewable tablet 81 mg PO DAILY 12/03/22 03/29/24 03/24/24 History metformin 850 mg tablet 850 mg PO BID 12/03/22 03/29/24 03/29/24 History rosuvastatin 20 mg tablet 20 mg PO DAILY 12/03/22 03/29/24 03/29/24 History allopurinol 100 mg tablet 100 mg PO DAILY 03/23/23 03/29/24 03/29/24 History lisinopril 40 mg tablet 10 mg PO DAILY 03/23/23 03/29/24 03/29/24 History metoprolol succinate 100 mg 25 mg PO DAILY 03/23/23 03/29/24 03/30/24 History tablet,extended release 24 hr fluticasone propionate 50 1 spray intranasal DAILY PRN 07/05/23 03/29/24 Unknown History mcg/actuation nasal allergy symptoms spray,suspension Allergies Allergy/AdvReac Type Severity Reaction Status Date / Time No Known Allergies Allergy Verified 03/29/24 16:22 Current Medications Generic Name Dose Route Start Last Admin Trade Name Sorin PRN Reason Stop Dose Admin Sodium Chloride 1,000 mls @ 30 mls/hr 03/30/24 06:00 03/30/24 06:53 Sodium Chloride 0.9% IV 03/31/24 05:59 30 mls/hr .Q24H VIRGEN Administration PFSH Anesthesia Medical History CLL (chronic lymphocytic leukemia) Hypertension Prediabetes HOCM (hypertrophic obstructive cardiomyopathy) Surgical History History of hip surgery Family History Other CAD (coronary artery disease) Social History (Updated 03/30/24 @ 06:58 by Joanna Sherman RN) Smoking and tobacco/nicotine status: former use of tobacco/nicotine Quit status (tobacco/nicotine): has quit using Year quit tobacco: quit 25 years ago Former quit date comment: smoked for 45 + years Alcohol intake: current Alcohol intake frequency: few times a week Additional social history: Family history of Malignant Hyperthermia-Anesthesia Housing: House Data Anesthesia Cardiac Studies: Echocardiogram 08/25/23 Sestamibi Stress Test (Cardiology) 12/09/22
[2024-03-30 07:14] LABS: Glucose Point of Care 176 mg/dL (70-110)
[2024-03-30] MEDS: ceFAZolin 2,000 MG in sodium chloride 0.9% (plus) 50 ML 100 MG IV (07:43)
[2024-03-30] MEDS: ROPivacaine 0.5% SDV 30 mL 25 MG INJECTION (08:11)
[2024-03-30] MEDS: lidocaine 2% INJ 20 mL INJECTION (08:11)
[2024-03-30] MEDS: neomycin-poly-bacitracin oint 28 gm 1 APPLIC TOPICAL (08:30)
--- NOTE | 2024-03-30 08:51 | W.PM.BPON ---
Date of Procedure: 03/30/2024 Surgeon: Bird Atwood DO Insurance Special Agent(s): None Procedure(s) performed: Left cubital tunnel release(Ulnar nerve decompression at the elbow) Findings of the procedure(s): Patient was found to have severe left cubital tunnel syndrome underwent procedure as planned without issues or complications no subluxating of the ulnar nerve and as result in situ release was performed no transposition. Estimated blood loss: 5 mL Specimen(s) removed: None Post-operative diagnosis: Left cubital tunnel syndrome
--- NOTE | 2024-03-30 08:52 | P.OP_ITS ---
Operative Report Date of procedure: March 30, 2024 Surgeon: Bird Atwood DO Procedure: Preoperative diagnosis: Left cubital tunnel syndrome Post-op diagnosis:? Left?cubital?tunnel syndrome Post-op findings: See operative note Procedure done: Left?cubital?tunnel release(ulnar nerve decompression at the elbow) Surgeon: Bird Atwood DO Estimated blood loss: 5cc Tourniquet Time: 12 minutes IV fluids: See anesthesia record Complications: None Findings: See operative report narrative Condition: stable Disposition: same day Brief History: Patient is a pleasant 78-year-old Male was seen evaluated in the outpatient setting for Left ulnar nerve neuropathy at the elbow.? Patient had nerve conduction/EMG findings consistent with this having severe disease.? ?On my examination in the office patient findings are consistent with this preoperative diagnosis. We had detailed discussion in office about continued nonoperative intervention versus operative intervention.? Patient understands the risk benefits complications alternatives to surgical and nonsurgical treatment options.? Patient understands the risks include but not limited to make it better, make it worse, infection, permanent injury to nerve, decreased function and sensation to the hand with persistent weakness.? Given these risks patient understands and agrees to proceed with current plan.? Patient elects to proceed with a Left?cubital?tunnel release and possible ulnar nerve transposition. all questions answered. Procedure: Patient was seen and evaluated in the preoperative holding area.? The consent that was filled out in office was reviewed with patient and confirmed to be appropriate for Left ulnar nerve?cubital?tunnel release and possible ulnar nerve transposition.? Correct extremity was then marked.? Patient was seen evaluated by the preoperative team as well as anesthesia department.? Once cleared for surgery patient was then taken to the operative suite and transported onto the operative table all bony prominences were well-padded and patient was secured to the table.? Left upper extremity was placed on an armboard.? Patient then underwent anesthesia per the anesthesia department. The Left upper extremity tourniquet was applied. Patient's Left upper extremity was then prepped and draped in standard orthopedic fashion. This point a final timeout was performed. Patient received appropriate preop antibiotics. Esmarch tourniquet was used to exsanguinate the operative extremity and was insufflated to 250 mmHg.? Standard curvilinear incision was made centering over the ulnar nerve between the medial epicondyle and olecranon process.? Sharp scalpel excision through skin and subcutaneous tissue was performed.? Once I encountered subcutaneous tissue I then utilized dissection scissors to spread in the path of the [facility] and care was made to protect any nerve branches throughout this case.? I then utilized a scalpel to complete my dissection directly on over to the flexor pronator mass and elevated this fat tissue directly off of the fascia.? I started my dissection of the ulnar nerve the nerve proximally.? Once identified I then utilized Littler dissection scissors and decompress the nerve completely and proximally and utilized blunt dissection to make sure there was no entrapment proximally..? Once decompressed proximally I then traced the nerve distal through Fuentes's ligament and as it entered the FCU fascia aponeurosis and completed by decompression and ulnar nerve neurolysis distally.? The nerve was completely released in situ no areas of entrapment I was able to place my finger distally and proximally with no areas entrapment along the nerve.? At this point in time by in situ release was completed I then subsequently took the elbow through range of motion and no subluxation was noted over the medial epicondyle as result no transposition was performed. Wound bed was then thoroughly irrigated.? Tourniquet was deflated.? Maintained exact hemostasis with bipolar electrocautery.? As result the skin was reapproximated with interrupted Vicryl subcutaneous suture 3-0.? I next utilized a running horizontal mattress stitch with 3-0 nylon.? Extremity was then cleaned and the incision was then covered with Xeroform 4 x 4's ABD Curlex and soft roll and a applied with an Deepak wrap.? Patient was then awakened from anesthesia and taken to PACU in stable condition. Disposition: Patient taken to PACU in stable condition.? Patient given appropriate discharge instructions as well as pain medication.?Patient will see ortho in office in 2 weeks.? pt understands? if they has any questions they can contact the office.
--- NOTE | 2024-03-30 10:15 | ANE.PACU2 ---
Inpatient post-anesthesia follow up: Airway intact: Yes Vital signs: Temperature 97.4 F Pulse Rate 72 Respiratory Rate 18 Blood Pressure 156/88 Pulse Oximetry 94 Oxygen Delivery Me thod Room Air Oxygen Flow Rate Fraction of Inspir ed Oxygen Hydration adequate: Yes Nausea and vomiting: No Pain level: 1 Mental status: Baseline
== END 2024-03-30 10:19 | disposition home or self-care (01) ==
PROVIDERS: PCP Internal Medicine; Visit Provider Student in an Organized Health Care Education/Training Program
PROC: (CPT 64718; principal; 2024-03-30 07:00)
DX: G56.22 Lesion of ulnar nerve, left upper limb (principal); I25.2 Old myocardial infarction; J44.9 Chronic obstructive pulmonary disease, unspecified; I10 Essential (primary) hypertension; E11.9 Type 2 diabetes mellitus without complications; E78.5 Hyperlipidemia, unspecified; Z79.82 Long term (current) use of aspirin; E16.2 Hypoglycemia, unspecified; Z87.891 Personal history of nicotine dependence
CPT/HCPCS: 64718; 36416; 82962; J0131; J0690; J1100; J1885; J2250; J2371; J2405; J2704; J2795; J3010; J7030

== ENCOUNTER → 2024-04-14 08:25 | Outpatient (BNVA) | payer MEDICARE, SELFPAY | PROVIDERS: PCP Internal Medicine; Visit Provider Physician Assistant | DX: Z98.890 Other specified postprocedural states (principal) | CPT/HCPCS: 99024 ==

== ENCOUNTER → 2024-04-20 09:05 | Outpatient (BNVA) | payer MEDICARE, SELFPAY | PROVIDERS: PCP Internal Medicine; Visit Provider Nurse Practitioner Family | DX: L57.0 Actinic keratosis (principal); L81.4 Other melanin hyperpigmentation; L82.1 Other seborrheic keratosis; D22.62 Melanocytic nevi of left upper limb, including shoulder; L70.8 Other acne; L23.7 Allergic contact dermatitis due to plants, except food | CPT/HCPCS: 17000; 99214 ==

== ENCOUNTER 2024-06-21 11:14 | Oncology outpatient (recurring) (ONCR) | payer MEDICARE, SELFPAY ==
--- NOTE | 2024-06-14 13:04 | CTR_ITS ---
PROCEDURE INFORMATION: Exam: CT Chest With Contrast; Diagnostic Exam date and time: 06/14/2024 1:33 PM Age: 79 years old Clinical indication: Condition or disease; Other: Cll; Prior surgery; Surgery date: 6+ months; Surgery type: RT lobectomy TECHNIQUE: Imaging protocol: Diagnostic computed tomography of the chest with contrast. Radiation optimization: All CT scans at this facility use at least one of these dose optimization techniques: automated exposure control; mA and/or kV adjustment per patient size (includes targeted exams where dose is matched to clinical indication); or iterative reconstruction. Contrast material: OMNI 350; Contrast volume: 100 ml; Contrast route: INTRAVENOUS (IV); COMPARISON: CT chest wo con [id number] 12/24/2023 10:08 AM RADIATION DOSE METRICS: Total DLP (mGy-cm): 473.42 FINDINGS: Lungs: Prior right upper lobectomy. Mild linear scarring in the bilateral lung bases. Mild centrilobular and paraseptal emphysema. Mild right apical pleural-parenchymal scarring and traction saccular bronchiectasis. Pleural spaces: See Lungs finding. Heart: Unremarkable. No cardiomegaly. No pericardial effusion. Coronary arteries: Moderately extensive coronary calcification. Lymph nodes: Stable borderline superior mediastinal paratracheal nodes up to 9 mm (series 3, image 11). Vasculature: Moderately extensive atherosclerotic calcific plaque in the thoracic and visualized abdominal aorta. Liver: Mild diffuse hepatic steatosis. Kidneys: 6.3 cm right renal cyst again noted. Bones/joints: Moderate multilevel thoracic and upper lumbar spondylosis. Moderate bilateral glenohumeral arthrosis. Soft tissues: Unremarkable. CT/CT chest w con* [id number] IMPRESSION: 1. Stable appearance of the chest compared to 12/24/2023 CT. Previous right upper lobectomy .No suspicious nodularity , progressive adenopathy or mass lesion. 2. Mild emphysema, right apical scarring and mild traction bronchiectasis. Extensive coronary calcification and other chronic findings detailed above
[2024-06-14 13:33] LABS: Blood Urea Nitrogen 10 mg/dL (8-23)
[2024-06-14] MEDS: iohexol 350 mg/mL 500 mL Btl (per mL) IV (13:43)
[2024-06-21 11:32] LABS: Basophils # 0.1 10^3/uL (0.0-0.1); Basophils % 0.6 %; Eosinophils # 0.3 10^3/uL (0.0-0.8); Eosinophils % 1.5 %; Hematocrit 40.6 % (37-53); Lymphocytes # 11.3 10^3/uL (0.8-4.8); Lymphocytes % 64.1 %; Mean Corpuscular HGB Conc 33.3 g/dL (30-55); Mean Corpuscular Hemoglobin 29.9 pg (27-33); Mean Corpuscular Volume 89.8 fl (82-101); Mean Platelet Volume 11.7 fL (7.4-10.4); Monocytes # 0.8 10^3/uL (0.2-0.9); Monocytes % 4.4 %; Neutrophils # 5.17 10^3/uL (1.8-7.7); Neutrophils % 29.2 %; Nucleated Red Blood Cells % 0 %; Platelet Count 177 10^3/cmm (157-399); Red Blood Count 4.52 10^6/uL (3.85-5.65); Red Cell Distribution Width 14.4 % (12.1-15.1); White Blood Count 17.64 10^3/uL (3.29-11.43)
[2024-06-21 11:49] LABS: Alanine Aminotransferase 19 U/L (0-41); Albumin Level 4.3 g/dL (3.5-5.2); Alkaline Phosphatase 60 U/L (40-130); Anion Gap 17.3 (5-19); Aspartate Amino Transferase 24 U/L (0-40); Blood Urea Nitrogen 14 mg/dL (8-23); Calcium 8.8 mg/dL (8.5-10.5); Carbon Dioxide 23 mmol/L (22-29); Chloride 104 mmol/L (98-107); Globulin 2.4 g/dL (1.3-4.6); Glucose 137 mg/dL (65-115); Lactate Dehydrogenase 190 U/L (135-225); Osmolality Calculated 293 mOsm/kg (285-295); Potassium 4.3 mmol/L (3.5-5.1); Sodium 140 mmol/L (136-145); Total Protein 6.7 g/dL (6.6-8.7)
== END 2024-07-03 23:59 | disposition home or self-care (01) ==
PROVIDERS: Nurse Practitioner Family; PCP Internal Medicine; Visit Provider Internal Medicine
DX: Z53.9 Procedure and treatment not carried out, unspecified reason (principal); C34.90 Malignant neoplasm of unspecified part of unspecified bronchus or lung; Z90.2 Acquired absence of lung [part of]; C91.10 Chronic lymphocytic leukemia of B-cell type not having achieved remission
CPT/HCPCS: 36415; 71260; 80053; 82565; 83615; 84520; 85025; 99214

== ENCOUNTER → 2024-08-21 12:11 | Outpatient (BNVA) | payer MEDICARE, SELFPAY | PROVIDERS: PCP Internal Medicine; Visit Provider Internal Medicine Cardiovascular Disease | DX: R07.9 Chest pain, unspecified (principal); R06.02 Shortness of breath | CPT/HCPCS: 80048; 83880; 93005; 99214 ==

== ENCOUNTER → 2024-08-22 09:24 | Outpatient (BNVA) | payer MEDICARE, SELFPAY | PROVIDERS: PCP Internal Medicine; Visit Provider Nurse Practitioner Family | DX: L57.0 Actinic keratosis (principal); L81.4 Other melanin hyperpigmentation; L82.1 Other seborrheic keratosis; D22.62 Melanocytic nevi of left upper limb, including shoulder; L70.8 Other acne; D48.5 Neoplasm of uncertain behavior of skin | CPT/HCPCS: 11102; 17000; 99213 ==

== ENCOUNTER → 2024-11-20 09:28 | Outpatient (BNVA) | payer MEDICARE, SELFPAY | PROVIDERS: PCP Family Medicine; Visit Provider Nurse Practitioner Family | DX: L81.4 Other melanin hyperpigmentation (principal); L82.1 Other seborrheic keratosis; D22.62 Melanocytic nevi of left upper limb, including shoulder; L57.8 Other skin changes due to chronic exposure to nonionizing radiation; L57.0 Actinic keratosis | CPT/HCPCS: 17000; 99213 ==

== ENCOUNTER 2024-12-21 12:31 | Oncology outpatient (recurring) (ONCR) | payer MEDICARE, SELFPAY ==
--- NOTE | 2024-12-18 10:45 | CT_ITS ---
WS: [id number] CT CHEST TECHNIQUE: Contrast enhanced CT of the chest with coronal and sagittal reformatted images. CLINICAL INFORMATION: surveillance COMPARISON: 06/14/2024 DLP: 472.[address] scans at [facility] use at least one of these dose optimization techniques: automated exposure control; mA and/or kV adjustment per patient size (includes targeted exams where dose is matched to clinical indication); or iterative reconstruction. FINDINGS: Prior postoperative changes RIGHT upper lobectomy. Mild chronic emphysematous changes. Pleural-parenchymal scarring in the RIGHT greater than LEFT lung apices. Traction bronchiectasis RIGHT upper lobe. Subsegmental atelectasis with parenchymal scarring in the RIGHT lower lobe unchanged. Moderate coronary calcification. No mediastinal or hilar lymphadenopathy. Aortic calcification. Fatty liver. Partially visualized RIGHT renal cyst. Calcification of the celiac and SMA origins. Tiny esophageal hiatal hernia. Adrenal glands are normal. Moderate thoracic kyphosis. Ankylosis thoracic spine. CT/CT chest w con* [id number] IMPRESSION: 1. Stable postoperative changes RIGHT upper lobectomy. 2. No new suspicious pulmonary parenchymal abnormalities. 3. No mediastinal or hilar lymphadenopathy.
[2024-12-18 11:04] LABS: Blood Urea Nitrogen 14 mg/dL (8-23)
[2024-12-18] MEDS: iohexol 350 mg/mL 500 mL Btl (per mL) IV (11:12)
[2024-12-21 12:50] LABS: Basophils # 0.1 10^3/uL (0.0-0.1); Basophils % 0.5 %; Eosinophils # 0.2 10^3/uL (0.0-0.8); Eosinophils % 1.3 %; Hematocrit 40.2 % (37-53); Lymphocytes % 69.2 %; Mean Corpuscular HGB Conc 33.1 g/dL (30-55); Mean Corpuscular Hemoglobin 30.3 pg (27-33); Mean Corpuscular Volume 91.6 fl (82-101); Mean Platelet Volume 11.3 fL (7.4-10.4); Monocytes # 0.6 10^3/uL (0.2-0.9); Monocytes % 3.4 %; Neutrophils # 4.77 10^3/uL (1.8-7.7); Neutrophils % 25.3 %; Nucleated Red Blood Cells % 0.1 %; Platelet Count 158 10^3/cmm (157-399); Red Blood Count 4.39 10^6/uL (3.85-5.65); Red Cell Distribution Width 14.8 % (12.1-15.1); White Blood Count 18.82 10^3/uL (3.29-11.43)
[2024-12-21 13:12] LABS: Alanine Aminotransferase 29 U/L (0-41); Albumin Level 4.5 g/dL (3.5-5.2); Alkaline Phosphatase 47 U/L (40-130); Anion Gap 17.4 (5-19); Aspartate Amino Transferase 37 U/L (0-40); Blood Urea Nitrogen 19 mg/dL (8-23); Calcium 9.1 mg/dL (8.5-10.5); Carbon Dioxide 23 mmol/L (22-29); Chloride 100 mmol/L (98-107); Globulin 2.5 g/dL (1.3-4.6); Glucose 148 mg/dL (65-115); Lactate Dehydrogenase 198 U/L (135-225); Osmolality Calculated 287 mOsm/kg (285-295); Potassium 4.4 mmol/L (3.5-5.1); Sodium 136 mmol/L (136-145); Total Bilirubin 1.2 mg/dL (0.15-1.2)
== END 2025-01-01 23:59 | disposition home or self-care (01) ==
PROVIDERS: Nurse Practitioner Family; PCP Family Medicine; Visit Provider Internal Medicine
DX: Z53.9 Procedure and treatment not carried out, unspecified reason; Z08 Encounter for follow-up examination after completed treatment for malignant neoplasm; Z85.6 Personal history of leukemia; Z85.118 Personal history of other malignant neoplasm of bronchus and lung; Z87.891 Personal history of nicotine dependence; Z90.12 Acquired absence of left breast and nipple
CPT/HCPCS: 36415; 71260; 80053; 82565; 83615; 84520; 85025; 99214

== ENCOUNTER → 2025-02-19 10:37 | Outpatient (BNVA) | payer MEDICARE, SELFPAY | PROVIDERS: PCP Family Medicine; Visit Provider Nurse Practitioner Family | DX: I25.10 Atherosclerotic heart disease of native coronary artery without angina pectoris (principal); I10 Essential (primary) hypertension; R06.02 Shortness of breath; E78.5 Hyperlipidemia, unspecified; I95.9 Hypotension, unspecified; Z87.891 Personal history of nicotine dependence; I25.2 Old myocardial infarction | CPT/HCPCS: 99214 ==

== ENCOUNTER 2025-02-22 12:48 | Outpatient (CLI) | payer MEDICARE, SELFPAY ==
[2025-02-22 13:48] LABS: Alanine Aminotransferase 26 U/L (0-41); Albumin Level 4.5 g/dL (3.5-5.2); Alkaline Phosphatase 45 U/L (40-130); Anion Gap 16.5 (5-19); Aspartate Amino Transferase 25 U/L (0-40); Blood Urea Nitrogen 19 mg/dL (8-23); Calcium 9.6 mg/dL (8.5-10.5); Carbon Dioxide 25 mmol/L (22-29); Chloride 99 mmol/L (98-107); Chol HDL Ratio 3.56 mg/dL (1.0-5.00); Cholesterol 121 mg/dL (0-200); Globulin 2.4 g/dL (1.3-4.6); Glucose 195 mg/dL (65-115); HDL Cholesterol 34 mg/dL (60-100); LDL Cholesterol Calculated 32 mg/dL (50-129); LDL HDL Ratio 0.94 RATIO (0.00-3.22); Osmolality Calculated 290 mOsm/kg (285-295); Potassium 4.5 mmol/L (3.5-5.1); Sodium 136 mmol/L (136-145); Total Bilirubin 0.7 mg/dL (0.15-1.2); Total Protein 6.9 g/dL (6.6-8.7); Triglycerides 276 mg/dL (0-150)
[2025-02-22 15:09] LABS: Creatine Phosphokinase 104 U/L (39-308)
== END 2025-02-22 12:49 | disposition home or self-care (01) ==
PROVIDERS: PCP Family Medicine; Visit Provider Nurse Practitioner Family
DX: I10 Essential (primary) hypertension (principal); I21.A1 Myocardial infarction type 2
CPT/HCPCS: 36415; 80053; 80061; 82550

== ENCOUNTER → 2025-03-20 09:09 | Outpatient (BNVA) | payer MEDICARE, SELFPAY | PROVIDERS: PCP Family Medicine; Visit Provider Nurse Practitioner Family | DX: L57.8 Other skin changes due to chronic exposure to nonionizing radiation (principal); X32.XXXA Exposure to sunlight, initial encounter; L81.4 Other melanin hyperpigmentation; L82.1 Other seborrheic keratosis; Z08 Encounter for follow-up examination after completed treatment for malignant neoplasm; Z86.007 Personal history of in-situ neoplasm of skin; D48.5 Neoplasm of uncertain behavior of skin; L57.0 Actinic keratosis | CPT/HCPCS: 11102; 17000; 99213 ==

== ENCOUNTER → 2025-03-22 08:05 | Outpatient (BNVA) | payer MEDICARE, SELFPAY | PROVIDERS: PCP Family Medicine; Visit Provider Nurse Practitioner Family | DX: I42.1 Obstructive hypertrophic cardiomyopathy (principal); I10 Essential (primary) hypertension; F17.200 Nicotine dependence, unspecified, uncomplicated; G47.33 Obstructive sleep apnea (adult) (pediatric); I25.10 Atherosclerotic heart disease of native coronary artery without angina pectoris | CPT/HCPCS: 99214 ==

== ENCOUNTER 2025-04-26 06:39 | Oncology outpatient (recurring) (ONCR) | payer MEDICARE, SELFPAY ==
--- NOTE | 2025-04-26 07:00 | USCV_ITS ---
[facility] Age: 79 Gender: M : 1945 Exam Date: 04/26/2025 06:55 Ordering Phys: Spencer Merchant DO Technologist: Exam Location[place] [facility] [place]ication: cp leg swelling BP: 130 / 80 HR: 63 Rhythm: Sinus Technical Quality: Adequate MEASUREMENTS (Male / Female) Normal Values 2D ECHO LV Diastolic Diameter PLAX 5.2 cm 4.2 - 5.9 / 3.9 - 5.3 cm IVS Diastolic Thickness 1.1 cm 0.6 - 1.0 / 0.6 - 0.9 cm IVS Systolic Thickness 1.4 cm LVPW Diastolic Thickness 1.3 cm 0.6 - 1.0 / 0.6 - 0.9 cm LVPW Systolic Thickness 1.9 cm LVOT Diameter 2.1 cm LV Ejection Fraction 2D Teich 66.1 % LV Ejection Fraction MOD 4C 48.9 % LV Ejection Fraction MOD 2C 56.7 % LV Ejection Fraction 2C AL 56.1 % LA Diameter 4.3 cm RA Systolic Volume 4C AL 68.0 ml RA Systolic Volume 4C MOD 61.8 ml Aorta at Sinotubular Diameter 2.8 cm M-MODE LA Ao Ratio MM 1.4 AV Cusp Separation MM 2.1 cm DOPPLER AV Peak Velocity 135.0 cm/s LVOT Peak Velocity 116.0 cm/s AV Area Cont Eq vti 3.4 cm squared AV Area Cont Eq pk 2.9 cm squared MV Peak Velocity 122.0 cm/s MV Area PHT 2.5 cm squared Mitral E to A Ratio 0.7 TV Peak Velocity 146.0 cm/s TR Peak Velocity 160.0 cm/s TR Peak Gradient 10.2 mmHg TV Peak E Velocity 74.0 cm/s PV Peak Velocity 101.0 cm/s FINDINGS Left Ventricle Normal left ventricular size, systolic function and wall thickness, with no regional wall motion abnormalities. Left ventricular ejection fraction is estimated at 60 %. Grade I/IV diastolic dysfunction (abnormal relaxation filling pattern), normal to mildly elevated filling pressures. Right Ventricle The right ventricle is normal in size and function. Right Atrium The right atrium is normal in size. Left Atrium The left atrium is normal in size. Mitral Valve Thickened mitral valve. No mitral valve stenosis. Mild-moderate mitral valve regurgitation. Aortic Valve Mild aortic valve calcification. No aortic valve stenosis. Trace aortic valve regurgitation. Tricuspid Valve Structurally normal tricuspid valve without significant stenosis or regurgitation. Pulmonary artery systolic pressure is normal. Pulmonic Valve Structurally normal pulmonic valve without significant stenosis. There is no pulmonic regurgitation. Pericardium Normal pericardium without effusion. Aorta Normal ascending aorta dimension. IVC The inferior vena cava appears normal. CONCLUSIONS Normal left ventricular size, systolic function and wall thickness, with no regional wall motion abnormalities. Left ventricular ejection fraction is estimated at 60 %. Grade I/IV diastolic dysfunction (abnormal relaxation filling pattern), normal to mildly elevated filling pressures. Thickened mitral valve. No mitral valve stenosis. Mild-moderate mitral valve regurgitation. There is no pericardial effusion. Right atrial pressure is around 5 mm of mercury. Ant Starr MD (Electronically Signed) Final Date: 27 April 2025 21:20 S
== END 2025-05-03 23:59 | disposition home or self-care (01) ==
PROVIDERS: PCP Family Medicine; Visit Provider Internal Medicine
DX: Z53.9 Procedure and treatment not carried out, unspecified reason (principal); Z08 Encounter for follow-up examination after completed treatment for malignant neoplasm; Z85.6 Personal history of leukemia; Z85.118 Personal history of other malignant neoplasm of bronchus and lung; Z87.891 Personal history of nicotine dependence; Z90.12 Acquired absence of left breast and nipple; C91.10 Chronic lymphocytic leukemia of B-cell type not having achieved remission; C34.90 Malignant neoplasm of unspecified part of unspecified bronchus or lung; Z90.2 Acquired absence of lung [part of]; J98.4 Other disorders of lung; J43.8 Other emphysema; R91.1 Solitary pulmonary nodule; Z48.02 Encounter for removal of sutures; J81.1 Chronic pulmonary edema; M79.89 Other specified soft tissue disorders; R06.09 Other forms of dyspnea
CPT/HCPCS: 93306

== ENCOUNTER 2025-05-10 15:27 | Emergency (ER) | payer MEDICARE, SELFPAY ==
--- OUTSIDE RECORDS SUMMARY | 2025-05-10 15:32 | XMS_ITS | Clinical Summary ---
Author Organization [facility] Address [address] [place] [address] Care Team Providers Care It Security Architect Name Role Phone Adriel Barbozaiel Primary Care Provide r Allergies No known active allergies Medications metFORMIN (GLUCOPHAGE) 850 mg tablet TAKE 1 TABLET BY MOUTH TWICE A DAY 3 07/27/2019 Active rosuvastatin (CRESTOR) 20 mg tablet Take 20 mg by mouth daily. 10/17/2019 Active lisinopril (PRINIVIL) 40 mg tablet TAKE ONE TABLET BY MOUTH DAILY 10/03/2019 Active metoprolol succinate (TOPROL XL) 100 mg Extended Release 24 hour tablet TAKE 1/2 (ONE HALF) TAB TABLET DAILY 08/29/2019 Active amLODIPine (NORVASC) 10 mg tablet Take 10 mg by mouth daily. 09/15/2019 Active allopurinoL (ZYLOPRIM) 100 mg tablet Take 100 mg by mouth daily. 09/15/2019 Active fluticasone propionate (FLONASE) 50 mcg/spray [place], Suspension nasal inhaler INSTILL 1 SPRAY 2 TIMES DAILY 10/03/2019 Active walker Length of Need: 99 months Type of walker:walke r with wheels 1 Each 04/25/2020 Active acetaminophen (TYLENOL) 325 mg tablet Take 500 mg by mouth 1 time daily as needed. Active Active Problems Problem Noted Date Diagnosed Date Status post total replacement of left hip 2019 Leukocytosis 04/11/2020 Overview (04/11/2020): Follow by hematology. Dr. Phoenix at the [facility] located in [place] Anemia 04/11/2020 KRISTINE on CPAP 04/10/2020 Essential hypertension 04/10/2020 Dyslipidemia 04/10/2020 Type 2 diabetes mellitus wit h hyperglycemia, without long-term current use of insulin 04/10/2020 Gout 04/10/2020 Allergic rhinitis 04/10/2020 Obesity (BMI 30.0-34.9) 04/10/2020 Hyperkalemia 04/10/2020 Resolved Problems Problem Noted Date Diagnosed Date Resolved Date Primary osteoarthritis of left hip 04/10/2020 05/22/2020 Preoperative general physical examination 04/10/2020 04/24/2020 Family History Medical History Relation Name Comments No Known Problems Brother 1 No Known Problems Brother 2 No Known Problems Daughter 1 No Known Problems Daughter 2 No Known Problems Daughter 3 No Known Problems Father Stroke Mother Breast Cancer Sister 1 No Known Problems Sister 2 No Known Problems Sister 3 No Known Problems Son Relation Name Status Comments Brother 1 Alive Brother 2 Alive Brother 3 Alive Daughter 1 Alive Daughter 2 Alive Daughter 3 Alive Father (Age 84) Mother (Age 56) Sister 1 Alive Sister 2 Alive Sister 3 Alive Son Alive Social History Tobacco Use Types Packs/Day Years Used Date Smoking Tobacco: Former Cigarettes 1 40 0 04/10/1960 - 04/10/2000 Smokeless Tobacco: Former Chew Quit: 04/10/2000 Alcohol Use Standard Drinks/Week Comments Yes 3 (1 standard drink = 0.6 oz pur e alcohol) Sex and Gender Information Value Date Recorded Sex Assigned at Not on file Legal Sex Male 10:32 AM CDT Gender Identity Not on file Sexual Orientation Not on file Last Filed Vital Signs Vital Sign Reading Time Taken Comments Blood Pressure 122/88 09/02/2020 9:29 AM VETERINARY LIVESTOCK INSPECTOR Pulse 98 09/02/2020 9:29 AM VETERINARY LIVESTOCK INSPECTOR Temperature 36.6 C (97.9 F) 04/26/2020 8:06 AM CDT Respiratory Rate 16 04/26/2020 8:06 AM CDT Oxygen Saturation 91% 04/26/2020 8:06 AM CDT Inhaled Oxygen Concentration - - Weight 101.2 kg (223 lb) 09/02/2020 9:29 AM VETERINARY LIVESTOCK INSPECTOR Height 172.7 cm (5' 8 ) 09/02/2020 9:29 AM VETERINARY LIVESTOCK INSPECTOR Body Mass Index 33.91 09/02/2020 9:29 AM VETERINARY LIVESTOCK INSPECTOR Plan of Treatment Health Maintenance Due Date Last Done Comments DIABETES ANNUAL FOOT EXAM 1962 DIABETES ANNUAL RETINAL EXAM 1962 DIABETES MICROALBUMIN ANNUAL SCREEN 1962 LDL CHOLESTEROL ANNUAL 1962 DTAP/TDAP/TD VACCINES (1 - Tdap) 1963 PNEUMOCOCCAL VACCINE 50+ YEARS (1 of 2 - PCV) 05/01/19 63 ZOSTER VACCINE (1 of 2) 1994 RSV VACCINE (60+ or ) (1 - 1-dose 75+ series) 2019 DIABETES HBA1C Q 6 MONTHS 10/11/2020 04/10/2020 INFLUENZA VACCINE (#1) 2025 Medical Devices Implanted Type Area Natural Developer Device Identifier Shelf Expiration Date Model / Serial / Lot Head Fem Art/Rah Cer Sz36 1365-36-320 - [id number] Implanted:Qty: 1 on 04/25/2020 by Vincent Watts MD at [facility] Hip Left: Hip J&J- DEPUY ROJELIO [id number] 03/03/2025 [id number] / / [id number] Stem Fem Actis Colr Std Sz6 1010-11-060 - [id number] Implanted:Qty: 1 on 04/25/2020 by Vincent Watts MD at [facility] Hip Left: Hip J[employer]J- [employer] [id number] 08/03/20291009-11-060 / / [id number] Liner Pinn Altrx Poly 1221-36-054 - [id number] Implanted:Qty: 1 on 04/25/2020 by Vincent Watts MD at [facility] Hip Left: Hip J[employer]- [employer] [id number] 12/01/2024 [id number] / / [id number] Hole Eliminator [place] 1246-03-000 - [id number] Implanted:Qty: 1 on 04/25/2020 by Vincent Watts MD at [facility] Hip Left: Hip J&J- [employer] [id number] 09/02/2029 124-000 / / [id number] Cup Pinn Sctr Series 54mm 1217-22-054 - [id number] Implanted:Qty: 1 on 04/25/2020 by Vincent Watts MD at [facility] Hip Left: Hip J&J- [employer] [id number] 03/03/2030 [id number] / / [id number] Procedures Procedure Name Priority Date/Time Associated Diagnosis Comments HEMOGLOBIN A1C Routine 04/10/2020 10:46 AM CDT from Last 3 Months or Most Recently Relevant to Health Maintenance Results * (ABNORMAL) HEMOGLOBIN A1C (04/10/2020 10:46 AM CDT) HEMOGLOBIN A1C 8.3(H) <=5.6 % 04/10/2020 11:31 AM CDT [facility] EST. AVG GLUCOSE, A1C 192 mg/dL 04/10/2020 11:31 AM CDT [facility] Blood Venipuncture / Unknown 04/10/2020 10:46 AM CDT 04/10/2020 11:17 AM CDT Narrative [facility] - 04/10/2020 11:31 AM CDT HGB A1C INTERPRETATION NORMAL: <5.7% PRE-DIABETES: 5.7 - 6.4% DIABETES: 6.5% OR GREATER us Victorino Lucas MD CHEMISTRY ORDERABLES Final Resu lt [facility] CLIA #[id number] [address] [address] from Last 3 Months or Most Recently Relevant to Health Maintenance Insurance [facility] DUAL COMPLETE MCR PPO D-SNP RX OPT[employer] RX Member Subscriber Plan / Payer (Ef fective 2017-Present) Name:Gianni Page Relation to Subscriber:Self Name:Gianni Page Payer ID:Not on file Group ID:[id number] Type:RX Medicare Part D Address: [address] Advance Directives For more information, please contact: [phone] Documents on File Type Date Recorded Patient Non Categorical Preschool Teacher Expl anation Advance Directive POA 04/25/2020 9:03 AM A dvance Directive POA * Full Code (Latest Code Status on File) Date Activated Date Inactivated Comments 04/25/2020 11:13 AM 04/26/2020 4:38 PM * Full Code Date Activated Date Inactivated Comments 04/25/2020 6:35 AM 04/25/2020 11:13 AM Care Teams It Security Architect Relationship Specialty Start Date End Date Adriel Barboza DO [address] [facility] [place] [address] PCP - General Internal Medicine 04/10/20
--- OUTSIDE RECORDS SUMMARY | 2025-05-10 15:32 | XMS_ITS | Clinical Summary ---
Author Organization [facility] Address [address] Attn: Epic Prelude ADT [address] [address] Care Team Providers Care Railroad Track Inspector Name Role Phone Adriel Barboza DO Primary Care Provide r Allergies No known active allergies Medications acetaminophen (TYLENOL) 325 mg tablet Take 650 mg by mouth 1 time daily as needed. 0 Active aspirin (ECOTRIN EC) 81 mg Tablet, Delayed Release (E.C.) Take 81 mg by mouth daily. Active allopurinoL (ZYLOPRIM) 100 mg tablet Take 100 mg by mouth daily. Active metFORMIN (GLUCOPHAGE) 850 mg tablet TAKE 1 TABLET BY MOUTH TWICE A DAY 3 9 Active rosuvastatin (CRESTOR) 20 mg tablet Take 20 mg by mouth daily. 0 Active fluticasone propionate (FLONASE) 50 mcg/spray [place], Suspension nasal inhaler INSTILL 1 SPRAY 2 TIMES DAILY 9 Active lisinopriL (PRINIVIL) 10 mg tablet Take 1 Tablet (10 mg) by mouth daily. 30 Tablet 3 3 Active furosemide (LASIX) 20 mg tablet Take 1 Tablet (20 mg) by mouth daily. 30 Tablet 3 Active methocarbamoL (ROBAXIN) 500 mg tablet Take 0.5 Tablets (250 mg) by mouth every 6 hours. 30 Tablet 3 Active metoprolol tartrate (LOPRESSOR) 25 mg tablet Take 1 Tablet (25 mg) by mouth 2 times daily. 60 Tablet 2 3 Active polyethylene glycol (MIRALAX) 17 gram Powder in Packet Take 1 Packet (17 Grams) by mouth 2 times daily as needed for Constipation. 3 Active amLODIPine (NORVASC) 2.5 mg tablet Take 2.5 mg by mouth daily. Active traMADol (ULTRAM) 50 mg tablet Take 50 mg by mouth every 6 hours as needed. Active tiotropium (Spiriva with HandiHaler) 18 mcg capsule Take 18 mcg by inhalation daily. Active potassium CHLORIDE (MICRO-K EXTENCAPS) 8 mEq Extended Release capsule Take 1 Capsule by mouth daily. Active potassium CHLORIDE (K-TAB) 20 mEq Extended Release tablet Take 1 Tablet by mouth daily with breakfast. Active montelukast (SINGULAIR) 10 mg tablet Take 10 mg by mouth daily. Active metoprolol succinate (TOPROL XL) 100 mg Extended Release 24 hour tablet Take 100 mg by mouth daily. Active isosorbide dinitrate (ISORDIL) 5 mg tablet Take 5 mg by mouth 3 times daily. Active fluticasone propion-salmet Pino (ADVAIR DISKUS,WIXELA INHUB) 500-50 mcg/dose disk inhaler Take 1 Puff by inhalation see administration instructions. Active docusate sodium (COLACE) 100 mg capsule Take 1 Tablet by mouth daily. Active fluorouraciL (EFUDEX) 5 % Cream Apply to affected area see administration instructions. Active clobetasoL (TEMOVATE) 0.05 % Cream Apply to affected area see administration instructions. Active chlorthalidone (HYGROTON) 25 mg tablet Take 1 Tablet by mouth daily. 5 Active clindamycin phosphate (CLEOCIN) 1 % Solution Apply to affected area 2 times daily. Active amoxicillin (AMOXIL) 500 mg capsule Take 500 mg by mouth 3 times daily. Active Active Problems Problem Noted Date Diagnosed Date Chronic cough 01/31/2025 Cigarette nicotine dependence in remission 01/31 History of lobectomy of lung 01/31/2025 PAF (paroxysmal atrial fibrillation) 03/15/2023 Malignant neoplasm of upper lobe of right lung 0 03/12/2023 Preop cardiovascular exam 02/18/2023 Overview (02/18/2023): Added automatically from request for surgery [id number] Other forms of angina pectoris 02/18/2023 Shortness of breath 02/18/2023 Status post total replacement of left hip 2019 Leukocytosis 04/11/2020 Overview (01/31/2021): Follow by hematology. Dr. Phoenix at the [facility] located in [place] Anemia 04/11/2020 KRISTINE (obstructive sleep apnea) 04/10/2020 Type 2 diabetes mellitus wit h hyperglycemia, without long-term current use of insulin 04/10/2020 Allergic rhinitis 04/10/2020 Essential hypertension 04/10/2020 Gout 04/10/2020 Obesity (BMI 30.0-34.9) 04/10/2020 Dyslipidemia 04/10/2020 Hyperkalemia 04/10/2020 Resolved Problems Problem Noted [...] Years Used Date Smoking Tobacco: Former Cigarettes Q uit: 04/10/2000 Passive Smoke Exposure: Past Smokeless Tobacco: Former Tobacco Cessation:Counseling Given: Not Answered Alcohol Use Standard Drinks/Week Comments Yes 3 (1 standard drink = 0.6 oz pur e alcohol) occasionally Sex and Gender Information Value Date Recorded Sex Assigned at Not on file Legal Sex Male 9:26 PM MANAGER CATEGORY Gender Identity Not on file Sexual Orientation Not on file Last Filed Vital Signs Vital Sign Reading Time Taken Comments Blood Pressure 126/60 01/24/2025 11:20 AM CDT Pulse 66 01/24/2025 11:20 AM CDT Temperature 36.1 C (97 F) 03/19/2023 7:00 AM CDT Respiratory Rate 23 03/19/2023 7:00 AM CDT Oxygen Saturation 92% 01/24/2025 11:20 AM CDT Inhaled Oxygen Concentration - - Weight 96.2 kg (212 lb) 01/24/2025 11:20 AM CDT Height 172.7 cm (5' 8 ) 01/24/2025 11:20 AM CDT Body Mass Index 32.23 01/24/2025 11:20 AM CDT Plan of Treatment Health Maintenance Due Date Last Done Comments DIABETES ANNUAL FOOT EXAM 1962 DIABETES ANNUAL RETINAL EXAM 1962 DIABETES MICROALBUMIN ANNUAL SCREEN 1962 LDL CHOLESTEROL ANNUAL 1962 DTAP/TDAP/TD VACCINES (1 - Tdap) 1963 PNEUMOCOCCAL VACCINE 50+ YEA RS (1 of 2 - PCV) 1963 ZOSTER VACCINE (1 of 2) 1994 RSV VACCINE (60+ or ) (1 - 1-dose 75+ series) 2019 DIABETES HBA1C Q 6 MONTHS 11/17/20242023, 04/10/2020, 04/10/2020 INFLUENZA VACCINE (#1) 2025 , 08/25/2022, 10/17/2021, Additional history exists Medical Devices Implanted Type Area Pediatric Oncologist Device Identifier Shelf Expiration Date Model / Serial / Lot Hemostatic Surgicel 2x3in 1953 - [id number] Implanted:Qty: 1 on 03/12/2023 by Cecil Onofre DO at [facility] Hemostatic N/A: Chest J&J- [employer] [id number] 07/03/20261952 / / [id number] Hemostatic Surgicel 2x3in 1953 - [id number] Implanted:Qty: 1 on 03/12/2023 by Cecil Onofre DO at [facility] Hemostatic N/A: Chest J&J- [employer] [id number] 10/03/20261952 / / [id number] Hemostatic Surgicel 2x3in 1953 - [id number] Implanted:Qty: 1 on 03/12/2023 by Cecil Onofre DO at [facility] Hemostatic N/A: Chest J&J- [employer] [id number] 10/03/20261952 / / [id number] Hemostatic Surgicel 2x3in 1953 - [id number] Implanted:Qty: 1 on 03/12/2023 by Cecil Onofre DO at [facility] Hemostatic N/A: Chest J&J- [employer] [id number] 10/03/20261952 / / [id number] Hemostatic Surgicel 2x3in 1953 - [id number] Implanted:Qty: 1 on 03/12/2023 by Cecil Onofre DO at [facility] Hemostatic N/A: Chest J&J- [employer] [id number] 10/03/20261952 / / [id number] Hemostatic Surgicel 2x3in 1953 - [id number] Implanted:Qty: 1 on 03/12/2023 by Cecil Onofre DO at [facility] Hemostatic N/A: Chest J[employer]J- [employer] [id number] 10/03/20261952 / / [id number] Hemostatic Surgicel 2x3in 1953 - [id number] Implanted:Qty: 1 on 03/12/2023 by Cecil Onofre DO at [facility] Hemostatic N/A: Chest J[employer]J- [employer] [id number] 10/03/20261952 / / [id number] Hemostatic Surgicel 2x3in 1953 - [id number] Implanted:Qty: 1 on 03/12/2023 by Cecil Onofre DO at [facility] Hemostatic N/A: Chest J[employer] [id number] 10/03/20261952 / / [id number] Hemostatic Surgicel 2x3in 1953 - [id number] Implanted:Qty: 1 on 03/12/2023 by Cecil Onofre DO at [facility] Hemostatic N/A: Chest J&J- [employer] [id number] 10/03/20261952 / / [id number] Hemostatic Surgicel 2x3in 1953 - [id number] Implanted:Qty: 1 on 03/12/2023 by Cecil Onofre DO at [facility] Hemostatic N/A: Chest J[employer]J- [employer] [id number] 10/03/20261952 / / [id number] Hemostatic Surgicel 2x3in 1953 - [id number] Implanted:Qty: 1 on 03/12/2023 by Cecil Onofre DO at [facility] Hemostatic N/A: Chest J[employer] [id number] 10/03/20261952 / / [id number] Hemostatic Surgicel 2x3in 1953 - [id number] Implanted:Qty: 1 on 03/12/2023 by Cecil Onofre DO at [facility] Hemostatic N/A: Chest J[employer]J- [employer] [id number] 10/03/20261952 / / [id number] Cup Pinn Sctr Series 54mm 1217-22-054 - [id number] Implanted:Qty: 1 on 04/25/2020 by Vincent Watts MD Hip Left: Hip J&J- [employer] [id number] 03/03/2030 [id number] / / [id number] Head Fem Art/Rah Cer 36 1365-36-320 - [id number] Implanted:Qty: 1 on 04/25/2020 by Vincent Watts MD Hip Left: Hip J&J- DEPUY ROJELIO [id number] 03/03/2025 [id number] / / [id number] Hole Eliminator [place] 124000 - [id number] Implanted:Qty: 1 on 04/25/2020 by Vincent Watts MD Hip Left: Hip J&J- [employer] [id number] 09/02/2029 / / [id number] Liner Pinn Altrx Poly 1221-36-054 - [id number] Implanted:Qty: 1 on 04/25/2020 by Vincent Watts MD Hip Left: Hip J[employer]J- [employer] [id number] 12/01/2024 [id number] / / [id number] Stem Fem Actis Colr Std Sz6 1010-11-060 - [id number] Implanted:Qty: 1 on 04/25/2020 by Vincent Watts MD Hip Left: Hip J&J- [employer] [id number] 08/03/2029 1010-11-060 / / [id number] Sealant Progel Pleural 4ml [id number] - [id number] Implanted:Qty: 1 on 03/12/2023 by Cecil Onofre DO at [facility] Tissue N/A: Chest BARD DAVOL 06/28/2024 [id number] / / [id number] Sealant Progel Pleural 4ml [id number] - [id number] Implanted:Qty: 1 on 03/12/2023 by Cecil Onofre DO at [facility] Tissue N/A: Chest BARD DAVOL 06/28/2024 [id number] / / [id number] Procedures Procedure Name Priority Date/Time Associated Diagnosis Comments HEMOGLOBIN A1C Routine 04/10/2020 10:46 AM CDT from Last 3 Months or Most Recently Relevant to Health Maintenance Results * (ABNORMAL) HEMOGLOBIN A1C (04/10/2020 10:46 AM CDT) HEMOGLOBIN A1C 8.3(H) <=5.6 % 04/10/2020 11:31 AM CDT [facility] EST. AVG GLUCOSE, A1C 192 mg/dL 04/10/2020 11:31 AM CDT [facility] Blood Venipuncture / Unknown 04/10/2020 10:46 AM CDT 04/10/2020 11:17 AM CDT Narrative [facility] - 04/10/2020 11:31 AM CDT HGB A1C INTERPRETATION NORMAL: <5.7% PRE-DIABETES: 5.7 - 6.4% DIABETES: 6.5% OR GREATER us Victorino Lucas MD CHEMISTRY ORDERABLES Final Resu lt [facility] #[id number] [address] [address] [facility] #[id number] [address] [place] [address] from Last 3 Months or Most Recently Relevant to Health Maintenance Insurance [facility] [id number] * Guarantor: GIANNI ALBARADO Account Type Relation to Patient Date of Phone Billing Address Personal/Family [address] [place] [address] RX [employer] RX Member Subscriber Plan / Payer (Ef fective 2017-Present) Name:Gianni Albarado Relation to Subscriber:Self Name:Gianni Albarado Payer ID:Not on file Group ID:[id number] Type:RX Medicare Part D Address: [address] Advance Directives For more information, please contact: [phone] Documents on File Type Date Recorded Patient Motor Tester Expl anation Advance Directive POA 04/25/2020 9:03 AM A dvance Directive POA * Full Code (Latest Code Status on File) Date Activated Date Inactivated Comments 03/12/2023 5:46 PM 03/19/2023 1:32 PM * Full Code Date Activated Date Inactivated Comments 03/12/2023 7:48 AM 03/12/2023 5:46 PM * Full Code Date Activated Date Inactivated Comments 02/22/2023 12:42 PM 02/22/2023 4:44 PM * Full Code Date Activated Date Inactivated Comments 02/22/2023 10:17 AM 02/22/2023 12:42 PM Care Teams Railroad Track Inspector Relationship Specialty Start Date End Date Adriel Barboza DO [address] [address] PCP - General Internal Medicine 04/10/20
--- OUTSIDE RECORDS SUMMARY | 2025-05-10 15:32 | XMS_ITS ---
Author Organization [facility] Address [address] [facility] Attn: Epic Prelude ADT JEWELL CRISOSTOMO [id number] Care Team Providers Care Bell Person Name Role Phone Adriel Barboza DO Primary Care Provide r Active Problems Problem Noted Date Diagnosed Date Chronic cough 01/31/2025 Cigarette nicotine dependence in remission 01/31 History of lobectomy of lung 01/31/2025 PAF (paroxysmal atrial fibrillation) 03/15/2023 Malignant neoplasm of upper lobe of right lung 0 03/12/2023 Preop cardiovascular exam 02/18/2023 Overview (02/18/2023): Added automatically from request for surgery [id number] Other forms of angina pectoris 02/18/2023 Shortness of breath 02/18/2023 Status post total replacement of left hip 2019 Leukocytosis 04/11/2020 Overview (01/31/2021): Follow by hematology. Dr. Phoenix at the [facility] located in [facility] Anemia 04/11/2020 KRISTINE (obstructive sleep apnea) 04/10/2020 Type 2 diabetes mellitus wit h hyperglycemia, without long-term current use of insulin 04/10/2020 Allergic rhinitis 04/10/2020 Essential hypertension 04/10/2020 Gout 04/10/2020 Obesity (BMI 30.0-34.9) 04/10/2020 Dyslipidemia 04/10/2020 Hyperkalemia 04/10/2020 Current Treatment and Therapy Plans No current plan information found. Past Treatment and Therapy Plans No past plan information found. Lifetime Dose Tracking * Chemical Lifetime Dose Automatic Entry Manual Entr y Air Kerma 212 mGy 0 mGy 212 mGy Dose Area Product (DAP) 11.3 Gy-cm2 0 Gy-cm2 11.3 Gy-cm2 Resolved Problems Problem Noted Date Diagnosed Date Resolved Date Primary osteoarthritis of left hip 04/10/2020 05/22/2020 Preoperative general physical examination 04/10/2020 04/24/2020
[2025-05-10 15:59] VITALS: BP 106/54; PULSE 72; RESP 16; TEMP 36.7; O2SAT 90; BMI 30.4
--- NOTE | 2025-05-10 16:31 | CTR_ITS ---
PROCEDURE INFORMATION: Exam: CT Head Without Contrast Exam date and time: 05/10/2025 5:15 PM Age: 80 years old Clinical indication: Injury or trauma; Fall; Blunt trauma (contusions or hematomas); Consciousness not specified; Additional info: Fall/head injury TECHNIQUE: Imaging protocol: Computed tomography of the head without contrast. Radiation optimization: All CT scans at this facility use at least one of these dose optimization techniques: automated exposure control; mA and/or kV adjustment per patient size (includes targeted exams where dose is matched to clinical indication); or iterative reconstruction. COMPARISON: PT PET skull to thigh INIT [id number] 01/30/2023 1:31 PM RADIATION DOSE METRICS: Total DLP (mGy-cm): 1164.8 FINDINGS: Brain: There is a small volume of subarachnoid blood in the left sylvian fissure. There is diffuse cerebral atrophy and chronic microvascular white matter disease. There is no significant mass effect or midline shift. Cerebral ventricles: There is no significant ventricular dilation. The basal cisterns are unremarkable. Pituitary gland and sella: Empty sella. Paranasal sinuses: The paranasal sinuses are clear. Mastoid air cells: The mastoid air cells are clear. Bones: The calvarium is intact. Soft tissues: The visible extracranial soft tissues are unremarkable. CT/CT head wo con* [id number] IMPRESSION: Small volume subarachnoid hemorrhage isolated in the left sylvian fissure. No mass effect.
--- NOTE | 2025-05-10 16:31 | CTR_ITS ---
PROCEDURE INFORMATION: Exam: CT Cervical Spine Without Contrast Exam date and time: 05/10/2025 5:15 PM Age: 80 years old Clinical indication: Injury or trauma; Fall; Blunt trauma; Additional info: Fall/head injury TECHNIQUE: Imaging protocol: Computed tomography of the cervical spine without contrast. Radiation optimization: All CT scans at this facility use at least one of these dose optimization techniques: automated exposure control; mA and/or kV adjustment per patient size (includes targeted exams where dose is matched to clinical indication); or iterative reconstruction. COMPARISON: PT PET skull to thigh INIT [id number] 01/30/2023 1:31 PM RADIATION DOSE METRICS: Total DLP (mGy-cm): 235.5 FINDINGS: Bones: Spinal alignment is normal. Vertebral body height is maintained. There is moderate degenerative disc disease in the cervical spine. There is moderate multilevel facet spondylosis. No acute fracture. There is mild to moderate multilevel spinal canal stenosis. Lungs: Left apex is clear. Vasculature: There is moderate atherosclerotic disease of the carotid arteries bilaterally. Soft tissues: Soft tissues in the neck and thoracic inlet are unremarkable. CT/CT cervical spin wo con* [id number] IMPRESSION: No acute fracture.
--- NOTE | 2025-05-10 16:31 | XRR_ITS ---
PROCEDURE INFORMATION: Exam: XR Left Shoulder Exam date and time: 05/10/2025 4:33 PM Age: 80 years old Clinical indication: Injury or trauma; Fall; Blunt trauma (contusions or hematomas); Shoulder; Left; Prior surgery; Surgery date: 6+ months; Surgery type: Rotator cuff repair; Additional info: Fall/deformity TECHNIQUE: Imaging protocol: Radiologic exam of the left shoulder. Views: 2 or more views. COMPARISON: CT chest w con* [id number] 12/18/2024 11:01 AM FINDINGS: Bones/joints: The distal clavicle is markedly elevated relative to the acromion. The coracoclavicular distance is abnormally widened at 23 mm. Glenohumeral alignment is normal. There is a surgical anchor in the humeral head. There are mild glenohumeral osteophytes. Glenohumeral joint space is suboptimally evaluated without Grashey or axillary views. No acute fracture. Soft tissues: Visible soft tissues are unremarkable. XR/XR shoulder LT min 2V* [id number] IMPRESSION: Type 3 left AC joint separation
[2025-05-10] MEDS: HYDROmorphone tab 2 MG TABLET PO (17:41)
[2025-05-10 17:45] VITALS: BP 134/62; PULSE 66; O2SAT 91
--- NOTE | 2025-05-10 18:18 | W.ED.FALL ---
HPI - Fall General: Chief Complaint: Fall Stated Complaint: fall Time Seen by Provider: 05/10/25 16:18 History of Present Illness: This is a 80-year-old man that presents the emergency room after having had a fall. His chief complaint is right shoulder pain. He was seen by the OXIDATION OPERATOR. Found to have an AC separation. He also hit his head and had an abrasion on his forehead. CT showed small intracranial subarachnoid hemorrhage and he is being shipped to [place] for further evaluation by neurosurgery. He currently has no altered mental status. No vomiting. He has a mild headache. When I see him he is in a shoulder immobilizer and orthopedics has been consulted. Related Data Home Medications ?Medication ?Instructions ?Recorded ?Confirmed aspirin 81 mg chewable tablet 81 mg PO DAILY 12/03/22 03/22/25 metformin 850 mg tablet 850 mg PO BID 12/03/22 03/22/25 allopurinol 100 mg tablet 100 mg PO DAILY 03/23/23 03/22/25 montelukast 10 mg tablet 10 mg PO DAILY 09/18/24 03/22/25 Previous Rx's ?Medication ?Instructions ?Recorded chlorthalidone 25 mg tablet 25 mg PO DAILY #90 tabs 10/19/24 potassium chloride 8 mEq 8 meq PO DAILY #90 caps 10/19/24 capsule,extended release fluticasone propionate 50 1 spray intranasal BID PRN allergy 10/23/24 mcg/actuation nasal symptoms 90 days #48 grams spray,suspension metoprolol tartrate 25 mg tablet See Rx Instructions .Route 03/12/25 .COMPLEX #180 tabs rosuvastatin 20 mg tablet See Rx Instructions .Route 03/12/25 Held on 03/22/25. .COMPLEX #90 tabs Instructions: Home Medication placed on hold at Doctor's office furosemide 40 mg tablet (Lasix) 40 mg PO DAILY 90 days #90 tabs 04/16/25 losartan 50 mg tablet 50 mg PO BID 90 days #180 tabs 04/16/25 Allergies Allergy/AdvReac Type Severity Reaction Status Date / Time No Known Allergies Allergy Verified 05/10/25 16:02 Review of Systems Narrative: Constitutional symptoms: Negative except as documented in HPI. Skin symptoms: Negative except as documented in HPI. Eye symptoms: Negative except as documented in HPI. ENMT symptoms: Negative except as documented in HPI. Respiratory symptoms: Negative except as documented in HPI. Cardiovascular symptoms: Negative except as documented in HPI. Gastrointestinal symptoms: Negative except as documented in HPI. Genitourinary symptoms: Negative except as documented in HPI. Musculoskeletal symptoms: Negative except as documented in HPI. Neurologic symptoms: Negative except as documented in HPI. Psychiatric symptoms: Negative except as documented in HPI. Endocrine symptoms: Negative except as documented in HPI. PFSH ED PFSH: Medical History (Updated 05/10/25 @ 18:05 by TIMOTHY Elias) CLL (chronic lymphocytic leukemia) Hypertension Prediabetes HOCM (hypertrophic obstructive cardiomyopathy) Surgical History History of hip surgery Family History Other CAD (coronary artery disease) Social History Smoking and tobacco/nicotine status: former use of tobacco/nicotine Quit status (tobacco/nicotine): has quit using Year quit tobacco: quit 25 years ago Former quit date comment: smoked for 45 + years Alcohol intake: current Alcohol intake frequency: few times a week Additional social history: Family history of Malignant Hyperthermia-Anesthesia Housing: House Physical Exam Narrative: EXAM NARRATIVE: General: Alert, no acute distress. Skin: Warm, dry. Head: Normocephalic, abrasion on the forehead. Neck: Supple, trachea midline. Eye: Extraocular movements are intact. Ears, nose, mouth and throat: mucosa moist. Cardiovascular: Regular, Normal peripheral perfusion. Respiratory: Lungs are clear to auscultation, respirations are non-labored, breath sounds are equal, Symmetrical chest wall expansion. Gastrointestinal: Soft, Nontender, Non distended Musculoskeletal: Very tender distal clavicle shoulder area. Range of motion limited by immobilizer and pain. Neurological: Alert and oriented, No focal neurological deficit observed. Psychiatric: Cooperative, appropriate mood & affect. Course Vital Signs: Vital signs: Vital Signs Temperature 98.0 F 05/10/25 15:59 Pulse Rate 66 05/10/25 17:45 Respiratory Rate 16 05/10/25 15:59 Blood Pressure 134/62 05/10/25 17:45 Pulse Oximetry 91 05/10/25 17:45 Oxygen Delivery Me thod Room Air 05/10/25 17:45 MDM - Fall Medical Decision Making Assessment and plan: Intracranial hemorrhage Type III AC dislocation Fall Head injury -I discussed the patient with the accepting physician on-call. - Discussed findings and plan with patient. Answered any questions. - All laboratory values were reviewed and interpreted personally by myself, the ER physician - All imaging was reviewed and interpreted personally by myself, the ER physician. - Evaluation and treatment of this problem were appropriate in the emergency setting Lab Data Radiology Impressions Cervical Spine CT 05/10/25 16:31 IMPRESSION: No acute fracture. Head CT 05/10/25 16:31 IMPRESSION: Small volume subarachnoid hemorrhage isolated in the left sylvian fissure. No mass effect. ADDENDUM: 05/10/25 1747 THIS REPORT CONTAINS FINDINGS THAT MAY BE CRITICAL TO PATIENT CARE. The findings and recommendations were personally verbally communicated via telephone conference with YOLIS HUFFMAN at 5:44 PM CDT on 05/10/2025. The findings were acknowledged and understood. Shoulder X-Ray 05/10/25 16:31 IMPRESSION: Type 3 left AC joint separation All radiology interpretation(s) finalized by discharge Discharge Plan Discharge Patient Disposition: Xfer Short-Term Hosp Clinical Impression: Subarachnoid hemorrhage Acromioclavicular joint separation, type 3 Qualifiers: Encounter type: initial encounter Laterality: left Qualified Code(s): S43.102A - Unspecified dislocation of left acromioclavicular joint, initial encounter Condition: Stable Referrals: Spencer Merchant DO [Primary Care Provider, [facility]] Print Language: Cuban Coding Level of Care Code ED Dragline Operator Helper for Mansoor Laird
--- NOTE | 2025-05-10 18:20 | W.ED.FALL ---
HPI - Fall General: Chief Complaint: Fall Stated Complaint: fall Time Seen by Provider: 05/10/25 16:18 Source: patient Mode of arrival: ambulatory Limitations: no limitations History of Present Illness: Patient is an 80-year-old male who presents to the emergency department after a fall. He reportedly was getting out of a hot tub, he accidentally tripped and fell onto his left shoulder, causing obvious deformity. Also hit his head, denies loss of consciousness or use of blood thinner. He has not had any neurological deficits since, no vomiting, no seizure-like activity, no lethargy or respiratory difficulties. Has been ambulatory since, states he cannot move his left arm secondary to the pain and limitations in range of motion. History of shoulder procedure in the past on the left. No neurovascular complaints with his left upper extremity at this time, no other injuries reported. This fall occurred just prior to arrival. There was no prolonged downtime, eventually was able to pull himself up under his own power. MD complaint: fall Onset (ago): minute(s) Fall from: other (Getting out of the tub) Fall witnessed: yes, by family Loss of consciousness: None Prolonged down time: no Symptoms prior to fall: none Context: tripped/slipped Location of injury: head Location of injury - extremities: Left: shoulder Associated symptoms-after fall: Denies abdominal pain, chest pain, headache(s), lightheadedness or neck pain Related Data Home Medications ?Medication ?Instructions ?Recorded ?Confirmed aspirin 81 mg chewable tablet 81 mg PO DAILY 12/03/22 03/22/25 metformin 850 mg tablet 850 mg PO BID 12/03/22 03/22/25 allopurinol 100 mg tablet 100 mg PO DAILY 03/23/23 03/22/25 montelukast 10 mg tablet 10 mg PO DAILY 09/18/24 03/22/25 Previous Rx's ?Medication ?Instructions ?Recorded chlorthalidone 25 mg tablet 25 mg PO DAILY #90 tabs 10/19/24 potassium chloride 8 mEq 8 meq PO DAILY #90 caps 10/19/24 capsule,extended release fluticasone propionate 50 1 spray intranasal BID PRN allergy 10/23/24 mcg/actuation nasal symptoms 90 days #48 grams spray,suspension metoprolol tartrate 25 mg tablet See Rx Instructions .Route 03/12/25 .COMPLEX #180 tabs rosuvastatin 20 mg tablet See Rx Instructions .Route 03/12/25 Held on 03/22/25. .COMPLEX #90 tabs Instructions: Home Medication placed on hold at Doctor's office furosemide 40 mg tablet (Lasix) 40 mg PO DAILY 90 days #90 tabs 04/16/25 losartan 50 mg tablet 50 mg PO BID 90 days #180 tabs 04/16/25 Allergies Allergy/AdvReac Type Severity Reaction Status Date / Time No Known Allergies Allergy Verified 05/10/25 16:02 Review of Systems General: Reports: 10 or more systems reviewed and unremarkable except in HPI and below Const: Reports: other (Fall); Denies: fever(s), chills or fatigue Eyes: Denies: change in vision ENMT: Denies: throat pain, ear or mastoid pain or nasal discharge Card: Denies: chest pain, palpitations, swelling of feet/ankles or lightheadedness Resp: Denies: dyspnea, productive cough or wheezing GI: Denies: abdominal pain, nausea, vomiting, diarrhea or constipation : Denies: flank pain, difficulty urinating, dysuria or urinary frequency Musc: Reports: joint pain (Left shoulder) and limited range of motion (Left shoulder); Denies: neck pain or back pain Skin/Breast: Denies: rash Neuro: Denies: headache(s), numbness in extremities, weakness in extremities, behavioral changes, Slurred speech present, seizure-like activity or involuntary movements PFSH ED PFSH: Medical History CLL (chronic lymphocytic leukemia) Hypertension Prediabetes HOCM (hypertrophic obstructive cardiomyopathy) Surgical History History of hip surgery Family History Other CAD (coronary artery disease) Social History Smoking and tobacco/nicotine status: former use of tobacco/nicotine Quit status (tobacco/nicotine): has quit using Year quit tobacco: quit 25 years ago Former quit date comment: smoked for 45 + years Alcohol intake: current Alcohol intake frequency: few times a week Additional social history: Family history of Malignant Hyperthermia-Anesthesia Housing: House Physical Exam Const: COMMON NORMALS: no acute distress, patient oriented x3, no limitations, healthy appearing, alert and well nourished HENMT: COMMON NORMALS: normocephalic and atraumatic HEAD & SCALP: normocephalic and atraumatic; no Malone's sign and no raccoon eyes OTHER: Contusion/abrasion to frontal scalp, no palpable skull fracture Eye: COMMON NORMALS: Equal, round and reactive pupils present, EOMs intact bilaterally and conjunctivae normal CONJUNCTIVA: Yes conjunctivae normal PUPIL: Yes Equal, round and reactive pupils present OTHER: Eyes track midline Neck/C-Spine: COMMON NORMALS: full ROM, supple and no meningeal signs CERVICAL SPINE: Yes cervical ROM normal OTHER: No cervical spine tenderness Resp: COMMON NORMALS: normal respiratory effort, No use of accessory muscles and clear to auscultation bilaterally AUSCULTATION: clear to auscultation bilaterally Cardio: COMMON NORMALS: regular rate and regular rhythm RATE: regular rate RHYTHM: regular rhythm Extremity: COMMON NORMALS: capillary refill normal, no joint enlargement and no clubbing, cyanosis or edema NARRATIVE EXTREMITY EXAM: There appears to be obvious deformity of the left shoulder, elevated clavicle on the left indicating AC joint injury. Distal neurovascular exam is normal on the left, normal radial pulse and sensations intact. Severely limited to no range of motion of the left shoulder secondary to pain. Neuro: COMMON NORMALS: patient oriented x3, moves all extremities, no focal motor deficits and no sensory deficits noted SENSORIUM/ORIENTATION: Yes alert MENINGEAL SIGNS: Yes no meningeal signs SPEECH: speech normal Skin: COMMON NORMALS: no rashes or lesions noted GENERAL SKIN EXAM: no rashes or lesions noted Course Vital Signs: Vital signs: Vital Signs Temperature 98.0 F 05/10/25 15:59 Pulse Rate 66 05/10/25 17:45 Respiratory Rate 16 05/10/25 15:59 Blood Pressure 134/62 05/10/25 17:45 Pulse Oximetry 91 05/10/25 17:45 Oxygen Delivery Me thod Room Air 05/10/25 17:45 MDM - Fall Medical Decision Making Patient presenting after falling while getting out of a hot tub, no symptoms preceding this, and he states this was accidental. He landed primarily on his left shoulder, but also struck his head. No blood thinner use and no concerning intracranial signs or symptoms. The x-ray of his left shoulder confirms a type III left AC joint separation, I had spoken with on-call orthopedist, Dr. Rivera, who recommends sling and follow-up. His neurovascular status was normal in the left upper extremity. Subsequently his head CT shows small volume subarachnoid hemorrhage, his blood pressure has been stable throughout ED stay. No neurological deficits on initial exam and serial reevaluation shows no development. Spoke with [facility] in regards to transfer, he will transfer by ACLS to the emergency department where he will be consulted by neuro trauma. Informed patient and family this plan, all other questions and concerns addressed. Lab Data Radiology Impressions Cervical Spine CT 05/10/25 16:31 IMPRESSION: No acute fracture. Head CT 05/10/25 16:31 IMPRESSION: Small volume subarachnoid hemorrhage isolated in the left sylvian fissure. No mass effect. ADDENDUM: 05/10/25 1747 THIS REPORT CONTAINS FINDINGS THAT MAY BE CRITICAL TO PATIENT CARE. The findings and recommendations were personally verbally communicated via telephone conference with YOLIS HUFFMAN at 5:44 PM CDT on 05/10/2025. The findings were acknowledged and understood. Shoulder X-Ray 05/10/25 16:31 IMPRESSION: Type 3 left AC joint separation All radiology interpretation(s) finalized by discharge Discharge Plan Discharge Patient Disposition: Xfer Short-Term Hosp Clinical Impression: Subarachnoid hemorrhage, Acromioclavicular joint separation, type 3 Condition: Stable Referrals: Spencer Merchant DO [Primary Care Provider, [facility]] Print Language: Bengali Coding Level of Care Code ED Community Program Assistant for Mansoor Laird
[2025-05-10 18:33] VITALS: BP 157/86; PULSE 64; O2SAT 93
[2025-05-10 19:44] VITALS: BP 158/79; PULSE 66; O2SAT 93
== END 2025-05-10 19:47 | disposition short-term general hospital (02) ==
PROVIDERS: Emergency Provider Physician Assistant; PCP Family Medicine
DX: S06.6X0A Traumatic subarachnoid hemorrhage without loss of consciousness, initial encounter (principal); S43.102A Unspecified dislocation of left acromioclavicular joint, initial encounter; Z87.891 Personal history of nicotine dependence; I10 Essential (primary) hypertension; W19.XXXA Unspecified fall, initial encounter
CPT/HCPCS: 70450; 72125; 73030; 99284; A4565; J9999

== ENCOUNTER → 2025-05-17 14:12 | Outpatient (BNVA) | payer MEDICARE, SELFPAY | PROVIDERS: PCP Family Medicine; Visit Provider Orthopaedic Surgery | DX: S43.102A Unspecified dislocation of left acromioclavicular joint, initial encounter (principal); W19.XXXA Unspecified fall, initial encounter | CPT/HCPCS: 73030; 99203 ==

== ENCOUNTER 2025-05-28 15:56 | Outpatient (CLI) | payer MEDICARE, SELFPAY ==
--- NOTE | 2025-05-28 16:08 | CT_ITS ---
WS: [id number] CT HEAD NONCONTRAST HISTORY: NONTRAUMATIC SUBARACHNOID HEMORRHAGE, UNSPECIFIED TECHNIQUE: Contiguous axial imaging performed through the brain. Bone and soft tissue windows. Sagittal and coronal reformats reviewed. All CT scans at [facility] use at least one of these dose optimization techniques: automated exposure control; mA and/or kV adjustment per patient size (includes targeted exams where dose is matched to clinical indication); or iterative reconstruction. DLP: 1150.67 mGy.cm COMPARISON: 05/10/2025 Recently described acute subarachnoid blood LEFT sylvian fissure has completely resolved. No new or or additional blood products are identified. Diffuse cerebral atrophy and chronic microvascular white matter disease. No mass effect or midline shift. No prior infarct. Subtle area of decreased attenuation in the inferior LEFT basal ganglia may be a prior lacunar infarct. Ventricles: Mildly prominent ventricles and extra-axial spaces on the basis of atrophy. No inferior displacement the cerebellar tonsils. Paranasal sinuses: As visualized are clear. Mastoid air cells: Well pneumatized. Calvarium and scalp: Skull is intact with no soft tissue edema or swelling. Advanced calcification of the vertebral and intracranial carotid arteries. CT/CT head wo con* [id number] IMPRESSION: 1. Interval resolution previously described acute subarachnoid hemorrhage in t he LEFT sylvian fissure. 2. No new or additional acute blood products. 3. Moderate diffuse cerebral atrophy and small vessel disease. 4. Extensive atherosclerosis in the vertebral and intracranial carotid arterie s.
== END 2025-05-28 15:57 | disposition home or self-care (01) ==
LOC: RAD 15:58
PROVIDERS: PCP Family Medicine; Visit Provider Neurological Surgery
DX: I60.9 Nontraumatic subarachnoid hemorrhage, unspecified (principal); I67.89 Other cerebrovascular disease; G31.9 Degenerative disease of nervous system, unspecified; I65.29 Occlusion and stenosis of unspecified carotid artery; I67.2 Cerebral atherosclerosis
CPT/HCPCS: 70450

== ENCOUNTER → 2025-05-31 13:23 | Outpatient (BNVA) | payer MEDICARE, SELFPAY | PROVIDERS: PCP Family Medicine; Visit Provider Orthopaedic Surgery | DX: S43.109D Unspecified dislocation of unspecified acromioclavicular joint, subsequent encounter (principal); X58.XXXD Exposure to other specified factors, subsequent encounter | CPT/HCPCS: 73030; 99213 ==

== ENCOUNTER → 2025-06-21 13:41 | Outpatient (BNVA) | payer MEDICARE, SELFPAY | PROVIDERS: PCP Family Medicine; Visit Provider Orthopaedic Surgery | DX: S43.109D Unspecified dislocation of unspecified acromioclavicular joint, subsequent encounter (principal); X58.XXXD Exposure to other specified factors, subsequent encounter | CPT/HCPCS: 73030; 99024; 99213 ==

== ENCOUNTER → 2025-06-25 13:49 | Outpatient (BNVA) | payer MEDICARE, SELFPAY | PROVIDERS: PCP Family Medicine; Visit Provider Nurse Practitioner Family | DX: L81.4 Other melanin hyperpigmentation (principal); L82.1 Other seborrheic keratosis; L57.8 Other skin changes due to chronic exposure to nonionizing radiation; Z08 Encounter for follow-up examination after completed treatment for malignant neoplasm; Z86.007 Personal history of in-situ neoplasm of skin; Z09 Encounter for follow-up examination after completed treatment for conditions other than malignant neoplasm; Z87.2 Personal history of diseases of the skin and subcutaneous tissue; L57.0 Actinic keratosis | CPT/HCPCS: 17000; 99213 ==

== ENCOUNTER 2025-06-28 10:19 | Oncology outpatient (recurring) (ONCR) | payer MEDICARE, SELFPAY ==
--- NOTE | 2025-06-28 10:30 | CT_ITS ---
WS: [id number] CT CHEST TECHNIQUE: Contrast enhanced CT of the chest with coronal and sagittal reformatted images. CLINICAL INFORMATION: surveillance COMPARISON: 12/18/2024 DLP: 534.[address] scans at [facility] use at least one of these dose optimization techniques: automated exposure control; mA and/or kV adjustment per patient size (includes targeted exams where dose is matched to clinical indication); or iterative reconstruction. FINDINGS: Prior postoperative changes RIGHT upper lobectomy. No new suspicious pulmonary parenchymal abnormalities. Mild chronic emphysematous changes. Pleural- parenchymal scarring in the RIGHT greater than LEFT lung apices. Traction bronchiectasis RIGHT upper lobe. Subsegmental atelectasis with parenchymal scarring in the RIGHT lower lobe unchanged. Coronary calcification. No mediastinal or hilar lymphadenopathy. Aortic calcification. Fatty liver. Small esophageal hiatal hernia. Adrenal glands are normal. Partially visualized RIGHT renal cyst measuring at least 5.0 cm. Dense calcification of the celiac and SMA origins. 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 IMPRESSION: 1. No new suspicious pulmonary parenchymal abnormalities. 2. Stable postoperative changes RIGHT upper lobectomy similar to previous. 3. No mediastinal or hilar lymphadenopathy. 4. No other significant changes compared to previous.
[2025-06-28 10:49] LABS: Hematocrit 39.2 % (37-53); Hemoglobin 12.90 g/dL (11.27-16.99); Mean Corpuscular HGB Conc 32.9 g/dL (30-55); Mean Corpuscular Hemoglobin 30.2 pg (27-33); Mean Corpuscular Volume 91.8 fl (82-101); Nucleated Red Blood Cells % 0 %; Platelet Count 196 10^3/cmm (157-399); Red Blood Count 4.27 10^6/uL (3.85-5.65); White Blood Count 17.63 10^3/uL (3.29-11.43)
[2025-06-28 10:54] LABS: Blood Urea Nitrogen 13 mg/dL (8-23)
[2025-06-28] MEDS: iohexol 350 mg/mL 500 mL Btl (per mL) IV (11:07)
[2025-06-28 11:15] LABS: Alanine Aminotransferase 48 U/L (0-41); Albumin Level 4.6 g/dL (3.5-5.2); Alkaline Phosphatase 53 U/L (40-130); Anion Gap 17.9 (5-19); Aspartate Amino Transferase 42 U/L (0-40); Blood Urea Nitrogen 14 mg/dL (8-23); Calcium 9.4 mg/dL (8.5-10.5); Carbon Dioxide 26 mmol/L (22-29); Chloride 99 mmol/L (98-107); Globulin 2.6 g/dL (1.3-4.6); Glucose 164 mg/dL (65-115); Osmolality Calculated 290 mOsm/kg (285-295); Potassium 4.9 mmol/L (3.5-5.1); Sodium 138 mmol/L (136-145); Total Protein 7.2 g/dL (6.6-8.7)
[2025-06-28 11:24] LABS: Slide Review Slide Review Perform
== END 2025-07-03 23:59 | disposition home or self-care (01) ==
PROVIDERS: Nurse Practitioner Family; PCP Family Medicine; Visit Provider Internal Medicine
DX: Z08 Encounter for follow-up examination after completed treatment for malignant neoplasm (principal); Z85.6 Personal history of leukemia; Z85.118 Personal history of other malignant neoplasm of bronchus and lung; J43.9 Emphysema, unspecified; J98.4 Other disorders of lung; J47.9 Bronchiectasis, uncomplicated; J98.11 Atelectasis; I25.10 Atherosclerotic heart disease of native coronary artery without angina pectoris; I70.0 Atherosclerosis of aorta; K76.0 Fatty (change of) liver, not elsewhere classified; K44.9 Diaphragmatic hernia without obstruction or gangrene; N28.1 Cyst of kidney, acquired; I70.8 Atherosclerosis of other arteries; K55.1 Chronic vascular disorders of intestine; M40.294 Other kyphosis, thoracic region; M43.24 Fusion of spine, thoracic region; Z87.891 Personal history of nicotine dependence; Z90.2 Acquired absence of lung [part of]
CPT/HCPCS: 71260; 80053; 82565; 83615; 84520; 85025; 99214

== ENCOUNTER → 2025-08-02 14:27 | Outpatient (BNVA) | payer MEDICARE, SELFPAY | PROVIDERS: PCP Family Medicine; Visit Provider Orthopaedic Surgery | DX: S42.002D Fracture of unspecified part of left clavicle, subsequent encounter for fracture with routine healing (principal); X58.XXXD Exposure to other specified factors, subsequent encounter | CPT/HCPCS: 73030; 99213 ==

== ENCOUNTER → 2025-08-22 14:24 | Outpatient (BNVA) | payer MEDICARE, SELFPAY | PROVIDERS: PCP Family Medicine; Visit Provider Internal Medicine Cardiovascular Disease | DX: I25.10 Atherosclerotic heart disease of native coronary artery without angina pectoris (principal); I10 Essential (primary) hypertension; E78.5 Hyperlipidemia, unspecified; R06.02 Shortness of breath; I25.2 Old myocardial infarction; Z87.891 Personal history of nicotine dependence | CPT/HCPCS: 99214 ==